=== PATIENT | female | born 1955 | race Caucasian/White ===

== ENCOUNTER 2020-12-25 11:12 | Inpatient (IN) | payer BC, MEDICARE ==
[2020-12-25] MEDS ORDERED: HEPARIN SOD,PORK IN 0.45% NACL 25,000 UNIT in 0.45% NACL 1 250ML.BAG IV ONE (11:55)
[2020-12-25] MEDS ORDERED: LIDOCAINE 1% INJ 10MG/ML (20 ML MDV) ONE (12:27)
[2020-12-25] MEDS ORDERED: VERAPAMIL 2.5 MG/ML 2 ML AMP ONE (12:27)
[2020-12-25] MEDS ORDERED: TICAGRELOR 90 MG TAB ONE (12:38)
[2020-12-25] MEDS ORDERED: LIDOCAINE 1% INJ 10MG/ML (20 ML MDV) SQ ONE (12:40)
[2020-12-25] MEDS ORDERED: TICAGRELOR 90 MG TAB PO ONE (12:41)
[2020-12-25] MEDS ORDERED: VERAPAMIL SYRINGE (5 MG/10 ML) INTRAARTER ONE (12:42)
[2020-12-25] MEDS ORDERED: HEPARIN SODIUM 1,000 UN/ML (10ML VL) ONE (12:42)
[2020-12-25] MEDS ORDERED: HEPARIN SODIUM 1,000 UN/ML (10ML VL) IV ONE (12:45)
[2020-12-25] MEDS ORDERED: NITROGLYCERIN 1000MCG/10ML SYRINGE INTRACORON ONE (12:53)
[2020-12-25] MEDS ORDERED: IOPAMIDOL-370 125ML BTL INJ ONE (13:00)
[2020-12-25] MEDS ORDERED: IOPAMIDOL-370 100ML BTL INJ ONE (13:12)
[2020-12-25] MEDS ORDERED: IV FLUID CONTINUATION 900 ML IV ONE (13:13)
[2020-12-25] MEDS ORDERED: RX INFO: IV CONTRAST WAS GIVEN 1 EACH MISC MISCELLANE PRN (13:21)
[2020-12-25] MEDS ORDERED: ZOLPIDEM 5 MG TAB PO PRN (13:21)
[2020-12-25] MEDS ORDERED: ATROPINE SULFATE 0.1 MG/ML 10ML SYRINGE IV PRN (13:21)
[2020-12-25] MEDS ORDERED: MAG HYDROX/AL HYDROX/SIMETH 30 ML CUP PO PRN (13:21)
[2020-12-25] MEDS ORDERED: NITROGLYCERIN SL TABS 0.4 MG TAB SUBLINGUAL PRN (13:21)
[2020-12-25] MEDS ORDERED: SODIUM CHLORIDE 0.9% 1,000 ML IV SCH (13:30)
[2020-12-25 14:02] VITALS: BMI 26.3
--- NOTE | 2020-12-25 16:41 | PTCA ---
PERCUTANEOUSTRANS CORORONARY ANGIOGRAPHY Mrs. Babb is a 65-year-old female with no prior documented history of cardiac disease who presented to [facility] with symptoms of chest discomfort and evidence of non STEMI. She underwent cardiac catheterization by Dr. Cool and was found to have a severe stenosis involving the proximal LAD. In view of that, recommendation made regarding angioplasty and stenting, the procedure as well as the risks and complications were discussed with the patient who is in full understanding and agreement. PROCEDURE: Patient was brought to pathology laboratory director in a fasting semi-sedated state after receiving fentanyl and Benadryl and achieving moderate conscious sedated state. Using Xylocaine anesthesia and a guidewire exchange technique the 6-Ethiopian sheath in the right radial artery was exchanged to a new 6-Ethiopian sheath. Following that, a 6-Ethiopian EBU 3.75 was introduced into the system. After cannulating the left main, a 0.014 balanced medium weight J-wire was advanced across the lesion, positioned distally. Then a 2.5 x 12 mm NC Trek balloon was advanced and one inflation at 8 atmospheres were done. Following that, the balloon was removed and a 3.25 x 23 mm Xience [place] stent was advanced, deployed and post-dilated at 16 atmospheres. Following that, the balloon was removed and a 3.5 x 8 mm Xience [place] stent was deployed proximal to the first one and post dilated at 14 atmospheres. After the last inflation, after appropriate wait, the balloon and the guidewire were withdrawn back in the guiding catheter. Images were obtained, repeated. Those images reveal stable successful stenting. At that point, the guiding catheter, the balloon and the guidewire were removed. The sheath was removed. Hemostasis was obtained with deployment of a TR band. There was no immediate complication. Patient is returned to her room in stable condition. Of note, the patient had EKG changes but no chest discomfort with the inflation. She received a total of 6000 units of intravenous heparin as well as oral loading dose of Brilinta. Her ACT was followed. She also received intra-arterial verapamil. RESULTS: Successful stenting of a long segment of the proximal LAD with reduction of stenosis from 99% to 0%. RECOMMENDATION: Patient will be continued on aspirin, Brilinta, statin. The importance of dual antiplatelet treatment were discussed with the patient who is in full understanding and agreement. Duration of sedation is 31 minutes. MMODL / IJN: [id number] /
--- NOTE | 2020-12-25 16:41 | LTR ---
DATE OF SERVICE: 12/25/2020 Dear Ms. Griggs: I had the pleasure of performing coronary angioplasty and stenting on Mrs. Babb [facility] on December 25 and a full copy of procedure note will be forwarded to you. In brief, she was found to have significant obstructive disease in the proximal LAD, underwent successful stenting of that vessel. I am hopeful that this procedure will stabilize her status. Thank you again for allowing me to participate in her care. Please feel free to call for any questions. Sincerely yours, MMMARTINEZL / IJN: [id number] /
[2020-12-25] MEDS: ACETAMINOPHEN TAB 325 MG TAB PO PRN (17:14)
[2020-12-25] MEDS ORDERED: ATORVASTATIN 80 MG TAB PO SCH (21:00)
[2020-12-25] MEDS: METOPROLOL TARTRATE 25 MG TAB PO SCH (21:29)
[2020-12-25] MEDS: TICAGRELOR 90 MG TAB PO SCH (21:29)
[2020-12-26] MEDS: ACETAMINOPHEN TAB 325 MG TAB PO PRN (05:03)
[2020-12-26 05:34] VITALS: TEMP 98.1
[2020-12-26] MEDS ORDERED: ASPIRIN 81 MG PO SCH (09:00)
[2020-12-26] MEDS: METOPROLOL TARTRATE 25 MG TAB PO SCH (09:16)
[2020-12-26] MEDS: TICAGRELOR 90 MG TAB PO SCH (09:16)
--- NOTE | 2020-12-26 09:23 | P.PN ---
Subjective This is a 65-year-old female with past medical history of thyroid nodules status post right sided thyroidectomy, former smoker. Patient does not follow with a baby counselor. Patient initially presented to [facility] with chest pain. She found to have abnormal troponins and EKG changes concerning for NSTEMI. She underwent cardiac catheterization with Dr. Cool at [facility] which revealed critical lesion with 95% stenosis involving the mid LAD between the 2 diagonal branches, dominant circumflex free of occlusive disease, and n ondominant right free of occlusive disease, normal end-diastolic pressure. Stenting was recommended and patient was transferred to the [facility] for stenting. Patient underwent successful stenting x 2 of the proximal LAD by Dr. Cooney. Echocardiogram on 12/25/2020 at [facility] revealed an EF of 4550%, moderate to severe hypokinesia of the mid and apical septal area, trace mitral regu rgitation, trace tricuspid regurgitation. Patient seen and examined at bedside, no acute distress. She denies any chest pain, shortness of breath, lightheadedness, dizziness. Her right radial cath site had some oozing, but improving. Vital signs are stable BP 126/71, heart rate 81, afebrile, maintaining oxygen saturations on room air. Her labs are pending today. She's currently maintained on aspirin 81mg daily, atorvastatin 80 mg nightly, lisinopril 2.5 mg daily, metoprolol tartrate 25 mg twice a day, Brilinta 90 mg twice a day. GENERAL: Well-appearing, well-nourished and in no acute distress. NECK: Supple without JVD or thyromegaly. LUNGS: Breath sounds clear to auscultation bilaterally. Respiration equal and unlabored. No wheezes, rales or rhonchi. HEART: Regular rate and rhythm without murmurs, rubs or gallops. S1 and S2 heard. EXTREMITIES: Normal range of motion, no edema. No clubbing or cyanosis. Peripheral pulses intact. SKIN: Right radial cath site- clean, some mild serosanguineous drainage, strong 2+ pulses. ASSESSMENT NSTEMI s/p PCI to proximal LAD Ischemic cardiomyopathy with mildly decreased EF. Former tobacco use PLAN -Continue dual antiplatelet therapy with aspirin and Brilinta. -Case management has been consulted for coverage, per case management. Able to get up patient for a free month and possibly a coupon for another free month -Continue atorvastatin, lisinopril, metoprolol tartrate. -From a cardiology perspective, patient is stable to be discharged home. Follow up with Dr. Cool in 1 week. Nurse Practitioner note has been reviewed, I agree with a documented findings and plan of care. Patient was seen and examined. Objective - Vital Signs Vital signs: Vital Signs Temp 98.1 F 12/26/20 04:00 Pulse 81 12/26/20 04:00 Resp 16 12/26/20 04:00 BP 126/71 12/26/20 04:00 Pulse Ox 97 12/26/20 04:00 Intake & Output 12/25/20 12/26/20 12/26/20 18:59 06:59 18:59 Intake Total 330 Balance 330 Weight 73.936 kg 61 kg Intake: IV 150 Oral 180 Other: Voiding Method Toilet # Voids 1 2
[2020-12-26 09:46] VITALS: BP 112/71; PULSE 83; RESP 18
--- NOTE | 2020-12-26 10:49 | P.DS ---
Providers Date of admission: 12/25/20 12:18 Expected date of discharge: 12/26/20 Attending physician: Papo Granados Consults: 12/25/20 13:21 Consult Physician Routine Consulting Provider: [facility] Consult Reason/Comments: Post Interventional patient Do you want consulting provider notified?: Already Contacted Primary care physician: Papo Granados [facility] Course: this is a 65-year-old female patient of Wesley Dolan NP with past medical history of thyroid nodules status post right sided thyroidectomy, remote history of tobacco use. Patient initially presented to [facility] with chest pain and found to have elevated troponins and EKG changes concerning for non-ST elevated myocardial infarction. Patient underwent heart catheterization at [facility] with Dr. Cool that revealed a critical lesion at 95% stenosis involving the mid LAD between the 2 diagonal branches, dominant circumflex free of occlusive disease and nondominant right free of occlusive disease, normal end-diastolic pressure. Patient was then transferred to [facility] for stenting of the proximal LAD which was performed by Dr. Cooney yesterday. Echocardiogram revealed EF of 45- 50% with moderate to severe hypokinesia of the mid and apical septal area, trace mitral regurgitation, trace tricuspid regurgitation. Patient is chest pain free, no lightheadedness or dizziness, no shortness of breath.no shortness of breath. Pulse ox is 90% on room air. She's been afebrile, heart rate 83, blood pressure 112/71.manager hotel has been a sinus rhythm. DISCHARGE DIAGNOSES 1. Non-ST elevated myocardial infarction status post stent in the mid LAD. 2. Thyroid nodule status post right thyroidectomy. 3. Remote history of tobacco use DISCHARGE PLAN Home Impression and plan of care have been directed as dictated by the signing physician. Torri Wyatt nurse practitioner acting as scribe for signing physician. Patient Condition at Discharge: Good Plan - Discharge Summary Discharge Rx Participant: No New Discharge Prescriptions: New Aspirin 81 mg PO DAILY tab Nitroglycerin Sl Tabs [Nitrostat] 0.4 mg SUBLINGUAL Q5M PRN #25 tab PRN Reason: Chest Pain Metoprolol Tartrate [Lopressor] 25 mg PO BID 30 Days #60 tab lisinopriL [Zestril] 2.5 mg PO DAILY 30 Days #30 tab Ticagrelor [Brilinta] 90 mg PO BID 30 Days #60 tab Atorvastatin [Lipitor] 80 mg PO HS #30 tab Continue Multivitamin/Iron/Folic Acid [Centrum Complete Multivit Tab] 1 tab PO DAILY Acetaminophen Tab [Tylenol] 650 mg PO Q8H PRN PRN Reason: Pain Discontinued Ibuprofen [Motrin] 200 mg PO Q8H PRN PRN Reason: Pain Discharge Medication List Acetaminophen Tab [Tylenol] 650 mg PO Q8H PRN 04/03/15 [History] Multivitamin/Iron/Folic Acid [Centrum Complete Multivit Tab] 1 tab PO DAILY 04/03/15 [History] Aspirin 81 mg PO DAILY tab 12/26/20 [Rx] Atorvastatin [Lipitor] 80 mg PO HS #30 tab 12/26/20 [Rx] Metoprolol Tartrate [Lopressor] 25 mg PO BID 30 Days #60 tab 12/26/20 [Rx] Nitroglycerin Sl Tabs [Nitrostat] 0.4 mg SUBLINGUAL Q5M PRN #25 tab 12/26/20 [Rx] Ticagrelor [Brilinta] 90 mg PO BID 30 Days #60 tab 12/26/20 [Rx] lisinopriL [Zestril] 2.5 mg PO DAILY 30 Days #30 tab 12/26/20 [Rx] Follow up Appointment(s)/Referral(s): Becka Griggs NPC [Nurse Practitioner] - 1 Week Yaneli Cool MD [STAFF PHYSICIAN] - 1 Week Patient Instructions/Handouts: Safe Use of Antiplatelet Medication (DC), After Radial Heart Catheterization (GEN) Activity/Diet/Wound Care/Special Instructions: Cardiology Instructions After Cardiac Catheterization with Stent Placement: 1. Aspirin as anti-platelet therapy - Aspirin lessens the chance of heart attack and stroke. It helps prevent blood clots from forming, allowing the blood to flow more easily. Each day, you will take one 81 mg (non-enteric coated) tablet daily. You will be taking aspirin as a lifelong medication. Do not stop unless instructed by your doctor. 2. Anti-platelet Therapy. -In addition to aspirin, you will take ONE of the following anti-platelet med ications daily. This will help prevent a clot from forming in your stent: Brilinta (ticagrelor) -You will need to take your anti-platelet medicine every day for 12 months -Please consult your heart doctor before you stop this medicine. -They may want you to continue for a longer period of time. 3. Statins -A statin medication lowers cholesterol levels in the blood. This helps slow the progression of heart disease. - Please take your statin medication as prescribed by your doctor. -You may be taking one of the following statins: Lipitor (atorvastatin) Other Medications: -ACEI/ Angiotensin II Receptor Francisco- (Lisinopril) can help your heart work better after a heart attack and decrease the amount of damage from a heart attack -Beta francisco (metoprolol tartrate) Is a medication that protects your heart from stress and can prevent future heart attacks. It can slow your heart rate. It can take weeks for your body to get used to a beta francisco. The dose may need to be changed a few times as your body adjusts Do not stop taking these medicines without talking to your doctor. -Take all other medicines as directed by your doctor. Do not take any extra aspirin or ibuprofen. They can increase your risk of bleeding. Many [id number] drugs contain aspirin. If you are unsure about what the drug contains, check with your pharmacist before taking it. -For mild discomfort, you may take plain Tylenol (acetaminophen). Follow dose directions, but do not take more than 4,000 mg of acetaminophen in 24 hours. Contact your doctor right away or go to the nearest hospital Emergency Room if you have: -Severe angina or chest pain. (This may be a sign of a problem with your stent.) -Excessive bruising, blood in urine/stool or black tarry stools. Healthy LifeStyle It is important to keep a heart healthy lifestyle. This can improve your long- term health and decrease your risk for heart attacks. -Managing your blood cholesterol, blood pressure, weight, and stress. -The importance of regular exercise. -Heart Healthy Diet CARDIAC CATH Support your puncture site by applying firm, steady pressure whenever you cough, laugh, sneeze or bear down to have a bowel movement (2-day restriction). Watch for any excessive bruising, active bleeding, a firm knot forming under your skin, extreme tenderness and signs of infection (redness, swelling, fever). Shower daily, do not soak puncture in a tub bath, jacuzzi, pool, rosales etc. for 1 week. This is to prevent risk of infection. Drink plenty of fluids the day of and day after your procedure to flush contrast dye out of your kidneys. Take all medications as directed. Never stop any new medication without your physicians OK. No driving for 2 days after procedure. 5- pound weight lifting restriction for 1 week. Low sodium/low fat diet. Activity limited until follow up appointment with your aircraft motor mechanic. In case of any problems, please call [facility] [place] @ [phone]. Discharge Disposition: HOME SELF-CARE
[2020-12-26 10:50] LABS: African American GFR (CKD) >90 (>60 ml/min/1.73 sqM); Anion Gap 10 mmol/L; Blood Urea Nitrogen 14 mg/dL (7-17); Carbon Dioxide 23 mmol/L (22-30); Chloride 108 mmol/L (98-107); Glucose 145 mg/dL (74-99); Non-African American GFR(CKD) >90 (>60 ml/min/1.73 sqM); Potassium 4.2 mmol/L (3.5-5.1); Sodium 141 mmol/L (137-145)
--- NOTE | 2021-01-02 16:29 | P.HPIM ---
History of Present Illness H&P Date: 12/25/20 Chief Complaint: Non-ST elevation RI HISTORY OF PRESENT ILLNESS: This is a 65-year-old female with a previous medical history significant for hyperlipidemia currently not taking any medication at this time, otherwise no other health issues who presented to the emergency department at [facility] with left-sided chest pressure associated with increa sed shortness breath initially patient stated that she had a mammogram few weeks ago and thought that her left-sided chest pain is related to the pressure being placed to the mammogram she contacted her doctor's office and she was asked to go to the ER for evaluation her 12-lead EKG didn't show any evidence of acute ST-T wave changes, however of her troponin came back positive so the patient was started on heparin drip, she was started on aspirin 325 mg once every day, along with a statin Lipitor 40 mg orally once every day and she was admitted [facility] where she underwent left heart catheterization that showed a long segment of 99% stenosis of the LAD she was transported to [facility] catheter builder for per continue his current intervention was done successfully by Dr. Cooney with the reduction of the stenosis of from 99% to 0% patient then was started on aspirin 81 mg orally twice every day, Brilinta 90 mg orally twice every day as well as atorvastatin 80 mg orally once every day, she was kept in the hospital for overnight prior to her discharge. REVIEW OF SYSTEMS: Constitutional: No documented fever, no chills, no night sweats. No weight change. No weakness, fatigue or lethargy. No daytime sleepiness. HEENT: No headache. No blurred vision or double vision, no loss of vision. No loss of Hearing, no ringing in the ears, no dizziness. No nasal drainage or congestion. No epistaxis. No sore throat. Lungs: positive for shortness of breath, no cough, no sputum production. No wheezing. Reports dyspnea with activity. Cardiovascular: positive for chest pain, no lower extremity edema. No palpitations. No paroxysmal nocturnal dyspnea. No orthopnea. No lightheadedness or dizziness. No syncopal episodes. Abdominal: Reports abdominal pain. No nausea, vomiting. No diarrhea. No constipation. No bloody or tarry stools reports loss of appetite. Genitourinary: No dysuria, increased frequency, urgency. No urinary retention. Musculoskeletal: No myalgias. No muscle weakness, no gait dysfunction, no frequent falls. No back pain. No neck pain. Integumentary: No wounds, no lesions. No rash or pruritus. No unusual bruising. No change in hair or nails. Neurologic: No aphasia. No facial droop. No change in mentation. No head injury. No headache. No paralysis. No paresthesia. Psychiatric: No depression. No anxiety. No mood swings. Endocrine: No abnormal blood sugars. No weight change. PAST MEDICAL HISTORY: Coronary artery disease status post left heart catheterization with 99% stenosis of LAD. Hyperlipidemia. Hypertension and hypertensive cardiovascular disease. Osteoarthritis. Hypothyroidism. PAST SURGICAL HISTORY: Cholecystectomy. Hysterectomy SOCIAL HISTORY: Patient used to smoke about a pack every day she smoked for a few years and quit many years ago. She denies any alcohol ingestion, no drug abuse. FAMILY HISTORY: Father from lung cancer, he also had a history of deafness, mother with history of heart disease, sister with heart disease as well. PHYSICAL EXAMINATION: General: 65-year-old female laying down in bed in no apparent distress. HEENT: Head is atraumatic, normocephalic, pupils were equal round reactive to light and recommendation, extraocular muscle movement were intact, sclera nonicteric, conjunctivae were pale, mucous membranes of the mouth are somewhat dry. Neck: Supple, no JVP, normal carotid upstroke bilaterally, no lymphadenopathy. Chest: Decreased breath sounds at the bases, few rhonchi, no extremity wheezes, no chest wall tenderness, no intercostal retractions. Heart: First heart sound is normal, second heart sounds normal there is no gallop or murmur. Abdomen: Soft, nontender, nondistended, positive bowel sounds. Extremities: There is no edema no calf tenderness DP +2 bilaterally. Neurologic examination: Patient is awake alert and oriented X 3, cranial nerves II-12 appear grossly intact, muscle power were 5 out of 5 in upper extremities and 5 out of 5 in bilateral lower extremities, deep tendon reflexes normal bilaterally. ASSESSMENT AND PLAN: 1. Non-ST elevation RI status post left heart catheterization and PCI of the LAD. Continue aspirin 81 mg once every day continue Brilinta 90 mg orally twice every day , continue metoprolol 25 mg orally twice every day and lisinopril 2.5 mg once every day, monitor the patient very closely, over the next 24 hours. 2. Hypertension and hypertensive cardiovascular disease. Continue patient on metoprolol 25 mg orally twice every day and lisinopril 2.5 mg once every day, monitor the patient blood pressure very closely. 3. Hyperlipidemia. Continue patient on Lipitor 80 mg orally once every day. 4. Osteoarthritis. Avoid NSAIDs, continue Tylenol 650 mg every 6 hours as needed. 5. Thyroid nodule status post right thyroidectomy. 6. Remote history of tobacco use and dependence . Abstinence from tobacco products. 7. Total lifestyle changes and risk factors modifications . 8. DVT prophylaxis. Early ambulation. 9. GI prophylaxis. Continue with Protonix 40 mg once every day. 10. Admitted to inpatient. Estimate a length of stay 2 midnights 11. Full code. 12. Home tomorrow morning. Past Medical History Past Medical History: Thyroid Disorder Additional Past Medical History / Comment(s): previously 3 nodules on right side History of Any Multi-Drug Resistant Organisms: None Reported Past Surgical History: Hysterectomy Additional Past Surgical History / Comment(s): previous thyroidectomy - right side. Past Anesthesia/Blood Transfusion Reactions: No Reported Reaction Past Psychological History: No Psychological Hx Reported Smoking Status: Former smoker Past Alcohol Use History: Occasional Past Drug Use History: None Reported - Past Family History Father Family Medical History: Cancer, Hearing Disorder / Deafness Additional Family Medical History / Comment(s): lung Medications and Allergies Home Medications Medication Instructions Recorded Confirmed Type Acetaminophen Tab [Tylenol] 650 mg PO Q8H PRN 04/03/15 12/25/20 History Multivitamin/Iron/Folic Acid 1 tab PO DAILY 04/03/15 12/25/20 History [Centrum Complete Multivit Tab] Aspirin 81 mg PO DAILY tab 12/26/20 Rx Atorvastatin [Lipitor] 80 mg PO HS #30 tab 12/26/20 Rx Metoprolol Tartrate [Lopressor] 25 mg PO BID 30 Days #60 tab 12/26/20 Rx Nitroglycerin Sl Tabs [Nitrostat] 0.4 mg SUBLINGUAL Q5M PRN #25 tab 12/26/20 Rx Ticagrelor [Brilinta] 90 mg PO BID 30 Days #60 tab 12/26/20 Rx lisinopriL [Zestril] 2.5 mg PO DAILY 30 Days #30 tab 12/26/20 Rx Allergies Allergy/AdvReac Type Severity Reaction Status Date / Time No Known Allergies Allergy Verified 12/25/20 15:30 Results CBC & Chem 7: 12/26/20 09:50 Thrombosis Risk Factor Assmnt - Choose All That Apply Any of the Below Risk Factors Present?: No Other Risk Factors: Yes Each Risk Factor Represents 2 Points: Age 61-74 years Other congenital or acquired thrombophilia - If yes, enter type in comment: No Thrombosis Risk Factor Assessment Total Risk Factor Score: 2 Thrombosis Risk Factor Assessment Level: Low Risk
== END 2020-12-26 14:12 | disposition home or self-care (01) | DRG 247 ==
LOC: 3SCARD 12:18
PROVIDERS: ADMIT Internal Medicine; ATTEND Internal Medicine
PROC: B2111ZZ Fluoroscopy of Multiple Coronary Arteries using Low Osmolar Contrast (ICD-10-PCS; principal; 2020-12-25 14:05)
PROC: 027034Z Dilation of Coronary Artery, One Artery with Drug-eluting Intraluminal Device, Percutaneous Approach (ICD-10-PCS; principal; 2020-12-25 14:05)
DX: I21.4 Non-ST elevation (NSTEMI) myocardial infarction (principal); E04.1 Nontoxic single thyroid nodule; E89.0 Postprocedural hypothyroidism; I25.10 Atherosclerotic heart disease of native coronary artery without angina pectoris; I25.5 Ischemic cardiomyopathy; E78.5 Hyperlipidemia, unspecified; I11.9 Hypertensive heart disease without heart failure; M19.90 Unspecified osteoarthritis, unspecified site; Z71.6 Tobacco abuse counseling; Z79.02 Long term (current) use of antithrombotics/antiplatelets; Z79.82 Long term (current) use of aspirin; Z79.899 Other long term (current) drug therapy; Z87.891 Personal history of nicotine dependence; Z90.710 Acquired absence of both cervix and uterus; Z82.49 Family history of ischemic heart disease and other diseases of the circulatory system; Z95.5 Presence of coronary angioplasty implant and graft
CPT/HCPCS: 80048

== ENCOUNTER → 2021-02-04 | Outpatient (CLI) | payer MEDICARE ==
[2021-02-04 14:52] LABS: ALT 21 U/L (8-44); AST 29 U/L (13-35); Chol/HDL Ratio 3.55 Ratio; LDL Cholesterol,Calculated 84.4 mg/dL (0.0-131.0)
== END | disposition home or self-care (01) ==
LOC: LABWHC1 08:17
PROVIDERS: ATTEND Internal Medicine Cardiovascular Disease
DX: I25.10 Atherosclerotic heart disease of native coronary artery without angina pectoris (principal); E78.5 Hyperlipidemia, unspecified
CPT/HCPCS: 36415; 80061; 84450; 84460

== ENCOUNTER → 2022-02-19 | Outpatient (CLI) | payer MEDICARE ==
[2022-02-19 14:20] LABS: African American GFR (CKD) >90 (>60 ml/min/1.73 sqM); Blood Urea Nitrogen 15 mg/dL (7-17); Non-African American GFR(CKD) >90 (>60 ml/min/1.73 sqM)
--- NOTE | 2022-02-19 15:38 | CT ---
EXAMINATION TYPE: CT chest w con DATE OF EXAM: 02/19/2022 COMPARISON: NONE HISTORY: Pneumonia, abnormal findings on xray CT DLP: 400 mGycm. Automated Exposure Control for Dose Reduction was Utilized. TECHNIQUE: CT scan of the thorax is performed following with IV Contrast, patient injected with 70 m L of Isovue 300. FINDINGS: LUNGS: Focal mass or more likely masslike consolidation in the right middle lobe measures 3.7 x 2.2 c m axial image 32.There is additional mass and/or masslike consolidation involving the right lower lob e measuring 6.1 x 4.5 cm axial image 37. Adjacent areas of ground glass opacity and irregular consoli dation are seen. There is additional 1.3 cm more nodular area of the lateral right lower lobe axial i mage 44. Some cystic change in the periphery of the right lower lobe noted axial image 33. Left lung is clear. There is no pleural effusion or pneumothorax seen. The tracheobronchial tree is patent. MEDIASTINUM: There are no greater than 1 cm hilar or mediastinal lymph nodes. No cardiomegaly or pe ricardial effusion is seen. There is coronary artery calcification and/or stent in the proximal LAD. OTHER: There are simple appearing thin-walled cyst in the upper pole of both kidneys. Dependent small gallstones in the gallbladder are present. There are 2 nonspecific heterogeneous hypodense lesions i n the liver , largest in the right hepatic lobe measures 3.3 cm long axis. Exaggerated thoracic kypho sis. Slight scoliotic curvature. IMPRESSION: Areas of mass or masslike consolidation affect the right middle lobe and right lower lobe likely reflecting in part multilobar pneumonia. However underlying neoplasm is not excluded and shor t interval follow-up advised especially given the nonspecific but suspicious 2 liver lesions.
== END | disposition home or self-care (01) ==
LOC: RADCTMAIN 13:05
PROVIDERS: ATTEND Family Medicine
DX: J16.8 Pneumonia due to other specified infectious organisms (principal); R93.89 Abnormal findings on diagnostic imaging of other specified body structures
CPT/HCPCS: 82565; 84520; 71260; 36415; Q9967

== ENCOUNTER 2022-03-15 16:04 | Emergency (ER) | payer MEDICARE ==
[2022-03-15 16:21] VITALS: TEMP 98.5
[2022-03-15 16:47] LABS: Anisocytosis Slight; Basophils # (A) 0.1 k/uL (0-0.2); Basophils % (A) 1 %; Eosinophils # (A) 0.4 k/uL (0-0.7); Eosinophils % (A) 3 %; Hypochromasia Marked; Lymphocytes # (A) 1.6 k/uL (1.0-4.8); Lymphocytes % (A) 11 %; MCH 25.7 pg (25.0-35.0); MCHC 30.5 g/dL (31.0-37.0); MCV 84.2 fL (80.0-100.0); Mean Platelet Volume 9.4; Monocytes # (A) 0.6 k/uL (0-1.0); Monocytes % (A) 4 %; Neutrophils % (A) 80 %; Platelet Count 395 k/uL (150-450); RDW 16.6 % (11.5-15.5); WBC 13.8 k/uL (3.8-10.6)
--- NOTE | 2022-03-15 16:51 | XR ---
EXAMINATION TYPE: XR chest 2V DATE OF EXAM: 03/15/2022 COMPARISON: NONE HISTORY: Weakness TECHNIQUE: 2 views FINDINGS: There are some patchy airspace consolidation posterior right lower lobe. Left lung is clear . No heart failure. There are no hilar masses. Mediastinum is normal. Bony thorax is intact. IMPRESSION: There are some patchy airspace consolidation right lower lobe and is probably not signifi cantly changed compared to the CT scan of 02/19/2022. Follow-up recommended. Tumor not excluded.
[2022-03-15 16:59] LABS: ALT 30 U/L (4-34); AST 34 U/L (14-36); African American GFR (CKD) >90 (>60 ml/min/1.73 sqM); Albumin 4.1 g/dL (3.5-5.0); Alkaline Phosphatase 94 U/L (38-126); Anion Gap 9 mmol/L; Blood Urea Nitrogen 19 mg/dL (7-17); Calcium 9.3 mg/dL (8.4-10.2); Carbon Dioxide 22 mmol/L (22-30); Chloride 108 mmol/L (98-107); Glucose 153 mg/dL (74-99); Non-African American GFR(CKD) >90 (>60 ml/min/1.73 sqM); Phosphorus 3.7 mg/dL (2.5-4.5); Potassium 4.4 mmol/L (3.5-5.1); Sodium 139 mmol/L (137-145); Total Bilirubin 0.7 mg/dL (0.2-1.3); Total Protein 6.6 g/dL (6.3-8.2)
[2022-03-15 17:17] LABS: HCT 59.1 % (34.0-46.0); RBC 7.01 m/uL (3.80-5.40)
[2022-03-15 17:46] LABS: Partial Thromboplastin Time 24.2 sec (22.0-30.0); Prothrombin Time 10.5 sec (9.0-12.0)
--- NOTE | 2022-03-15 18:16 | ED ---
General Adult HPI - General Chief complaint: Weakness Stated complaint: balance issues,loss appetitie Time Seen by Provider: 03/15/22 17:28 Source: patient Mode of arrival: ambulatory Limitations: no limitations - History of Present Illness Initial comments: Dictation was produced using [employer] dictation software. please excuse any grammatical, word or spelling errors. Chief Complaint: 66-year-old female presents with ataxic gait, word finding difficulties History of Present Illness: 66-year-old female she presents emergency Department 7 days of ataxic gait word finding difficulties. Patient recently is being worked up for likely cancerous lesions. It's not fully worked up. She recently stopped a nurse emergency room. She had a PET scan that showed some positive results in the abdomen. We do not have access to the PET scan results here in emergency department. Patient was up last 7 days has been having trouble ambulating. States that she has shuffling gait and falls in the right side. at the bedside also reports this. is concerned that patient is having abnormal speech. States that she has not had any imaging on her brain. Patient denies any other symptoms at this time. The ROS documented in this emergency department record has been reviewed and confirmed by me. Those systems with pertinent positive or negative responses have been documented in the HPI. All other systems are other negative and/or noncontributory. PHYSICAL EXAM: General Impression: Alert and oriented x3, not in acute distress HEENT: Normocephalic atraumatic, extra-ocular movements intact, pupils equal and reactive to light bilaterally, mucous membranes moist. Cardiovascular: Heart regular rate and rhythm Chest: Able to complete full sentences, no retractions, no tachypnea Abdomen: abdomen soft, non-tender, non-distended, no organomegaly Musculoskeletal: Pulses present and equal in all extremities, no peripheral edema Motor: no focal deficits noted Neurological: CN II-XII grossly intact, mild word finding difficulties. Mild drift to the right lower extremity Skin: Intact with no visualized rashes Psych: Normal affect and mood ED course: 66-year-old male presents to the emergency department for 7 days of neurologic symptoms described as ataxic gait and word finding difficulties. Vital signs upon arrival are within acceptable limits. Patient's well-appearing and in no acute distress at the bedside. Nursing notes and chart review was performed Laboratory evaluation obtained. Hemoglobin 18.0. Unclear cause of polycythemia. Coag panel is unremarkable. Metabolic panel and abdominal labs are negative. Chest x-ray appears to be stable compared to previous. Computed tomography scan of the brain shows ring density in the midline inferior ewelina. Patient was observed in the emergency department for several hours. Disposition options were discussed patient is recommended that patient be transferred to higher level of care due to abnormal CT imaging of the brain. There is a high likelihood that radiographic abnormality is likely cancer lesion. Patient be transferred to [facility]. Accepting physician is Dr. Mendez Was pt. sent in by a medical professional or institution (, [facility], LENS CEMENTER, urgent care, hospital, or fdc...) When possible be specific @ -No Did you speak to anyone other than the patient for history (EMS, parent, family, police, friend...)? What history was obtained from this source @ - at the bedside Did you review nursing and triage notes (agree or disagree)? Why? @ -I reviewed and agree with nursing and triage notes Were old charts reviewed (outside hosp., previous admission, EMS record, old EKG, old radiological studies, urgent care reports/EKG's, fdc records)? Report findings @ - discharge summary and history and physical from December of last year Differential Diagnosis (chest pain, altered mental status, abdominal pain women, abdominal pain men, vaginal bleeding, weakness, fever, dyspnea, syncope, headache, dizziness, GI bleed, back pain, seizure, CVA, palpatations, mental health)? @ -CVA, seizure, intracranial mass EKG interpreted by me (3pts min.). @ -As above X-rays interpreted by me (1pt min.). @ -See above CT interpreted by me (1pt min.). @ -see above U/S interpreted by me (1pt. min.). @ -None done What testing was considered but not performed or refused? (CT, X-rays, U/S, labs)? Why? @ -None What meds were considered but not given or refused? Why? @ -None Did you discuss the management of the patient with other professionals (professionals i.e. [facility] Au, LENS CEMENTER, lab, RT, psych nurse, renal social worker, shipsmith, teacher, uniform patrol police officer, rn case management)? Give summary @ -Dr. Mendez at [facility] Was smoking cessation discussed for >3mins.? @ -No Was critical care preformed (if so, how long)? @ -No Were there social determinants of health that impacted care today? How? (Homelessness, low income, unemployed, alcoholism, drug addiction, transportation, low edu. Level, literacy, decrease access to med. care, nursing home, rehab)? @ -No Was there de-escalation of care discussed even if they declined (Discuss DNR or withdrawal of care, Hospice)? DNR status @ -No What co-morbidities impacted this encounter? (DM, HTN, Smoking, COPD, CAD, Cancer, CVA, ARF, Chemo, Hep., AIDS, mental health diagnosis, sleep apnea, morbid obesity)? @ -None Was patient admitted / discharged? Hospital course, mention meds given and route, prescriptions, significant lab abnormalities, going to OR and other pertinent info. @ -Patient transferred to [facility] for higher level of care. See above for further ED course Undiagnosed new problem with uncertain prognosis? @ -Intracranial mass likely metastatic lesion Drug Therapy requiring intensive monitoring for toxicity (Heparin, Nitro, Insu carlos, Cardizem)? @ -No Were any procedures done? @ -No Diagnosis/symptom? @ -Intracranial mass Acute, or Chronic, or Acute on Chronic? @ -Acute Uncomplicated (without systemic symptoms) or Complicated (systemic symptoms)? @ -Complicated with neurologic findings Side effects of treatment? @ -No Exacerbation, Progression, or Severe Exacerbation? @ -No Poses a threat to life or bodily function? How? (Chest pain, [place], [place], pneumonia, PE, COPD, DKA, ARF, appy, cholecystitis, CVA, Diverticulitis, Homicidal, Suicidal, threat to staff... and all critical care pts) @ -Yes - Related Data Home Medications Medication Instructions Recorded Confirmed Acetaminophen Tab [Tylenol] 650 mg PO Q8H PRN 04/03/15 03/15/22 Multivitamin/Iron/Folic Acid 1 tab PO DAILY 04/03/15 03/15/22 [Centrum Complete Multivit Tab] Albuterol Inhaler [Ventolin Hfa 2 puff INHALATION RT-Q4H PRN 03/15/22 03/15/22 Inhaler] Amoxic-Pot Clav 875-125Mg 1 tab PO Q12H 03/15/22 03/15/22 [Augmentin 875-125] Cholecalciferol [Vitamin D3 (25 50 mcg PO DAILY 03/15/22 03/15/22 Mcg = 1000 Iu)] Ezetimibe [Zetia] 10 mg PO HS 03/15/22 03/15/22 Previous Rx's Medication Instructions Recorded Aspirin 81 mg PO DAILY tab 12/26/20 Atorvastatin [Lipitor] 80 mg PO HS #30 tab 12/26/20 Metoprolol Tartrate [Lopressor] 25 mg PO BID 30 Days #60 tab 12/26/20 lisinopriL [Zestril] 2.5 mg PO DAILY 30 Days #30 tab 12/26/20 Allergies Allergy/AdvReac Type Severity Reaction Status Date / Time No Known Allergies Allergy Verified 03/15/22 19:08 Review of Systems ROS Statement: Those systems with pertinent positive or pertinent negative responses have been documented in the HPI. ROS Other: All systems not noted in ROS Statement are negative. Past Medical History Past Medical History: Thyroid Disorder Additional Past Medical History / Comment(s): previously 3 nodules on right side History of Any Multi-Drug Resistant Organisms: None Reported Past Surgical History: Hysterectomy Additional Past Surgical History / Comment(s): previous thyroidectomy - right side. Past Anesthesia/Blood Transfusion Reactions: No Reported Reaction Past Psychological History: No Psychological Hx Reported Smoking Status: Former smoker Past Alcohol Use History: Occasional Past Drug Use History: None Reported - Past Family History Father Family Medical History: Cancer, Hearing Disorder / Deafness Additional Family Medical History / Comment(s): lung General Exam Limitations: no limitations Course Vital Signs 03/15/22 16:17 Temperature 98.5 F Pulse Rate 80 Respiratory 16 Rate Blood Pressure 142/89 O2 Sat by Pulse 95 Oximetry Medical Decision Making - Lab Data Result diagrams: 03/15/22 16:30 03/15/22 16:30 Lab Results 03/15/22 03/15/22 03/15/22 Range/Units 16:30 16:30 16:30 WBC 13.8 H (3.8-10.6) k/uL RBC 7.01 H (3.80-5.40) m/uL Hgb 18.0 H (11.4-16.0) gm/dL Hct 59.1 H* (34.0-46.0) % MCV 84.2 (80.0-100.0) fL MCH 25.7 (25.0-35.0) pg MCHC 30.5 L (31.0-37.0) g/dL RDW 16.6 H (11.5-15.5) % Plt Count 395 (150-450) k/uL MPV 9.4 Neutrophils % 80 % Lymphocytes % 11 % Monocytes % 4 % Eosinophils % 3 % Basophils % 1 % Neutrophils # 11.0 H (1.3-7.7) k/uL Lymphocytes # 1.6 (1.0-4.8) k/uL Monocytes # 0.6 (0-1.0) k/uL Eosinophils # 0.4 (0-0.7) k/uL Basophils # 0.1 (0-0.2) k/uL Hypochromasia Marked Anisocytosis Slight PT (9.0-12.0) sec INR (<1.2) APTT (22.0-30.0) sec Sodium 139 (137-145) mmol/L Potassium 4.4 (3.5-5.1) mmol/L Chloride 108 H (98-107) mmol/L Carbon Dioxide 22 (22-30) mmol/L Anion Gap 9 mmol/L BUN 19 H (7-17) mg/dL Creatinine 0.58 (0.52-1.04) mg/dL Est GFR (CKD-EPI)AfAm >90 (>60 ml/min/1.73 sqM) Est GFR (CKD-EPI)NonAf >90 (>60 ml/min/1.73 sqM) Glucose 153 H (74-99) mg/dL Calcium 9.3 (8.4-10.2) mg/dL Phosphorus 3.7 (2.5-4.5) mg/dL Magnesium 2.0 (1.6-2.3) mg/dL Total Bilirubin 0.7 (0.2-1.3) mg/dL AST 34 (14-36) U/L ALT 30 (4-34) U/L Alkaline Phosphatase 94 (38-126) U/L Troponin I <0.012 (0.000-0.034) ng/mL Total Protein 6.6 (6.3-8.2) g/dL Albumin 4.1 (3.5-5.0) g/dL 03/15/22 Range/Units 17:27 WBC (3.8-10.6) k/uL RBC (3.80-5.40) m/uL Hgb (11.4-16.0) gm/dL Hct (34.0-46.0) % MCV (80.0-100.0) fL MCH (25.0-35.0) pg MCHC (31.0-37.0) g/dL RDW (11.5-15.5) % Plt Count (150-450) k/uL MPV Neutrophils % % Lymphocytes % % Monocytes % % Eosinophils % % Basophils % % Neutrophils # (1.3-7.7) k/uL Lymphocytes # (1.0-4.8) k/uL Monocytes # (0-1.0) k/uL Eosinophils # (0-0.7) k/uL Basophils # (0-0.2) k/uL Hypochromasia Anisocytosis PT 10.5 (9.0-12.0) sec INR 1.0 (<1.2) APTT 24.2 (22.0-30.0) sec Sodium (137-145) mmol/L Potassium (3.5-5.1) mmol/L Chloride (98-107) mmol/L Carbon Dioxide (22-30) mmol/L Anion Gap mmol/L BUN (7-17) mg/dL Creatinine (0.52-1.04) mg/dL Est GFR (CKD-EPI)AfAm (>60 ml/min/1.73 sqM) Est GFR (CKD-EPI)NonAf (>60 ml/min/1.73 sqM) Glucose (74-99) mg/dL Calcium (8.4-10.2) mg/dL Phosphorus (2.5-4.5) mg/dL Magnesium (1.6-2.3) mg/dL Total Bilirubin (0.2-1.3) mg/dL AST (14-36) U/L ALT (4-34) U/L Alkaline Phosphatase (38-126) U/L Troponin I (0.000-0.034) ng/mL Total Protein (6.3-8.2) g/dL Albumin (3.5-5.0) g/dL Disposition Clinical Impression: Brain mass Disposition: OTHER INSTITUTION NOT DEFINED Condition: Serious Referrals: Edwin Jensen MD [Primary Care Provider] - 1-2 days Time of Disposition: 21:35 - Out of Hospital Transfer - Req. Specs Out of Hospital Transfer - Requested Specifics: Other Emergency Center ([facility])
[2022-03-15] MEDS ORDERED: DEXAMETHASONE SOD PHOSPHATE 10 MG/ML 1 ML VIAL IV STA (19:18)
--- NOTE | 2022-03-15 19:23 | CT ---
EXAMINATION TYPE: CT brain wo con DATE OF EXAM: 03/15/2022 COMPARISON: None HISTORY: ataxia, weakness, trouble walking. CT DLP: 1098.4 mGycm Automated exposure control for dose reduction was used. Images of the brain obtained with no contrast. Ventricles have normal size. There is no mass effect. There is high attenuation in the intracranial a rteries. There is high attenuation in the venous sinuses at the skull base and this could be from con trast. There is a rounded area of increased density measuring 12 mm with a ring shape and lie within the isiah tral ewelina. The fourth ventricle is normal in size. The calvarium is intact. There is normal aeration of the mastoid sinuses. IMPRESSION: Unusual high attenuation in the intracerebral vessels could be some previous contrast material. There is a ring density in the anterior midline inferior ewelina. I would consider possibilities of tumo r or hemorrhagic infarct. Follow-up recommended. The patient apparently has hemoglobin of 18 which co uld explain the high attenuation in the vessels. Patient has history of lung tumor and metastatic dis ease in the brainstem should be highly considered. MR scan would be helpful for further evaluation. Exam was discussed with emergency room attending staff at 7:20 PM.
[2022-03-15 22:13] VITALS: BP 127/87; PULSE 87; RESP 18
== END 2022-03-15 22:13 | disposition other institution (70) ==
LOC: EC 16:04
DX: R22.0 Localized swelling, mass and lump, head (principal); Z87.891 Personal history of nicotine dependence
CPT/HCPCS: 36415; 80053; 83735; 84100; 84484; 85025; 85610; 85730; 71046; 70450; 99285; 96374; J1100

== ENCOUNTER → 2022-04-09 | Outpatient (CLI) | payer MEDICARE ==
--- NOTE | 2022-04-09 11:20 | MR ---
EXAMINATION TYPE: MR brain wo/w con DATE OF EXAM: 04/09/2022 10:49 AM CLINICAL INDICATION:Female, 66 years old with history of C79.31 BRAIN CANCER Lung cancer with mets to the brain. COMPARISON: MRI brain 03/16/2022, CT brain 03/15/2022. TECHNIQUE: Multi planar, multi sequence imaging was performed through the brain including: T1, T2, In version recovery, susceptibility weighted imaging and gradient echo imaging and Diffusion weighted im aging. The patient was then given intravenous contrast and multi planar, T1 fat-saturation images wer e obtained. IV Contrast: 6 cc Gadavist FINDINGS: There is a mass within the ewelina measuring 1.6 x 1.6 x 1.4 cm with surrounding high T2 vasogenic edema . There is postcontrast enhancement with somewhat central nonenhancement. No additional metastatic fo ci visualized. Diffusion-weighted imaging shows no evidence of restricted diffusion to suggest acute/ subacute infarct. Intracranial arterial flow voids are maintained. Midline structures show no abnorma lity. Scattered foci of high T2 signal intensity are seen within the periventricular white matter. Th e susceptibility weighted images blooming effect in the left caudate nucleus likely representing mine ralization. The bone marrow signal demonstrates abnormal high postcontrast signal within the clivus without defin itive CT correlate seen on prior on 03/15/2022. Intrinsic high T1 signal within this region on noncontr ast imaging. Paranasal sinuses and mastoid air cells: No significant paranasal sinus disease. Visualized orbits: Orbital contents are intact. IMPRESSION: 1. Metastatic focus within the ewelina with surrounding vasogenic edema measuring up to 1.6 cm there is central no enhancement suggestive of necrosis. 2. Increased bone marrow signal within the clivus without CT correlate on 03/15/2022. Continued attent ion on follow-up. 3. Nonspecific white matter changes, likely related to small vessel ischemic disease
== END | disposition home or self-care (01) ==
LOC: RADMRIMAIN 09:57
PROVIDERS: ATTEND Radiology Radiation Oncology
DX: C79.31 Secondary malignant neoplasm of brain (principal); C34.31 Malignant neoplasm of lower lobe, right bronchus or lung; R90.82 White matter disease, unspecified; R60.0 Localized edema
CPT/HCPCS: 70553; A9585

== ENCOUNTER 2022-06-09 09:47 | Inpatient (IN) | payer MEDICARE ==
[2022-06-09] MEDS ORDERED: SODIUM CHLORIDE 0.9% 2,000 ML IV STA (10:51)
[2022-06-09] MEDS ORDERED: ONDANSETRON 4 MG/2 ML VIAL IVP STA (10:51)
[2022-06-09] MEDS ORDERED: ACETAMINOPHEN IV (For NPO) 1,000 MG in EMPTY BAG 1 BAG IVPB STA (10:53)
--- NOTE | 2022-06-09 11:01 | ED ---
Nausea/Vomiting/Diarrhea HPI - General Chief complaint: Nausea/Vomiting/Diarrhea Stated complaint: Vomiting,diarrhea Time Seen by Provider: 06/09/22 10:41 Source: patient, RN notes reviewed Mode of arrival: ambulatory Limitations: no limitations - History of Present Illness Initial comments: This is a 66-year-old female who presents to the emergency department for nausea, vomiting, and diarrhea. Patient has stage IV lung and brain cancer. She's currently receiving radiation and is on oral chemotherapy. She is being treated by Dr. Lin and Dr. Shaikh. Symptoms have been particularly bad over the last 3 days. She takes a nausea medication at home which has not been effective. She cannot recall which medication this is. Denies any associated abdominal pain. She has had chills, but has not measured any fevers at home. Denies any sore throat, cough, dyspnea, chest pain, palpitations, abdominal pain, back pain, or headaches. MD complaint: nausea, vomiting, diarrhea Onset/Timin -: days(s) Associated Abdominal Pain: No - Related Data Home Medications Medication Instructions Recorded Confirmed Multivitamin/Iron/Folic Acid 1 tab PO DAILY 04/03/15 06/09/22 [Centrum Complete Multivit Tab] Cholecalciferol [Vitamin D3 (25 50 mcg PO DAILY 03/15/22 06/09/22 Mcg = 1000 Iu)] Ezetimibe [Zetia] 10 mg PO HS 03/15/22 06/09/22 Mekinist 2mg 2 mg PO DAILY@1800 06/09/22 06/09/22 Prochlorperazine [Compazine] 10 mg PO Q6H PRN 06/09/22 06/09/22 Tafinlar 75mg 150 mg PO Q12HR@0600,1800 06/09/22 06/09/22 Previous Rx's Medication Instructions Recorded Aspirin 81 mg PO DAILY tab 12/26/20 Atorvastatin [Lipitor] 80 mg PO HS #30 tab 12/26/20 Metoprolol Tartrate [Lopressor] 25 mg PO BID 30 Days #60 tab 12/26/20 lisinopriL [Zestril] 2.5 mg PO DAILY 30 Days #30 tab 12/26/20 Allergies Allergy/AdvReac Type Severity Reaction Status Date / Time No Known Allergies Allergy Verified 06/09/22 15:06 Review of Systems ROS Statement: Those systems with pertinent positive or pertinent negative responses have been documented in the HPI. ROS Other: All systems not noted in ROS Statement are negative. Past Medical History Past Medical History: Thyroid Disorder Additional Past Medical History / Comment(s): previously 3 nodules on right side, Lung CA, Brain CA History of Any Multi-Drug Resistant Organisms: None Reported Past Surgical History: Hysterectomy Additional Past Surgical History / Comment(s): previous thyroidectomy - right side. Past Anesthesia/Blood Transfusion Reactions: No Reported Reaction Past Psychological History: No Psychological Hx Reported Smoking Status: Former smoker Past Alcohol Use History: Occasional Past Drug Use History: None Reported - Past Family History Father Family Medical History: Cancer, Hearing Disorder / Deafness Additional Family Medical History / Comment(s): lung General Exam Limitations: no limitations General appearance: alert, in no apparent distress Head exam: Present: atraumatic, normocephalic, normal inspection Respiratory exam: Present: normal lung sounds bilaterally. Absent: respiratory distress, wheezes, rales, rhonchi, stridor Cardiovascular Exam: Present: regular rate, normal rhythm, normal heart sounds. Absent: systolic murmur, diastolic murmur, rubs, gallop, clicks Neurological exam: Present: alert, oriented X3, CN II-XII intact Psychiatric exam: Present: normal affect, normal mood Skin exam: Present: warm, dry, intact, normal color. Absent: rash Course Vital Signs 06/09/22 06/09/22 06/09/22 09:51 10:26 12:00 Temperature 99.1 F 101.2 F H Pulse Rate 88 78 Respiratory 24 20 Rate Blood Pressure 99/66 80/49 O2 Sat by Pulse 96 98 Oximetry 06/09/22 06/09/22 06/09/22 13:00 13:35 14:57 Temperature 98.1 F Pulse Rate 90 89 80 Respiratory 20 16 20 Rate Blood Pressure 74/45 92/50 90/50 O2 Sat by Pulse 91 L 98 92 L Oximetry Medical Decision Making - Medical Decision Making This is a 66-year-old female who presents to the emergency department for nausea, vomiting, and diarrhea. Was pt. sent in by a medical professional or institution? @ -No Did you speak to anyone other than the patient for history? @ -Her Did you review nursing and triage notes? @ -Yes, and I agree, it is accurate with regards to the patient's symptoms. Were old charts reviewed? @ -No Differential Diagnosis? @ -Differential Nausea and Vomiting: Gastroenteritis, cholecystitis, appendicitis, pancreatitis, migraine, benign positional vertigo, food borne illness, pyelonephritis, irritable bowel syndrome, influenza, Covid, GERD, incarcerated hernia, intestinal obstruction, this is not meant to be an all-inclusive list. -Differential Fever: Pneumonia, viral URI, endocarditis, myocarditis, pericarditis, otitis, sinusit is, peritonsillar Abscess, retropharyngeal Abscess, epiglottitis, peritonitis, appendicitis, Jammie cystitis, diverticulitis, hepatitis, colitis, UTI, PID, TOA, pyelonephritis, prostatitis, epididymitis, meningitis, encephalitis, pulmonary embolism, CVA, thyroid storm, pancreatitis, adrenal crisis, cavernous sinus thrombosis, this is not meant to be an all-inclusive list. X-rays interpreted by me (1pt min.)? @ -Chest x-ray obtained. My interpretation identifies a right lower lobe infiltrate. What testing was considered but not performed? (CT, X-rays, U/S, labs)? Why? @ -None What meds were considered but not given? Why? @ -None Did you discuss the management of the patient with other professionals? @ -Yes, Dr. Alfaro, who accepts the patient for admission. Did you reconcile home meds? @ -No Was smoking cessation discussed for >3mins.? @ -No Was critical care preformed (if so, how long)? @ -No Were there social determinants of health that impacted care today? How? (Homelessness, low income, unemployed, alcoholism, drug addiction, transportation, low edu. Level, literacy, decrease access to med. care, penitentiary, rehab)? @ -No Was there de-escalation of care discussed even if they declined? (Discuss DNR or withdrawal of care, Hospice)? @ -No What co-morbidities impacted this encounter? (DM, HTN, Smoking, COPD, CAD, Cancer, CVA, Hep., AIDS, mental health diagnosis, sleep apnea, morbid obesity)? @ -Metastatic lung and brain cancer Was patient admitted / discharged? @ -Admitted. Lab work obtained with findings consistent with dehydration and transaminitis. Chest x-ray reveals concerns for a right lower lobe infiltrate. Urinalysis not particularly suggestive of a UTI. Patient was given IV fluids, Decadron, and Zofran. Patient noted to be hypotensive. At one point, her pressure went down to 74/45. However, the patient was completely asymptomatic. She had no dizziness and was able to walk to the bathroom without any difficulty. This was rechecked manually and found to be 90/50. She did end up receiving 3 L of IV fluids due to concern for persistent hypotension. She has since maintained a blood pressure in the 80s to 90s systolically. She did note significant improvement in the nausea and vomiting following medication administ ration of Zofran and Decadron. Patient admitted to medicine for hypotension, pneumonia, and nausea/vomiting. She was started on the pneumonia protocol with ceftriaxone and azithromycin. Consult placed for pulmonology, infectious disease, and hem/onc per the admitting team's request. Undiagnosed new problem with uncertain prognosis? @ -None Drug Therapy requiring intensive monitoring for toxicity (Heparin, Nitro, Insulin, Cardizem)? @ -None Were any procedures done? @ -None Diagnosis/symptom? @ -Pneumonia, fever, hypotension Acute, or Chronic, or Acute on Chronic? @ -Acute Uncomplicated (without systemic symptoms) or Complicated (systemic symptoms)? @ -Complicated Side effects of treatment? @ -None Exacerbation, Progression, or Severe Exacerbation] @ -Not applicable Poses a threat to life or bodily function? @ -Yes This case was discussed in detail with the attending ED physician, Dr. Garcia. Presentation, findings, and treatment plan discussed in detail as well. - Lab Data Result diagrams: 06/09/22 10:39 06/09/22 10:39 Lab Results 06/09/22 06/09/22 06/09/22 Range/Units 10:38 10:39 10:39 WBC 6.4 (3.8-10.6) k/uL RBC 5.02 (3.80-5.40) m/uL Hgb 14.5 (11.4-16.0) gm/dL Hct 44.1 (34.0-46.0) % MCV 88.0 (80.0-100.0) fL MCH 29.0 (25.0-35.0) pg MCHC 32.9 (31.0-37.0) g/dL RDW 21.0 H (11.5-15.5) % Plt Count 220 (150-450) k/uL MPV 9.7 Neutrophils % 88 % Lymphocytes % 6 % Monocytes % 5 % Eosinophils % 0 % Basophils % 0 % Neutrophils # 5.6 (1.3-7.7) k/uL Lymphocytes # 0.4 L (1.0-4.8) k/uL Monocytes # 0.3 (0-1.0) k/uL Eosinophils # 0.0 (0-0.7) k/uL Basophils # 0.0 (0-0.2) k/uL Poikilocytosis Slight Anisocytosis Moderate Microcytosis Slight Sodium 133 L (137-145) mmol/L Potassium 3.8 (3.5-5.1) mmol/L Chloride 99 (98-107) mmol/L Carbon Dioxide 25 (22-30) mmol/L Anion Gap 9 mmol/L BUN 22 H (7-17) mg/dL Creatinine 0.81 (0.52-1.04) mg/dL Est GFR (CKD-EPI)AfAm 88 (>60 ml/min/1.73 sqM) Est GFR (CKD-EPI)NonAf 76 (>60 ml/min/1.73 sqM) Glucose 132 H (74-99) mg/dL Lactic Ac Sepsis Rflx Plasma Lactic Acid Sarmad (0.7-2.0) mmol/L Calcium 8.6 (8.4-10.2) mg/dL Total Bilirubin 1.5 H (0.2-1.3) mg/dL AST 219 H (14-36) U/L ALT 73 H (4-34) U/L Alkaline Phosphatase 157 H (38-126) U/L Total Protein 6.4 (6.3-8.2) g/dL Albumin 3.3 L (3.5-5.0) g/dL Amylase 91 (30-110) U/L Lipase 281 (23-300) U/L Urine Color Yellow Urine Appearance Cloudy H (Clear) Urine pH 5.5 (5.0-8.0) Ur Specific [place] 1.030 (1.001-1.035) Urine Protein 2+ H (Negative) Urine Glucose (UA) Negative (Negative) Urine Ketones Negative (Negative) Urine Blood Trace H (Negative) Urine Nitrite Negative (Negative) Urine Bilirubin Negative (Negative) Urine Urobilinogen <2.0 (<2.0) mg/dL Ur Leukocyte Esterase Negative (Negative) Urine RBC 2 (0-5) /hpf Urine WBC 6 H (0-5) /hpf Ur Squamous Epith Cells 1 (0-4) /hpf Amorphous Sediment Moderate H (None) /hpf Granular Casts 8 (0) /lpf Urine Mucus Few H (None) /hpf Coronavirus (PCR) (Not Detectd) Influenza Type A RNA (Not Detectd) Influenza Type B (PCR) (Not Detectd) 06/09/22 06/09/22 06/09/22 Range/Units 10:40 11:07 11:07 WBC (3.8-10.6) k/uL RBC (3.80-5.40) m/uL Hgb (11.4-16.0) gm/dL Hct (34.0-46.0) % MCV (80.0-100.0) fL MCH (25.0-35.0) pg MCHC (31.0-37.0) g/dL RDW (11.5-15.5) % Plt Count (150-450) k/uL MPV Neutrophils % % Lymphocytes % % Monocytes % % Eosinophils % % Basophils % % Neutrophils # (1.3-7.7) k/uL Lymphocytes # (1.0-4.8) k/uL Monocytes # (0-1.0) k/uL Eosinophils # (0-0.7) k/uL Basophils # (0-0.2) k/uL Poikilocytosis Anisocytosis Microcytosis Sodium (137-145) mmol/L Potassium (3.5-5.1) mmol/L Chloride (98-107) mmol/L Carbon Dioxide (22-30) mmol/L Anion Gap mmol/L BUN (7-17) mg/dL Creatinine (0.52-1.04) mg/dL Est GFR (CKD-EPI)AfAm (>60 ml/min/1.73 sqM) Est GFR (CKD-EPI)NonAf (>60 ml/min/1.73 sqM) Glucose (74-99) mg/dL Lactic Ac Sepsis Rflx Plasma Lactic Acid Sarmad 3.4 H* (0.7-2.0) mmol/L Calcium (8.4-10.2) mg/dL Total Bilirubin (0.2-1.3) mg/dL AST (14-36) U/L ALT (4-34) U/L Alkaline Phosphatase (38-126) U/L Total Protein (6.3-8.2) g/dL Albumin (3.5-5.0) g/dL Amylase (30-110) U/L Lipase (23-300) U/L Urine Color Urine Appearance (Clear) Urine pH (5.0-8.0) Ur Specific [place] (1.001-1.035) Urine Protein (Negative) Urine Glucose (UA) (Negative) Urine Ketones (Negative) Urine Blood (Negative) Urine Nitrite (Negative) Urine Bilirubin (Negative) Urine Urobilinogen (<2.0) mg/dL Ur Leukocyte Esterase (Negative) Urine RBC (0-5) /hpf Urine WBC (0-5) /hpf Ur Squamous Epith Cells (0-4) /hpf Amorphous Sediment (None) /hpf Granular Casts (0) /lpf Urine Mucus (None) /hpf Coronavirus (PCR) Not Detected (Not Detectd) Influenza Type A RNA Not Detected (Not Detectd) Influenza Type B (PCR) Not Detected (Not Detectd) 06/09/22 Range/Units 12:04 WBC (3.8-10.6) k/uL RBC (3.80-5.40) m/uL Hgb (11.4-16.0) gm/dL Hct (34.0-46.0) % MCV (80.0-100.0) fL MCH (25.0-35.0) pg MCHC (31.0-37.0) g/dL RDW (11.5-15.5) % Plt Count (150-450) k/uL MPV Neutrophils % % Lymphocytes % % Monocytes % % Eosinophils % % Basophils % % Neutrophils # (1.3-7.7) k/uL Lymphocytes # (1.0-4.8) k/uL Monocytes # (0-1.0) k/uL Eosinophils # (0-0.7) k/uL Basophils # (0-0.2) k/uL Poikilocytosis Anisocytosis Microcytosis Sodium (137-145) mmol/L Potassium (3.5-5.1) mmol/L Chloride (98-107) mmol/L Carbon Dioxide (22-30) mmol/L Anion Gap mmol/L BUN (7-17) mg/dL Creatinine (0.52-1.04) mg/dL Est GFR (CKD-EPI)AfAm (>60 ml/min/1.73 sqM) Est GFR (CKD-EPI)NonAf (>60 ml/min/1.73 sqM) Glucose (74-99) mg/dL Lactic Ac Sepsis Rflx Y Plasma Lactic Acid Sarmad (0.7-2.0) mmol/L Calcium (8.4-10.2) mg/dL Total Bilirubin (0.2-1.3) mg/dL AST (14-36) U/L ALT (4-34) U/L Alkaline Phosphatase (38-126) U/L Total Protein (6.3-8.2) g/dL Albumin (3.5-5.0) g/dL Amylase (30-110) U/L Lipase (23-300) U/L Urine Color Urine Appearance (Clear) Urine pH (5.0-8.0) Ur Specific [place] (1.001-1.035) Urine Protein (Negative) Urine Glucose (UA) (Negative) Urine Ketones (Negative) Urine Blood (Negative) Urine Nitrite (Negative) Urine Bilirubin (Negative) Urine Urobilinogen (<2.0) mg/dL Ur Leukocyte Esterase (Negative) Urine RBC (0-5) /hpf Urine WBC (0-5) /hpf Ur Squamous Epith Cells (0-4) /hpf Amorphous Sediment (None) /hpf Granular Casts (0) /lpf Urine Mucus (None) /hpf Coronavirus (PCR) (Not Detectd) Influenza Type A RNA (Not Detectd) Influenza Type B (PCR) (Not Detectd) - Radiology Data Radiology results: report reviewed, image reviewed Disposition Clinical Impression: Pneumonia, Gastroenteritis, Hypotension Disposition: ADMITTED IP TO THIS HOSP
[2022-06-09] MEDS: DEXAMETHASONE SOD PHOSPHATE 10 MG/ML 1 ML VIAL IVP SCH (11:04)
[2022-06-09 11:22] LABS: Albumin 3.3 g/dL (3.5-5.0); Calcium 8.6 mg/dL (8.4-10.2); Total Bilirubin 1.5 mg/dL (0.2-1.3); Total Protein 6.4 g/dL (6.3-8.2)
[2022-06-09 11:39] LABS: Anisocytosis Moderate; Basophils % (A) 0 %; Eosinophils % (A) 0 %; HCT 44.1 % (34.0-46.0); HGB 14.5 gm/dL (11.4-16.0); Lymphocytes # (A) 0.4 k/uL (1.0-4.8); Lymphocytes % (A) 6 %; MCHC 32.9 g/dL (31.0-37.0); Mean Platelet Volume 9.7; Microcytosis Slight; Monocytes # (A) 0.3 k/uL (0-1.0); Monocytes % (A) 5 %; Neutrophils # (A) 5.6 k/uL (1.3-7.7); Neutrophils % (A) 88 %; Platelet Count 220 k/uL (150-450); Poikilocytosis Slight; RBC 5.02 m/uL (3.80-5.40); WBC 6.4 k/uL (3.8-10.6)
[2022-06-09 11:46] LABS: Potassium 3.8 mmol/L (3.5-5.1)
[2022-06-09] MEDS ORDERED: SODIUM CHLORIDE 0.9% 1,000 ML IV STA (12:17)
--- NOTE | 2022-06-09 14:14 | XR ---
EXAMINATION TYPE: XR chest 2V DATE OF EXAM: 06/09/2022 COMPARISON: Chest x-ray March 15, 2022 HISTORY: Fever. TECHNIQUE: Frontal and lateral views of the chest are obtained. FINDINGS: There is no is patchy opacity in the right lower lobe on current study. Patchy horizontal opacity left lung base. No pleural effusion or pneumothorax seen bilaterally. The cardiac silhouette size is stable and upper limits of normal. The osseous structures are intact. IMPRESSION: Patchy left basilar linear atelectasis. There is more suspicious right lower lobe acute infiltrate and/or atelectasis.
[2022-06-09] MEDS ORDERED: AZITHROMYCIN 500 MG in SODIUM CHLORIDE 0.9% 250 ML IVPB STA (14:28)
[2022-06-09] MEDS ORDERED: PNEUMONIA PROTOCOL UTILIZED 1 EACH MISC PO PRN (14:28)
[2022-06-09] MEDS ORDERED: NALOXONE 0.4 MG/ML 1 ML VIAL IV PRN (14:49)
[2022-06-09] MEDS ORDERED: IBUPROFEN 400 MG TAB PO PRN (14:49)
[2022-06-09] MEDS ORDERED: KETOROLAC 15 MG/ML 1 ML VIAL IVP PRN (14:49)
[2022-06-09] MEDS ORDERED: ONDANSETRON 4 MG/2 ML VIAL IVP PRN (14:49)
[2022-06-09] MEDS ORDERED: HYDROcodone/APAP 5-325MG 1 EACH TAB PO PRN (14:49)
[2022-06-09] MEDS ORDERED: MORPHINE SULFATE 2 MG/ML SYRINGE IV PRN (14:49)
[2022-06-09 14:51] LABS: Amorphous Sediment,Urine Moderate /hpf; Appearance,Urine Cloudy (Clear); Bilirubin,Urine Negative (Negative); Blood,Urine Trace (Negative); Color,Urine Yellow; Glucose,Urine (UA) Negative (Negative); Granular Casts,Urine 8 /lpf (0); Ketones,Urine Negative (Negative); Leukocyte Esterase,Urine Negative (Negative); Mucus,Urine Few /hpf; Nitrite,Urine Negative (Negative); PH, Urine 5.5 (5.0-8.0); Protein,Urine 2+ (Negative); RBC,Urine 2 /hpf (0-5); Squamous Epithelial Cell,Urine 1 /hpf (0-4); Urobilinogen,Urine <2.0 mg/dL (<2.0); WBC,Urine 6 /hpf (0-5)
[2022-06-09] MEDS: SODIUM CHLORIDE 0.9% 1,000 ML IV SCH (15:44)
[2022-06-09] MEDS ORDERED: PROCHLORPERAZINE 10 MG TAB PO PRN (15:44)
[2022-06-09] MEDS: PANTOPRAZOLE 40 MG/10 ML VIAL IVP SCH ×2 (18:07→22:28)
[2022-06-09] MEDS: METOPROLOL TARTRATE 25 MG TAB PO SCH (22:27)
--- NOTE | 2022-06-10 01:44 | HP ---
HISTORY AND PHYSICAL CHIEF COMPLAINT: Nausea, vomiting, diarrhea. HISTORY OF PRESENT ILLNESS: This is a 66-year-old woman with a past medical history of multiple medical problems including lung cancer with METS to the brain, was complaining of nausea, vomiting, and diarrhea also. The patient has stage IV lung cancer. The patient was being seen by Dr. Lin and Dr. Shaikh. Evaluation further showed possibly bibasilar pneumonia, right more the left. The patient was admitted for further evaluation and treatment. There is no history of any fever, rigors, or chills at this time. PAST MEDICAL HISTORY: History of lung cancer, thyroid disorder, rest of the history and rest of the chart is also reviewed. HOME MEDICATIONS: Reviewed include Compazine, doses and rest of medications reviewed. ALLERGIES: None. FAMILY HISTORY: History of lung cancer. SOCIAL HISTORY: Previous history of smoking. REVIEW OF SYSTEMS: A 14-point review is negative except as mentioned earlier. PHYSICAL EXAMINATION: VITAL SIGNS: Pulse is 89, blood pressure ntd, respirations 16. HEENT: Conjunctivae normal. CARDIOVASCULAR: S1, S2. RESPIRATIONS: Diffuse scattered rhonchi. ABDOMEN: Soft, nontender. LEGS: No edema, no swelling. NERVOUS SYSTEM: No focal deficits. SKIN: No ulcer, rash, bleeding. JOINTS: No active deforming arthropathy. LABORATORY DATA: Reviewed. ASSESSMENT: 1. Right lower lobe pneumonia. 2. Nausea, vomiting, diarrhea, possible acute gastroenteritis. 3. Lung cancer with mets to the brain. 4. Abnormal labs, multiple. RECOMMENDATIONS AND DISCUSSION: This is a 66-year-old woman who presented with multiple complex medical issues. At this time, we will monitor the patient closely, initiate Rocephin and Zithromax. Obtain Infectious Disease, Pulmonary as well as Hematology Oncology evaluation. Repeat labs. Home medication will be continued once they are confirmed. Prognosis extremely guarded because of multiple complex medical issues. Further recommendations to follow. See orders for details. MMODL / IJN: [id number] / MTDD
--- NOTE | 2022-06-10 04:03 | P.CNPUL ---
History of Present Illness Consult date: 06/10/22 Requesting physician: Marlyn Acevedo Reason for consult: pneumonia, lung mass Chief complaint: Nausea, vomiting, diarrhea History of present illness: I'm seeing this patient in new consultation today 06/10/2022 in regard to a known history of lung cancer and possible pneumonia. 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 Garima finch. Patient is already established with an oncologist Dr. Lin. Unfortunately, I do not have access to the patient's records at this time. Apparently, the patient presented to her primary care provider back in March for dizziness, which resu lted in the neurological workup and brain MRI which was suspicious malignancy thought to be metastatic. Patient was then transferred down to [facility] for pulmonary workup where she reportedly had a lung biopsy which showed lung cancer. Patient has been receiving targeted therapy with Tafinilar and Mekinist. Patient reportedly has had 5 rounds of radiation to the brain managed by Dr. Shaikh. A follow-up brain MRI done yesterday morning showed an interval decrease in the pontine metastatic lesion with persistent central non- enhancement suggestive of necrosis, a left frontal area blooming artifact measuring up to 9 mm with some postcontrast enhancement suggestive of cavernous hemiangioma and is thought to be less likely metastastic disease which was not a significant change from prior exam, and some nonspecific white matter changes likely related to small vessel ischemia. Most recent chest CT we have available was done on 02/19/2022 which showed areas of masslike consolidation affecting the right middle and right lower lobes. There were also 2 suspicious liver lesion seen. Patient is currently lying in bed, on room air, in no acute distress. She reportedly came into the emergency room yesterday evening due to some persistent nausea, vomiting, and diarrhea for the last couple days. She has no pulmonary complaints. A chest x-ray done on arrival showed a right lower lobe infiltrate and/or atelectasis thought to be acute by the radiologist. Patient denies any shortness of breath, chest pain, cough, fever. Denies sick contacts. Negative for COVID-19 and influenza. CBC on arrival showed no leukocytosis with a WBC count of 6.4, hemoglobin 14.5, hematocrit 44.1, platelets 220,000. Patient's BMP on arrival showed a sodium 133, potassium 3.8, chloride 99, serum CO2 25, BUN 22, creatinine 0.81, glucose 132. Patient's lactic acid level was slightly elevated at 3.4 and is down to 0.6 after fluid resuscitation with 3 L normal saline. LFTs are mildly elevated. Blood pressure was a little soft on arrival to the ER, but is currently normotensive. Normal saline is infusing at 80 ML's per hour. Patient is being empirically covered with Rocephin and azithromycin. Vital signs are stable. Review of Systems REVIEW OF SYSTEMS: CONSTITUTIONAL: Denies any recent significant weight loss or weight gain. EYES: Denies change in vision. EARS, NOSE, MOUTH, THROAT: Denies headaches, denies sore throat. CARDIOVASCULAR: Denies chest pain, palpitations or syncopal episodes. RESPIRATORY: Denies shortness of breath, cough, congestion or hemoptysis. GASTROINTESTINAL: Denies change in appetite, abdominal pain. Admits nausea, vomiting, diarrhea over the last 2 days. GENITOURINARY: Denies hematuria, denies infections. MUSKULOSKELETAL: Denies pain, denies swelling. INTEGUMENTARY: Denies rash, denies eczema. NEUROLOGICAL: Denies recent memory loss, no recent seizure activity. PSYCHIATRIC: Denies anxiety, denies depression. HEMATOLOGIC/LYMPHATIC: Denies anemia, denies enlarged lymph node Past Medical History Past Medical History: Thyroid Disorder Additional Past Medical History / Comment(s): previously 3 nodules on right side, Lung CA, Brain CA History of Any Multi-Drug Resistant Organisms: None Reported Past Surgical History: Hysterectomy Additional Past Surgical History / Comment(s): previous thyroidectomy - right side. Past Anesthesia/Blood Transfusion Reactions: No Reported Reaction Past Psychological History: No Psychological Hx Reported Smoking Status: Former smoker Past Alcohol Use History: Occasional Past Drug Use History: None Reported - Past Family History Father Family Medical History: Cancer, Hearing Disorder / Deafness Additional Family Medical History / Comment(s): lung Medications and Allergies Home Medications Medication Instructions Recorded Confirmed Type Multivitamin/Iron/Folic Acid 1 tab PO DAILY 04/03/15 06/09/22 History [Centrum Complete Multivit Tab] Aspirin 81 mg PO DAILY tab 12/26/20 06/09/22 Rx Atorvastatin [Lipitor] 80 mg PO HS #30 tab 12/26/20 06/09/22 Rx Metoprolol Tartrate [Lopressor] 25 mg PO BID 30 Days #60 tab 12/26/20 06/09/22 Rx lisinopriL [Zestril] 2.5 mg PO DAILY 30 Days #30 tab 12/26/20 06/09/22 Rx Cholecalciferol [Vitamin D3 (25 50 mcg PO DAILY 03/15/22 06/09/22 History Mcg = 1000 Iu)] Ezetimibe [Zetia] 10 mg PO HS 03/15/22 06/09/22 History Mekinist 2mg 2 mg PO DAILY@1800 06/09/22 06/09/22 History Prochlorperazine [Compazine] 10 mg PO Q6H PRN 06/09/22 06/09/22 History Tafinlar 75mg 150 mg PO Q12HR@0600,1800 06/09/22 06/09/22 History Allergies Allergy/AdvReac Type Severity Reaction Status Date / Time No Known Allergies Allergy Verified 06/09/22 15:06 Physical Exam Vitals: Vital Signs Temp Pulse Resp BP Pulse Ox 06/10/22 03:00 98.2 F 69 16 104/67 98 06/10/22 02:12 68 18 104/67 96 06/10/22 01:00 69 16 100/75 97 06/09/22 22:00 66 16 97/65 98 06/09/22 20:00 68 16 90/60 98 06/09/22 18:00 98 F 69 16 88/60 95 06/09/22 15:59 80 16 90/50 94 L 06/09/22 14:57 98.1 F 80 20 90/50 92 L 06/09/22 13:35 89 16 92/50 98 06/09/22 13:00 90 20 74/45 91 L 06/09/22 12:00 78 20 80/49 98 06/09/22 10:26 101.2 F H 06/09/22 09:51 99.1 F 88 24 99/66 96 Intake and Output 06/09/22 06/09/22 06/10/22 14:59 22:59 06:59 Other: Weight 67.132 kg GENERAL EXAM: Alert, 66-year-old white female, comfortable in no apparent distress. HEAD: Normocephalic and atraumatic EYES: Normal reaction of pupils, equal size. NOSE: Clear with pink turbinates. THROAT: No erythema or exudates. NECK: No masses, no JVD. CHEST: No chest wall deformity. LUNGS: Equal air entry with no crackles, wheeze, rhonchi or dullness. On room air. No conversational dyspnea or accessory muscle use.. CVS: S1 and S2 normal with no audible murmur, regular rhythm. No extra heart sounds ABDOMEN: No hepatosplenomegaly, active bowel sounds, no guarding or rigidity. SPINE: No scoliosis or deformity SKIN: No rashes CENTRAL NERVOUS SYSTEM: No focal deficits, tone is normal in all 4 extremities. EXTREMITIES: There is no peripheral edema, clubbing, or cyanosis. Peripheral pulses are intact. Results - Laboratory Findings CBC and BMP: 06/09/22 10:39 06/09/22 10:39 Abnormal lab findings: Abnormal Labs 06/09/22 06/09/22 06/09/22 10:38 10:39 10:39 RDW 21.0 H Lymphocytes # 0.4 L Sodium 133 L BUN 22 H Glucose 132 H Plasma Lactic Acid Sarmad Total Bilirubin 1.5 H AST 219 H ALT 73 H Alkaline Phosphatase 157 H Albumin 3.3 L Urine Appearance Cloudy H Urine Protein 2+ H Urine Blood Trace H Urine WBC 6 H Amorphous Sediment Moderate H Urine Mucus Few H 06/09/22 06/09/22 10:40 15:53 RDW Lymphocytes # Sodium BUN Glucose Plasma Lactic Acid Sarmad 3.4 H* 0.6 L Total Bilirubin AST ALT Alkaline Phosphatase Albumin Urine Appearance Urine Protein Urine Blood Urine WBC Amorphous Sediment Urine Mucus - Diagnostic Findings Chest x-ray: image reviewed CT scan - chest: image reviewed Assessment and Plan Assessment: Acute gastroenteritis with dehydration. Patient was fluid resuscitated with 3 L normal saline. Nausea, vomiting and diarrhea have slowed. Possible right-sided pneumonia. Chest x-ray showed a possibly acute right lower lobe infiltrate. Patient is clinically asymptomatic. History of stage IV lungs CA with metastasis to the brain and possibly liver. Workup was done at an outside facility area. Currently receiving treatment with Tafinlar and Mekinist. Patient reportedly has received 5 rounds of radiation to the brain. Ex-smoker, remote history of over 30 years ago Plan: Patient's medications, labs, chest x-ray reviewed Patient has no clinical symptoms of acute pneumonia On room air Will check procalcitonin level Urine Legionella antigen pending Continue empiric antibiotics Continue with IV fluid hydration Lactic acid is down from 3.4-0.6 Resume oral intake as tolerated When necessary antiemetics Protonix for GI prophylaxis Oncology was consulted Patient can follow up with her routine plate mounter on discharge We will continue to follow I have personally seen and examined the patient, performed the documentation and the assessment and plan as written. Number of minutes spent on the visit:20 Time with Patient: Greater than 30
[2022-06-10] MEDS: SODIUM CHLORIDE 0.9% 1,000 ML IV SCH ×2 (05:53→21:01)
--- NOTE | 2022-06-10 07:48 | XR ---
EXAMINATION TYPE: XR chest 1V DATE OF EXAM: 06/10/2022 COMPARISON: 06/09/2022 HISTORY: Fever TECHNIQUE: Single frontal view of the chest is obtained. FINDINGS: There is no is patchy opacity in the right lower lobe on current study. Patchy horizontal opacity left lung base. No pleural effusion or pneumothorax seen bilaterally. The cardiac silhouette size is stable and upper limits of normal. The osseous structures are intact. IMPRESSION: The right lower lobe infiltrate stable from prior exam.
[2022-06-10] MEDS: AZITHROMYCIN 500 MG TAB PO SCH (08:33)
[2022-06-10] MEDS: MULTIVITAMINS, THERA 1 EACH TAB PO SCH (08:33)
[2022-06-10] MEDS: PANTOPRAZOLE 40 MG/10 ML VIAL IVP SCH ×2 (08:33→21:01)
[2022-06-10] MEDS: DEXAMETHASONE SOD PHOSPHATE 10 MG/ML 1 ML VIAL IVP SCH (08:33)
[2022-06-10] MEDS: METOPROLOL TARTRATE 25 MG TAB PO SCH ×2 (08:33→21:00)
--- NOTE | 2022-06-10 15:16 | P.CONS ---
History of Present Illness - Reason for Consult Consult date: 06/10/22 Goals of care Requesting physician: Marlyn Acevedo - Chief Complaint Nausea, vomiting, and diarrhea, - History of Present Illness The patient is a 66-year-old female with a past medical history of hypothyroidism, stage IV lung cancer with metastasis to the brain. She pres ented to the emergency department on 06/09/22 for nausea, vomiting, and diarrhea for 3 days. She denies any abdominal pain or chest pain. She is a patient of Dr. Shaikh and Dr. Lin and is currently receiving radiation and is on oral chemotherapy. The patient presented to her primary care provider back in March for dizziness, which resulted in the neurological workup and brain MRI which was suspicious malignancy thought to be metastatic. Patient was then transferred down to [facility] for pulmonary workup where she reportedly had a lung biopsy which showed lung cancer. Patient has been receiving targeted therapy with Tafinilar and Mekinist. Patient reportedly has had 5 rounds of radiation to the brain managed by Dr. Shaikh. A follow-up brain MRI done yesterday morning showed an interval decrease in the pontine metastatic lesion with persistent central non-enhancement suggestive of necrosis, a left frontal area blooming artifact measuring up to 9 mm with some post contrast enhancement suggestive of cavernous hemiangioma and is thought to be less likely metastastic disease which was not a significant change from prior exam, and some nonspecific white matter changes likely related to small vessel ischemia. Most recent chest CT we have available was done on 02/19/2022 which showed areas of masslike consolidation affecting the right middle and right lower lobes. There were also 2 suspicious liver lesion seen. Review of Systems Constitutional: Reports chills, Reports fever Ears, nose, mouth and throat: Reports headache Cardiovascular: Denies chest pain, Denies shortness of breath Gastrointestinal: Reports nausea, Reports vomiting, Denies abdominal pain Past Medical History Past Medical History: Cancer, Hyperlipidemia, Thyroid Disorder Additional Past Medical History / Comment(s): previously 3 nodules on right side, Lung CA, Brain CA History of Any Multi-Drug Resistant Organisms: None Reported Past Surgical History: Hysterectomy Additional Past Surgical History / Comment(s): previous thyroidectomy - right side. Past Anesthesia/Blood Transfusion Reactions: No Reported Reaction Past Psychological History: No Psychological Hx Reported Smoking Status: Former smoker Past Alcohol Use History: Occasional Past Drug Use History: None Reported - Past Family History Father Family Medical History: Cancer, Hearing Disorder / Deafness Additional Family Medical History / Comment(s): lung Medications and Allergies Home Medications Medication Instructions Recorded Confirmed Type Multivitamin/Iron/Folic Acid 1 tab PO DAILY 04/03/15 06/09/22 History [Centrum Complete Multivit Tab] Aspirin 81 mg PO DAILY tab 12/26/20 06/09/22 Rx Atorvastatin [Lipitor] 80 mg PO HS #30 tab 12/26/20 06/09/22 Rx Metoprolol Tartrate [Lopressor] 25 mg PO BID 30 Days #60 tab 12/26/20 06/09/22 Rx lisinopriL [Zestril] 2.5 mg PO DAILY 30 Days #30 tab 12/26/20 06/09/22 Rx Cholecalciferol [Vitamin D3 (25 50 mcg PO DAILY 03/15/22 06/09/22 History Mcg = 1000 Iu)] Ezetimibe [Zetia] 10 mg PO HS 03/15/22 06/09/22 History Mekinist 2mg 2 mg PO DAILY@1800 06/09/22 06/09/22 History Prochlorperazine [Compazine] 10 mg PO Q6H PRN 06/09/22 06/09/22 History Tafinlar 75mg 150 mg PO Q12HR@0600,1800 06/09/22 06/09/22 History Allergies Allergy/AdvReac Type Severity Reaction Status Date / Time No Known Allergies Allergy Verified 06/09/22 15:06 Physical Exam Vitals: Vital Signs Temp Pulse Pulse Resp BP BP Pulse Ox 06/10/22 13:21 74 16 115/91 06/10/22 07:30 18 06/10/22 07:23 97.4 F L 75 18 122/79 97 06/10/22 06:09 72 16 113/82 97 06/10/22 03:00 98.2 F 69 16 104/67 98 06/10/22 02:12 68 18 104/67 96 06/10/22 01:00 69 16 100/75 97 06/09/22 22:00 66 16 97/65 98 06/09/22 20:00 68 16 90/60 98 06/09/22 18:00 98 F 69 16 88/60 95 06/09/22 15:59 80 16 90/50 94 L 06/09/22 14:57 98.1 F 80 20 90/50 92 L Intake and Output 06/09/22 06/10/22 06/10/22 22:59 06:59 14:59 Other: Weight 67.132 kg General: Well developed, well nourished. No acute distress. HEENT: Head is atraumatic, normocephalic. Sclera are clear. Mucus membranes moist. CV: Heart regular in rate and rhythm Lungs: Respirations even and nonlabored. No accessory muscle use. Abdomen/GI: Soft, nondistended, nontender. Musculoskeletal/ Extremities: No joint deformity or swelling. No contractures or gross atrophy. + generalized weakness Skin: Warm and dry and flushed, no rashes Neurologic: Awake, alert and oriented times 3. CN II-XII grossly intact. No focal deficits. Psychiatric: Appropriate mood and affect. Results CBC & Chem 7: 06/09/22 10:39 06/09/22 10:39 Labs: Abnormal Lab Results - Last 24 Hours (Table) 06/09/22 06/09/22 06/09/22 Range/Units 10:38 10:39 15:53 Plasma Lactic Acid Sarmad 0.6 L (0.7-2.0) mmol/L Cortisol 41.4 H (3.1-22.4) ug/dL Urine Appearance Cloudy H (Clear) Urine Protein 2+ H (Negative) Urine Blood Trace H (Negative) Urine WBC 6 H (0-5) /hpf Amorphous Sediment Moderate H (None) /hpf Urine Mucus Few H (None) /hpf Chest x-ray: report reviewed Assessment and Plan Assessment: Social * Occupation - retired press worker helper * Marital status - to [place], for 44 years * Children/grandchildren - 1 adult daughter * Residence - house * Who do you reside with - and dog * ETOH - occasional * Tobacco - former smoker quit approximately 32 years ago * Illicit drugs - none reported Spiritual/Cultural * A spiritual person - no Functional Assessment * Able to walk independently - yes * Assistive devices - no * Able to use the bathroom independently - yes * Continent - occasional incontinence * Require assistance bathing- no * Able to feed self - yes * Who prepares meals - patient * Able to clean house/do laundry - yes * Transportation - provides transportation currently * Able to shop - yes * Who manages medications - patient * Who manages finances - patient PPS score - 80% Psychological/Emotional * Dementia present - no * Insight and judgment - intact * Depression - no * Suicidal thoughts - no * Good support system - yes, family and friends * Patients goals - prolonged survival * Frequent hospitalizations - no * Desire to keep coming back to the hospital for treatment - yes Symptoms * Pain - 0/10, continue [place] when necessary * Fatigue - generalized fatigue * SOB - no * Insomnia - no * N/V - yes, continue Zofran and Compazine when necessary * Anxiety - no * Depression - no * Confusion - no * Agitation - no * Hallucinations - no * Appetite/weight loss - recent decreased appetite secondary to nausea * Dysphagia -no * Constipation - no, LBM today * Incontinence - occasional * Itch - no * Cough - occasional dry cough Plan: Summary/Goals - the patient was examined in the emergency department. Information regarding palliative care philosophies and services provided. The patient's case was discussed with Dr. Lin. The patient is very independent. Her follow-up MRI shows her brain lesion has decreased in size. Unfortunately, she developed known pneumonia and gastritis secondary to her chemo therapy. Once the patient's pneumonia resolves she intends on continuing her treatment. The patient's goal is life prolongation. The patient patient is anxious to start driving again and regain some of her independence. At this time the patient does not feel as if she needs any type of home care or palliative care once discharged. Advanced Directives - none on file Code Status - full code Thank you for this consultation Angela Amador [facility] Palliative Care [facility] [id number] Email: [email or web address]
[2022-06-10 17:12] LABS: African American GFR (CKD) 106.7 (60.0-200.0); Albumin 2.8 g/dL (3.8-4.9); Albumin/Globulin Ratio 1.21 (1.60-3.17); Anion Gap 9.1 mmol/L (10.00-18.00); BUN/Creat Ratio 19.42 Ratio (12.00-20.00); Blood Urea Nitrogen 12.8 mg/dL (9.0-27.0); Calcium 8.5 mg/dL (8.7-10.3); Carbon Dioxide 23.1 mmol/L (20.0-27.5); Globulin 2.3 g/dL (1.6-3.3); Non-African American GFR(CKD) 92.1 (60.0-200.0); Potassium 4.6 mmol/L (3.5-5.5); Total Bilirubin 0.4 mg/dL (0.30-1.20); Total Protein 5.2 g/dL (6.2-8.2)
--- NOTE | 2022-06-10 21:02 | P.CONS ---
History of Present Illness - Reason for Consult Consult date: 06/10/22 NSCLC, fever Requesting physician: Marlyn Acevedo - Chief Complaint N,V,D - History of Present Illness Ms. 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 She initially followed with Dr. Velazquez of pulmonology for persistent cough which had developed over 2 to [address] chest 02/19/2022 noted focal masslike consolidation in the right middle lobe measuring 2.7 x 2.2 cm along with mass/masslike consolidation in the right lower lobe measuring 6.1 x 4.5 cm and a nodular area measuring 1.3 cm in the lateral part of the right lower lobe. PET/CT on 02/28/2022 done at [facility] revealed right middle and right lower lobe patchy consolidative changes with increased FDG avidity in the right lung base with an SUV of 5. This area me asured 2.6 x 2.1 cm. There were 2 hypodense areas in the right hepatic lobe of the liver near the dome, which were not FDG avid. There was FDG avidity in the left proximal humerus with an SUV of 4.3. She was due to have a brain MRI as part of staging concerning for lung cancer when she developed progressive ataxia with a right leaning gait as well as new onset dysarthria. She initially presented to [facility] and was subsequently transferred to [facility] for additional management. Brain MRI on 03/16/2022 showed a ring- enhancing central left paramedian pontine mass measuring 14.6 x 15.6 x 14.7 mm with significant surrounding edema involving the entire ewelina with extension into the middle cerebellar peduncles, increased signal intensity into the left medullary pyramid and the cervicomedullary junction. There was a deformity of the fourth ventricle without hydrocephalus. Cervical spine MRI on 03/16/2022 noted lateral masses of C1 that were hyperintense on T2 but not T1. These were not definitive for malignancy. An MRI of the abdomen on 03/16/2022 noted 3 hyper intense T2 signals in both hepatic lobes which were compatible with hemangiomas. She was initially placed on steroids per neurosurgery and eventually was discharged on 03/18/2022 for additional work-up outpatient. She had a flexible bronchoscopy with transbronchial FNA biopsy on 03/20/2022 of the 4R and 11 R lymph nodes which were negative for malignancy in the 4R lymph node, but was positive for metastatic adenocarcinoma in the 11 R lymph node. IHC was positive for TTF-1 and negative for p40. She has to ambulate with a walker, leans to the right, 10lb wt loss. NGS revealed a BRAF V600E mutation. She was discussed at tumor board. Started BRAF targeted therapy tafinlar/mekinist 04/23 and had been tolerating well. Pt presented to ER with c/o N,V,D, reports chills, shaking, denied overt fever, she has not been able to keep much down, she was feeling progressively weak and very tired. Admission VS 101.2F temp, hypotensive, CBC was unremarkable, LFTs elevated, lactic acid 3.4. When seen pt reports feeling better then on admit. Review of Systems 10 point ROS is neg except as stated in HPI Past Medical History Past Medical History: Cancer, Hyperlipidemia, Thyroid Disorder Additional Past Medical History / Comment(s): previously 3 nodules on right side, Lung CA, Brain CA History of Any Multi-Drug Resistant Organisms: None Reported Past Surgical History: Hysterectomy Additional Past Surgical History / Comment(s): previous thyroidectomy - right side. Past Anesthesia/Blood Transfusion Reactions: No Reported Reaction Past Psychological History: No Psychological Hx Reported Smoking Status: Former smoker Past Alcohol Use History: Occasional Past Drug Use History: None Reported - Past Family History Father Family Medical History: Cancer, Hearing Disorder / Deafness Additional Family Medical History / Comment(s): lung Medications and Allergies Home Medications Medication Instructions Recorded Confirmed Type Multivitamin/Iron/Folic Acid 1 tab PO DAILY 04/03/15 06/09/22 History [Centrum Complete Multivit Tab] Aspirin 81 mg PO DAILY tab 12/26/20 06/09/22 Rx Atorvastatin [Lipitor] 80 mg PO HS #30 tab 12/26/20 06/09/22 Rx Metoprolol Tartrate [Lopressor] 25 mg PO BID 30 Days #60 tab 12/26/20 06/09/22 Rx lisinopriL [Zestril] 2.5 mg PO DAILY 30 Days #30 tab 12/26/20 06/09/22 Rx Cholecalciferol [Vitamin D3 (25 50 mcg PO DAILY 03/15/22 06/09/22 History Mcg = 1000 Iu)] Ezetimibe [Zetia] 10 mg PO HS 03/15/22 06/09/22 History Mekinist 2mg 2 mg PO DAILY@1800 06/09/22 06/09/22 History Prochlorperazine [Compazine] 10 mg PO Q6H PRN 06/09/22 06/09/22 History Tafinlar 75mg 150 mg PO Q12HR@0600,1800 06/09/22 06/09/22 History Allergies Allergy/AdvReac Type Severity Reaction Status Date / Time No Known Allergies Allergy Verified 06/09/22 15:06 Physical Exam Vitals: Vital Signs Temp Pulse Resp BP Pulse Ox 06/10/22 07:30 18 06/10/22 07:23 97.4 F L 75 18 122/79 97 06/10/22 06:09 72 16 113/82 97 06/10/22 03:00 98.2 F 69 16 104/67 98 06/10/22 02:12 68 18 104/67 96 06/10/22 01:00 69 16 100/75 97 06/09/22 22:00 66 16 97/65 98 06/09/22 20:00 68 16 90/60 98 06/09/22 18:00 98 F 69 16 88/60 95 06/09/22 15:59 80 16 90/50 94 L 06/09/22 14:57 98.1 F 80 20 90/50 92 L 06/09/22 13:35 89 16 92/50 98 06/09/22 13:00 90 20 74/45 91 L 06/09/22 12:00 78 20 80/49 98 06/09/22 10:26 101.2 F H 06/09/22 09:51 99.1 F 88 24 99/66 96 - Constitutional General appearance: average body habitus, cooperative, no acute distress - EENT Eyes: anicteric sclerae, EOMI ENT: hearing grossly normal - Neck Neck: no lymphadenopathy - Respiratory Respiratory: bilateral: CTA - Cardiovascular Rhythm: regular Heart sounds: normal: S1, S2 Abnormal Heart Sounds: no systolic murmur, no diastolic murmur, no rub, no S3 Gallop, no S4 Gallop, no click, no other leg Peripheral Edema: bilateral: None - Gastrointestinal General gastrointestinal: no absent bowel sounds, no decreased bowel sounds, no distended, no hepatomegaly, no hyperactive bowel sounds, normal bowel sounds, no organomegaly, no rigid, no scaphoid, soft, no splenomegaly, no tenderness, no umbilical hernia, no ventral hernia - Integumentary Integumentary: normal - Neurologic Neurologic: CNII-XII intact - Musculoskeletal Musculoskeletal: strength equal bilaterally - Psychiatric Psychiatric: A&O x's 3, appropriate affect, intact judgment & insight Results CBC & Chem 7: 06/09/22 10:39 06/10/22 07:35 Labs: Abnormal Lab Results - Last 24 Hours (Table) 06/09/22 06/09/22 06/09/22 Range/Units 10:38 10:39 10:39 RDW 21.0 H (11.5-15.5) % Lymphocytes # 0.4 L (1.0-4.8) k/uL Sodium 133 L (137-145) mmol/L BUN 22 H (7-17) mg/dL Glucose 132 H (74-99) mg/dL Plasma Lactic Acid Sarmad (0.7-2.0) mmol/L Total Bilirubin 1.5 H (0.2-1.3) mg/dL AST 219 H (14-36) U/L ALT 73 H (4-34) U/L Alkaline Phosphatase 157 H (38-126) U/L Albumin 3.3 L (3.5-5.0) g/dL Cortisol (3.1-22.4) ug/dL Urine Appearance Cloudy H (Clear) Urine Protein 2+ H (Negative) Urine Blood Trace H (Negative) Urine WBC 6 H (0-5) /hpf Amorphous Sediment Moderate H (None) /hpf Urine Mucus Few H (None) /hpf 06/09/22 06/09/22 06/09/22 Range/Units 10:39 10:40 15:53 RDW (11.5-15.5) % Lymphocytes # (1.0-4.8) k/uL Sodium (137-145) mmol/L BUN (7-17) mg/dL Glucose (74-99) mg/dL Plasma Lactic Acid Sarmad 3.4 H* 0.6 L (0.7-2.0) mmol/L Total Bilirubin (0.2-1.3) mg/dL AST (14-36) U/L ALT (4-34) U/L Alkaline Phosphatase (38-126) U/L Albumin (3.5-5.0) g/dL Cortisol 41.4 H (3.1-22.4) ug/dL Urine Appearance (Clear) Urine Protein (Negative) Urine Blood (Negative) Urine WBC (0-5) /hpf Amorphous Sediment (None) /hpf Urine Mucus (None) /hpf Chest x-ray: report reviewed MRI - head: report reviewed Assessment and Plan (1) Pneumonia Current Visit: Yes Status: Acute Priority: High Code(s): J18.9 - PNEUMONIA, UNSPECIFIED ORGANISM SNOMED Code(s): 482174985 (2) N&V (nausea and vomiting) Current Visit: Yes Status: Acute Priority: High Code(s): R11.2 - NAUSEA WI TH VOMITING, UNSPECIFIED SNOMED Code(s): 63497985 (3) Diarrhea Current Visit: Yes Status: Acute Priority: High Code(s): R19.7 - DIARRHEA, UNSPECIFIED SNOMED Code(s): 96848049 (4) Lung cancer Current Visit: Yes Status: Acute Priority: High Code(s): C34.90 - MALIGNANT NEOPLASM OF UNSP PART OF UNSP BRONCHUS OR LUNG SNOMED Code(s): 618896208 Plan: Fever, hypotension -flu and covid testing negative -pancultures pending -antibiotics for possible RLL pneumonia, infiltrates seen on CXR -BP improved post NS bolus N,V,D -likely 2/2 infection, supportive meds ordered BRAF mutated NSCLC -targeted therapy with tafinlar and mekinist -hold treatment for now until current acute condition is resolved -pt had a f/u MRI of the brain yesterday. Report reviewed-decrease in pontine metastatic lesion with persistent central non enhancement suggestive of necrosis, no new or enlarging lesions seen, lt frontal lobe 9mm artifact being reported as suggestive of cavernous hemangioma, unchanged from prior scan. Results reviewed with pt F/U and labs in AM attests: I seen and examined patient, performed H&P, developed impression and plan of care. Discussed with dictator. Agree with documentation, dictated as a scribe
--- NOTE | 2022-06-10 23:00 | P.CONS ---
History of Present Illness - Reason for Consult Consult date: 06/10/22 Pneumonia fever lung cancer patient Requesting physician: Marlyn Acevedo - Chief Complaint Vomiting and diarrhea x few days - History of Present Illness Patient is a 66-year-old female with a past medical history significant for stage IV lung cancer with metastasis to the brain for which the patient has received radiation therapy and is currently on oral chemotherapy presenting to the ER for evaluation of nausea vomiting and diarrhea in this patient symptom has been getting worse for the last 3 days before presentation to the hospital with multiple episodes of vomiting and loose stools denies any blood or mucus in the stool. Denies having any abdominal pain patient denies having any chest pain or shortness of breath did have minimal cough but no sputum production patient presented to the hospital did have a fever of 101.2 degree for right patient was not hypoxic or need for supplemental oxygen patient did have normal white count kidney function was normal liver enzymes are elevated urine was relatively negative influenza RSV and COVID testing was negative patient did have a chest x-ray patchy left basilar atelectasis more suspicious right lower lobe acute infiltrate repeat chest x-ray this morning right lower lobe infiltrate stable from prior exam with concern for possible pneumonia patient was started on Rocephin and Zithromax infectious disease was consulted for further management of antibiotic therapy Review of Systems Positive point has been mentioned in the HPI rest of the systems are negative Past Medical History Past Medical History: Cancer, Hyperlipidemia, Thyroid Disorder Additional Past Medical History / Comment(s): previously 3 nodules on right side, Lung CA, Brain CA History of Any Multi-Drug Resistant Organisms: None Reported Past Surgical History: Hysterectomy Additional Past Surgical History / Comment(s): previous thyroidectomy - right side. Past Anesthesia/Blood Transfusion Reactions: No Reported Reaction Past Psychological History: No Psychological Hx Reported Smoking Status: Former smoker Past Alcohol Use History: Occasional Past Drug Use History: None Reported - Past Family History Father Family Medical History: Cancer, Hearing Disorder / Deafness Additional Family Medical History / Comment(s): lung Medications and Allergies Home Medications Medication Instructions Recorded Confirmed Type Multivitamin/Iron/Folic Acid 1 tab PO DAILY 04/03/15 06/09/22 History [Centrum Complete Multivit Tab] Aspirin 81 mg PO DAILY tab 12/26/20 06/09/22 Rx Atorvastatin [Lipitor] 80 mg PO HS #30 tab 12/26/20 06/09/22 Rx Metoprolol Tartrate [Lopressor] 25 mg PO BID 30 Days #60 tab 12/26/20 06/09/22 Rx lisinopriL [Zestril] 2.5 mg PO DAILY 30 Days #30 tab 12/26/20 06/09/22 Rx Cholecalciferol [Vitamin D3 (25 50 mcg PO DAILY 03/15/22 06/09/22 History Mcg = 1000 Iu)] Ezetimibe [Zetia] 10 mg PO HS 03/15/22 06/09/22 History Mekinist 2mg 2 mg PO DAILY@1800 06/09/22 06/09/22 History Prochlorperazine [Compazine] 10 mg PO Q6H PRN 06/09/22 06/09/22 History Tafinlar 75mg 150 mg PO Q12HR@0600,1800 06/09/22 06/09/22 History Pantoprazole [Protonix] 40 mg PO AC-BID 30 Days #60 tab 06/11/22 Rx cefUROXime axetiL [Cefuroxime] 500 mg PO BID 5 Days #10 tab 06/11/22 Rx dexAMETHasone [Decadron] 6 mg PO DAILY #30 tablet 06/11/22 Rx Allergies Allergy/AdvReac Type Severity Reaction Status Date / Time No Known Allergies Allergy Verified 06/09/22 15:06 Physical Exam Vitals: Vital Signs Temp Pulse Resp BP Pulse Ox 06/10/22 07:30 18 06/10/22 07:23 97.4 F L 75 18 122/79 97 06/10/22 06:09 72 16 113/82 97 06/10/22 03:00 98.2 F 69 16 104/67 98 06/10/22 02:12 68 18 104/67 96 06/10/22 01:00 69 16 100/75 97 06/09/22 22:00 66 16 97/65 98 06/09/22 20:00 68 16 90/60 98 06/09/22 18:00 98 F 69 16 88/60 95 06/09/22 15:59 80 16 90/50 94 L 06/09/22 14:57 98.1 F 80 20 90/50 92 L 06/09/22 13:35 89 16 92/50 98 06/09/22 13:00 90 20 74/45 91 L 06/09/22 12:00 78 20 80/49 98 Intake and Output 06/09/22 06/10/22 06/10/22 22:59 06:59 14:59 Other: Weight 67.132 kg GENERAL DESCRIPTION: Elderly female lying in bed, no distress. No tachypnea or accessory muscle of respiration use. HEENT: Shows Pallor , no scleral icterus. Oral mucous membrane is dry. No pharyngeal erythema or thrush NECK: Trachea central, no thyromegaly. LUNGS: Unlabored breathing. Decreased breath sounds at the right base. HEART: S1, S2, regular rate and rhythm. No loud murmur ABDOMEN: Soft, no tenderness , guarding or rigidity, no organomegaly EXTREMITIES: No edema of feet. SKIN: No rash, no masses palpable. NEUROLOGICAL: The patient is awake, alert, oriented x3, mood and affect normal. Results CBC & Chem 7: 06/11/22 06:57 06/11/22 06:57 Labs: Abnormal Lab Results - Last 24 Hours (Table) 06/09/22 06/09/22 06/09/22 Range/Units 10:38 10:39 10:40 Plasma Lactic Acid Sarmad 3.4 H* (0.7-2.0) mmol/L Cortisol 41.4 H (3.1-22.4) ug/dL Urine Appearance Cloudy H (Clear) Urine Protein 2+ H (Negative) Urine Blood Trace H (Negative) Urine WBC 6 H (0-5) /hpf Amorphous Sediment Moderate H (None) /hpf Urine Mucus Few H (None) /hpf 06/09/22 Range/Units 15:53 Plasma Lactic Acid Sarmad 0.6 L (0.7-2.0) mmol/L Cortisol (3.1-22.4) ug/dL Urine Appearance (Clear) Urine Protein (Negative) Urine Blood (Negative) Urine WBC (0-5) /hpf Amorphous Sediment (None) /hpf Urine Mucus (None) /hpf Assessment and Plan (1) Gastroenteritis Current Visit: Yes Status: Acute Code(s): K52.9 - NONINFECTIVE GASTROENTERITIS AND COLITIS, UNSPECIFIED SNOMED Code(s): 69901112 (2) Pneumonia Current Visit: Yes Status: Acute Priority: High Code(s): J18.9 - PNEUMONIA, UNSPECIFIED ORGANISM SNOMED Code(s): 250581492 Plan: 1patient was in the hospital with predominantly with GI symptoms of nausea vomiting and did have diarrhea no abdominal pain or any tenderness in this patient who do have a stage IV lung cancer with evidence of right lower lobe infiltrate concerning for possible pneumonia 2-we will check urine for Legionella antigen check sputum for Gram stain and culture check a CRP procalcitonin and stool culture 3-continue with Rocephin and Zithromax while waiting for the work-up to be completed We will follow on clinical condition and cultures to further adjust medication i f needed Thank you for this consultation we will follow the patient along with you Time with Patient: Greater than 30
--- NOTE | 2022-06-10 23:03 | PN ---
PROGRESS NOTE DATE OF SERVICE: 06/10/2022 SUBJECTIVE: This is a 66-year-old woman, who was admitted with right lower lobe pneumonia, also had some nausea, vomiting. No chest pain. No palpitations. No fever. OBJECTIVE: VITAL SIGNS: Pulse is 75, blood pressure 120/70, respirations 18. CHEST: A few scattered rhonchi and crackles. ABDOMEN: Soft. NERVOUS SYSTEM: Nonfocal. LABORATORY DATA: Reviewed. ASSESSMENT: 1. Right lower lobe pneumonia. 2. Nausea, vomiting, diarrhea, possible acute gastroenteritis. 3. Lung cancer with mets to the brain. 4. Abnormal labs, multiple. RECOMMENDATIONS AND DISCUSSION: Recommend to continue current medications. Continue symptomatic treatment. Repeat labs. Continue with antibiotics. Increase ambulation. Possible discharge in the 24 to 48 hours. Closely follow with Pulmonary. Further recommendations to follow. MMODL / IJN: [id number] /
[2022-06-11] MEDS ORDERED: PANTOPRAZOLE 40 MG TABLET PO SCH (07:30)
[2022-06-11 07:52] LABS: Anisocytosis Moderate; Basophils % (A) 0 %; Eosinophils # (A) 0.1 k/uL (0-0.7); Eosinophils % (A) 1 %; HCT 37.4 % (34.0-46.0); HGB 12.1 gm/dL (11.4-16.0); Lymphocytes # (A) 1.1 k/uL (1.0-4.8); Lymphocytes % (A) 14 %; MCH 28.3 pg (25.0-35.0); MCHC 32.3 g/dL (31.0-37.0); MCV 87.7 fL (80.0-100.0); Mean Platelet Volume 8.8; Microcytosis Slight; Monocytes # (A) 0.2 k/uL (0-1.0); Monocytes % (A) 3 %; Neutrophils % (A) 79 %; Platelet Count 243 k/uL (150-450); Poikilocytosis Slight; RBC 4.27 m/uL (3.80-5.40); RDW 21.5 % (11.5-15.5); WBC 7.6 k/uL (3.8-10.6)
[2022-06-11 08:05] VITALS: BP 130/84; PULSE 78; RESP 18; TEMP 97.5
[2022-06-11 08:06] LABS: ALT 48 U/L (4-34); AST 100 U/L (14-36); African American GFR (CKD) >90 (>60 ml/min/1.73 sqM); Albumin 2.3 g/dL (3.5-5.0); Albumin/Globulin Ratio 0.9; Alkaline Phosphatase 108 U/L (38-126); Anion Gap 4 mmol/L; Blood Urea Nitrogen 11 mg/dL (7-17); Carbon Dioxide 23 mmol/L (22-30); Chloride 113 mmol/L (98-107); Globulin 2.5 g/dL; Glucose 77 mg/dL (74-99); Non-African American GFR(CKD) >90 (>60 ml/min/1.73 sqM); Potassium 3.7 mmol/L (3.5-5.1); Sodium 140 mmol/L (137-145); Total Bilirubin 0.5 mg/dL (0.2-1.3); Total Protein 4.8 g/dL (6.3-8.2)
[2022-06-11] MEDS: AZITHROMYCIN 500 MG TAB PO SCH (09:00)
[2022-06-11] MEDS: DEXAMETHASONE SOD PHOSPHATE 10 MG/ML 1 ML VIAL IVP SCH (09:01)
[2022-06-11] MEDS: METOPROLOL TARTRATE 25 MG TAB PO SCH (09:02)
[2022-06-11] MEDS: MULTIVITAMINS, THERA 1 EACH TAB PO SCH (09:02)
--- NOTE | 2022-06-11 12:17 | P.PN ---
Subjective Progress Note Date: 06/11/22 I'm seeing this patient in new consultation today 06/10/2022 in regard to a known history of lung cancer and possible pneumonia. 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 Garima finch. Patient is already established with an oncologist Dr. Lin. Unfortunately, I do not have access to the patient's records at this time. Apparently, the patient presented to her primary care provider back in March for dizziness, which resulted in the neurological workup and brain MRI which was suspicious malignancy thought to be metastatic. Patient was then transferred down to [facility] for pulmonary workup where she reportedly had a lung biopsy which showed lung cancer. Patient has been receiving targeted therapy with Tafinilar and Mekinist. Patient reportedly has had 5 rounds of radiation to the brain managed by Dr. Shaikh. A follow-up brain MRI done yesterday morning showed an interval decrease in the pontine metastatic lesion with persistent central non- enhancement suggestive of necrosis, a left frontal area blooming artifact measuring up to 9 mm with some postcontrast enhancement suggestive of cavernous hemiangioma and is thought to be less likely metastastic disease which was not a significant change from prior exam, and some nonspecific white matter changes likely related to small vessel ischemia. Most recent chest CT we have available was done on 02/19/2022 which showed areas of masslike consolidation affecting the right middle and right lower lobes. There were also 2 suspicious liver lesion seen. Patient is currently lying in bed, on room air, in no acute distress. She reportedly came into the emergency room yesterday evening due to some persistent nausea, vomiting, and diarrhea for the last couple days. She has no pulmonary complaints. A chest x-ray done on arrival showed a right lower lobe infiltrate and/or atelectasis thought to be acute by the radiologist. Patient denies any shortness of breath, chest pain, cough, fever. Denies sick c ontacts. Negative for COVID-19 and influenza. CBC on arrival showed no leukocytosis with a WBC count of 6.4, hemoglobin 14.5, hematocrit 44.1, platelets 220,000. Patient's BMP on arrival showed a sodium 133, potassium 3.8, chloride 99, serum CO2 25, BUN 22, creatinine 0.81, glucose 132. Patient's lactic acid level was slightly elevated at 3.4 and is down to 0.6 after fluid resuscitation with 3 L normal saline. LFTs are mildly elevated. Blood pressure was a little soft on arrival to the ER, but is currently normotensive. Normal saline is infusing at 80 ML's per hour. Patient is being empirically covered with Rocephin and azithromycin. Vital signs are stable. The patient is seen today 06/11/2022 in follow-up on the regular medical floor. She is currently sitting up in bed. Awake and alert in no acute distress. Denies any worsening shortness of breath, cough or congestion. Feeling better today compared to yesterday. She is maintaining O2 saturations in the 90s on room air. She's been afebrile. Hemodynamically stable. Blood cultures reveal no growth. White count 7.6. Hemoglobin 12.1. Platelets 243. Sodium 140. Potassium 3.7. Bicarb 23. BUN 11. Creatinine 0.68. AST 100. ALT 48. Pro- calcitonin was greater than 100. Legionella screen was negative. She is co ntinued on ceftriaxone. Completed azithromycin. Remains on Decadron for her metastatic brain lesions. Normal saline at 60 ML's per hour. Objective - Vital Signs Vital signs: Vital Signs Temp 97.5 F L 06/11/22 07:55 Pulse 78 06/11/22 07:55 Resp 18 06/11/22 07:55 BP 130/84 06/11/22 07:55 Pulse Ox 99 06/11/22 07:55 FiO2 Intake & Output 06/10/22 06/11/22 06/11/22 18:59 06:59 18:59 Intake Total 590 Balance 590 Intake: Oral 590 Other: Voiding Method Toilet Toilet # Voids 3 # Bowel Movements 1 - Exam GENERAL EXAM: Alert, very pleasant 66-year-old female, on room air, comfortable in no apparent distress. HEAD: Normocephalic. EYES: Normal reaction of pupils, equal size. NOSE: Clear with pink turbinates. THROAT: No erythema or exudates. NECK: No masses, no JVD. CHEST: No chest wall deformity. LUNGS: Equal air entry with bibasilar crackles. CVS: S1 and S2 normal with no audible murmur, regular rhythm. ABDOMEN: No hepatosplenomegaly, normal bowel sounds, no guarding or rigidity. SPINE: No scoliosis or deformity SKIN: No rashes CENTRAL NERVOUS SYSTEM: No focal deficits, tone is normal in all 4 extremities. EXTREMITIES: There is no peripheral edema. No clubbing, no cyanosis. Peripheral pulses are intact. - Labs CBC & Chem 7: 06/11/22 06:57 06/11/22 06:57 Labs: Abnormal Lab Results - Last 24 Hours (Table) 06/10/22 06/10/22 06/11/22 Range/Units 07:35 07:35 06:57 RDW 21.5 H (11.5-15.5) % Chloride 110 H (96-109) mmol/L Anion Gap 9.10 L (10.00-18.00) mmol/L Calcium 8.5 L (8.7-10.3) mg/dL AST 129 H (13-35) U/L ALT 59 H (8-44) U/L Total Protein 5.2 L (6.2-8.2) g/dL Albumin 2.8 L (3.8-4.9) g/dL Albumin/Globulin Ratio 1.21 L (1.60-3.17) g/dL Procalcitonin >100.00 H (0.02-0.09) ng/mL 06/11/22 Range/Units 06:57 RDW (11.5-15.5) % Chloride 113 H (96-109) mmol/L Anion Gap (10.00-18.00) mmol/L Calcium 8.0 L (8.7-10.3) mg/dL AST 100 H (13-35) U/L ALT 48 H (8-44) U/L Total Protein 4.8 L (6.2-8.2) g/dL Albumin 2.3 L (3.8-4.9) g/dL Albumin/Globulin Ratio (1.60-3.17) g/dL Procalcitonin (0.02-0.09) ng/mL Microbiology - Last 24 Hours (Table) 06/09/22 15:20 Blood Culture - Preliminary Blood No Growth after 24 hours 06/09/22 15:10 Blood Culture - Preliminary Blood No Growth after 24 hours Assessment and Plan Assessment: Acute gastroenteritis with dehydration. Patient was fluid resuscitated with 3 L normal saline. Nausea, vomiting and diarrhea have slowed. Possible right-sided pneumonia. Chest x-ray showed a possibly acute right lower lobe infiltrate. Patient is clinically asymptomatic. On room air oxygen. History of stage IV lungs CA with metastasis to the brain and possibly liver. Workup was done at an outside facility area. Currently receiving treatment with Tafinlar and Mekinist. Patient reportedly has received 5 rounds of radiation to the brain. Ex-smoker, remote history of over 30 years ago Plan: The patient was seen and evaluated Labs and medications reviewed Patient is stable on room air Pro calcitonin greater than 100 We'll recheck pro calcitonin Legionella screen negative Completed azithromycin Continue ceftriaxone Follow-up chest x-ray in a.m. We will continue to follow I have personally seen and examined the patient, performed the documentation and the assessment and plan as written. Number of minutes spent on the visit: 10.
--- NOTE | 2022-06-11 14:32 | P.PN ---
Subjective Progress Note Date: 06/11/22 Principal diagnosis: Pneumonia Patient is a 66-year-old female with a past medical history significant for stage IV lung cancer with metastasis to the brain for which the patient has received radiation therapy and is currently on oral chemotherapy presenting to the ER for evaluation of nausea vomiting and diarrhea , patient was noted to be febrile with a chest x-ray showing right lower lobe and if it is concerning for possible pneumonia. . On today's evaluation that is 06/11/2022, the patient is afebrile the patient is currently breathing comfortably on room air the patient denies having any further nausea no vomiting no abdominal pain and no diarrhea patient denies any chest pain did have minimal cough no sputum production Objective - Vital Signs Vital signs: Vital Signs Temp 97.5 F L 06/11/22 07:55 Pulse 78 06/11/22 07:55 Resp 18 06/11/22 07:55 BP 130/84 06/11/22 07:55 Pulse Ox 99 06/11/22 07:55 FiO2 Intake & Output 06/10/22 06/11/22 06/11/22 18:59 06:59 18:59 Intake Total 590 Balance 590 Intake: Oral 590 Other: Voiding Method Toilet Toilet # Voids 3 # Bowel Movements 1 - Exam GENERAL DESCRIPTION: An elderly female up in bed in no distress RESPIRATORY SYSTEM: Unlabored breathing , decreased breath sounds at bases HEART: S1 S2 regular rate and rhythm , ABDOMEN: Soft , no tenderness EXTREMITIES: No edema feet - Labs CBC & Chem 7: 06/11/22 06:57 06/11/22 06:57 Labs: Abnormal Lab Results - Last 24 Hours (Table) 06/10/22 06/10/22 06/11/22 Range/Units 07:35 07:35 06:57 RDW 21.5 H (11.5-15.5) % Chloride 110 H (96-109) mmol/L Anion Gap 9.10 L (10.00-18.00) mmol/L Calcium 8.5 L (8.7-10.3) mg/dL AST 129 H (13-35) U/L ALT 59 H (8-44) U/L Total Protein 5.2 L (6.2-8.2) g/dL Albumin 2.8 L (3.8-4.9) g/dL Albumin/Globulin Ratio 1.21 L (1.60-3.17) g/dL Procalcitonin >100.00 H (0.02-0.09) ng/mL 06/11/22 Range/Units 06:57 RDW (11.5-15.5) % Chloride 113 H (96-109) mmol/L Anion Gap (10.00-18.00) mmol/L Calcium 8.0 L (8.7-10.3) mg/dL AST 100 H (13-35) U/L ALT 48 H (8-44) U/L Total Protein 4.8 L (6.2-8.2) g/dL Albumin 2.3 L (3.8-4.9) g/dL Albumin/Globulin Ratio (1.60-3.17) g/dL Procalcitonin (0.02-0.09) ng/mL Microbiology - Last 24 Hours (Table) 06/09/22 15:20 Blood Culture - Preliminary Blood No Growth after 24 hours 06/09/22 15:10 Blood Culture - Preliminary Blood No Growth after 24 hours Assessment and Plan (1) Pneumonia Current Visit: Yes Status: Acute Priority: High Code(s): J18.9 - PNEUMONIA, UNSPECIFIED ORGANISM SNOMED Code(s): 787773197 Plan: 1patient was in the hospital with predominantly with GI symptoms of nausea vomiting and did have diarrhea no abdominal pain or any tenderness in this patient who do have a stage IV lung cancer with evidence of right lower lobe infiltrate concerning for possible pneumonia 2-patient did have a negative urine Legionella antigen, sputum for Gram stain and culture has not been collected, patient did have elevated CRP and procalcitonin of more than 100 3-patient seemed to have shown clinical improvement and will continue with Rocephin and Zithromax, patient however has been insisting on going home and if that's the case may consider short course of oral Ceftin on discharge discussed with the [employer] for admitting team Time with Patient: Less than 30
--- NOTE | 2022-06-14 06:35 | P.DS ---
Providers Date of admission: 06/09/22 14:04 Expected date of discharge: 06/11/22 Attending physician: Nigel Alfaro Consults: 06/09/22 14:02 Consult to Palliative Care Routine Consulting Provider: Angela Amador Consult Reason/Comments: goals of care Do you want consulting provider notified?: Already Contacted 06/09/22 14:49 Consult Physician Urgent Consulting Provider: Jagdish Jara Consult Reason/Comments: Pneumonia, lung cancer pt Do you want consulting provider notified?: Yes Consult Physician Urgent Consulting Provider: Sheila Barajas Consult Reason/Comments: Pneumonia, fever, lung cancer patient Do you want consulting provider notified?: Yes 06/09/22 14:51 Consult Physician Urgent Consulting Provider: Alexi Verdugo Consult Reason/Comments: Cancer patient, fever, pneumonia Do you want consulting provider notified?: Yes Primary care physician: [facility] Course: Final diagnosis Right lower lobe pneumonia Nausea, vomiting, diarrhea, possible acute gastritis Lung cancer with metastases to the brain Electrolyte abnormalities GI prophylaxis DVT prophylaxis Full code Discharge disposition Patient is being discharged in a stable condition with guarded prognosis to home. Patient will follow-up with Dr. roach along with radiation oncology Dr. Shaikh and her nurse practitioner she follows with Becka Griggs in the outpatient setting upon discharge. Patient is to continue with a short course of oral Ceftin on discharge. Total time taken is greater than 35 minutes. Hospital course This is a 66-year-old female who was recently admitted with some nausea vomiting diarrhea with concerns of right lower lobe pneumonia being closely monitored. Patient does follow with Dr. roach in the outpatient setting along with radiation oncology and will continue to so. Patient was evaluated by infectious disease maintained on ceftriaxone along with Zithromax and abdomen about going home and patient will continue on a short course of oral Ceftin with close outpatient follow-up. Patient has been cleared by consultations for discharge. Please refer to auscultation no for further HPI. Currently no reports of chest pain, shortness of breath, or palpitations. Patient is afebrile. No reports of nausea or vomiting and patient is tolerating diet. Patient will be discharged home today. Guarded prognosis. Physical exam: Gen: This is a 66-year-old female who is awake, alert and oriented 3, thin built, well-nourished HEENT: Head is atraumatic, normocephalic. Pupils equal, round. Sclerae is anicteric. NECK: Supple. No JVD. No lymphadenopathy. No thyromegaly. LUNGS: Diminished breath sounds bilaterally with No wheezes , some scattered rhonchi. No intercostal retractions. HEART: Regular rate and rhythm. No murmur. ABDOMEN: Soft. Bowel sounds are present. No masses. No tenderness. EXTREMITIES: No pedal edema. No calf tenderness. NEUROLOGICAL: Patient is awake, alert and oriented x3. Cranial nerves 2 through 12 are grossly intact. Please refer to medication reconciliation sheet for a list of medications. The impression and plan of care has been dictated by Eileen Adnerson, Nurse Practitioner as directed. Dr. Dominic MD I have performed a history and examination and MDM of this patient, discussed the same with the dictator, and agree with the dictator's assessment and plan as written ,documented as a scribe. Based on total visit time, I have performed more than 50% of the visit. Patient Condition at Discharge: Fair Plan - Discharge Summary Discharge Rx Participant: No New Discharge Prescriptions: New Pantoprazole [Protonix] 40 mg PO AC-BID 30 Days #60 tab cefUROXime axetiL [Cefuroxime] 500 mg PO BID 5 Days #10 tab dexAMETHasone [Decadron] 6 mg PO DAILY #30 tablet Continue Multivitamin/Iron/Folic Acid [Centrum Complete Multivit Tab] 1 tab PO DAILY Aspirin 81 mg PO DAILY tab Metoprolol Tartrate [Lopressor] 25 mg PO BID 30 Days #60 tab lisinopriL [Zestril] 2.5 mg PO DAILY 30 Days #30 tab Cholecalciferol [Vitamin D3 (25 Mcg = 1000 Iu)] 50 mcg PO DAILY Ezetimibe [Zetia] 10 mg PO HS Tafinlar 75mg 150 mg PO Q12HR@0600,1800 Prochlorperazine [Compazine] 10 mg PO Q6H PRN PRN Reason: Nausea Atorvastatin [Lipitor] 80 mg PO HS #30 tab Mekinist 2mg 2 mg PO DAILY@1800 Discharge Medication List Multivitamin/Iron/Folic Acid [Centrum Complete Multivit Tab] 1 tab PO DAILY 04/03/15 [History] Aspirin 81 mg PO DAILY tab 12/26/20 [Rx] Atorvastatin [Lipitor] 80 mg PO HS #30 tab 12/26/20 [Rx] Metoprolol Tartrate [Lopressor] 25 mg PO BID 30 Days #60 tab 12/26/20 [Rx] lisinopriL [Zestril] 2.5 mg PO DAILY 30 Days #30 tab 12/26/20 [Rx] Cholecalciferol [Vitamin D3 (25 Mcg = 1000 Iu)] 50 mcg PO DAILY 03/15/22 [History] Ezetimibe [Zetia] 10 mg PO HS 03/15/22 [History] Mekinist 2mg 2 mg PO DAILY@1800 06/09/22 [History] Prochlorperazine [Compazine] 10 mg PO Q6H PRN 06/09/22 [History] Tafinlar 75mg 150 mg PO Q12HR@0600,1800 06/09/22 [History] Pantoprazole [Protonix] 40 mg PO AC-BID 30 Days #60 tab 06/11/22 [Rx] cefUROXime axetiL [Cefuroxime] 500 mg PO BID 5 Days #10 tab 06/11/22 [Rx] dexAMETHasone [Decadron] 6 mg PO DAILY #30 tablet 06/11/22 [Rx] Follow up Appointment(s)/Referral(s): Becka Griggs, JESSICA [REFERRING] - 1-2 days (The office was not available, please call and make a follow up appointment.) Jose Ramon Lin MD [STAFF PHYSICIAN] - 06/19/22 4:00 pm Ambulatory/Diagnostic Orders: Complete Blood Count w/diff [LAB.AMB] Time Frame: 3 Days, Location: None Selected Patient Instructions/Handouts: Cefuroxime (By mouth), Dexamethasone (By mouth), Pantoprazole (By mouth), Pneumonia (DC) Activity/Diet/Wound Care/Special Instructions: Please hold tafinlar/mekinist until reevaluated by Oncologist Dr. Naveed Lin- thanks! activity limited until follow up follow up with pcp on discharge follow up with oncology on discharge Discharge Disposition: HOME SELF-CARE
== END 2022-06-11 14:38 | disposition home or self-care (01) | DRG 194 ==
LOC: EC 09:47 → 5NMEDONC 14:04
PROVIDERS: ADMIT Hospitalist; ATTEND Hospitalist
DX: J18.9 Pneumonia, unspecified organism (principal); C34.90 Malignant neoplasm of unspecified part of unspecified bronchus or lung; Z20.822 Contact with and (suspected) exposure to COVID-19; C79.31 Secondary malignant neoplasm of brain; J98.11 Atelectasis; K52.9 Noninfective gastroenteritis and colitis, unspecified; Z87.891 Personal history of nicotine dependence; D18.03 Hemangioma of intra-abdominal structures; E89.0 Postprocedural hypothyroidism; E86.0 Dehydration; Z85.118 Personal history of other malignant neoplasm of bronchus and lung; Z90.710 Acquired absence of both cervix and uterus; E78.5 Hyperlipidemia, unspecified; I10 Essential (primary) hypertension; Z79.82 Long term (current) use of aspirin; Z79.899 Other long term (current) drug therapy; Z85.841 Personal history of malignant neoplasm of brain; Z92.3 Personal history of irradiation; Z79.890 Hormone replacement therapy
CPT/HCPCS: 36415; 71045; 71046; 80053; 81001; 82150; 82533; 83605; 83690; 84145; 85025; 87040; 87449; 87502; 87635; 96361; 96365; 96366; 96367; 96368; 96375; 96376; 99285

== ENCOUNTER → 2022-06-09 | Outpatient (CLI) | payer MEDICARE ==
--- NOTE | 2022-06-09 15:04 | MR ---
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 The patient was then given intravenous contrast and multi planar, T1 fat-saturation images wer e obtained. IV Contrast: 6.5 cc Gadavist FINDINGS: Motion artifact limits the postcontrast evaluation. High T2 signal within the central ewelina corresponding with some blooming artifact suggestive of microh emorrhage and some peripheral enhancement. This area measures 10 x 8 x 7 mm, previously 17 x 16 x 17 mm. No new lesions are identified. There remains central nonenhancing present. Area of enhancement in left frontal lobe with blooming artifact on susceptibility weighted imaging me asuring 9 mm is similar to prior. The the remainder of the grijalva-white junctions, the ventricular system, basal cisterns appear unremark able. Diffusion-weighted imaging shows no evidence of restricted diffusion to suggest acute/subacute infarct. Intracranial arterial flow voids are maintained. Midline structures show no abnormality. Sca ttered foci of high T2 signal intensity are seen within the periventricular white matter. The bone marrow signal is within normal limits. Stable appearance of the bone marrow within the clivu s. Paranasal sinuses and mastoid air cells: Mucosal thickening of the maxillary sinuses right greater th an left. Visualized orbits: Orbital contents are intact. IMPRESSION: 1. Interval decrease in pontine metastatic lesion with persistent central nonenhancement suggestive of necrosis. Motion artifact limits post contrast evaluation, no new or enlarging lesions identified. 2. Stable appearance of the clivus bone marrow. No suspicious lesion definitively visualized. 3. Left frontal lobe area of blooming artifact measuring up to 9 mm with some postcontrast enhanceme nt suggestive of cavernous hemangioma and less likely metastatic disease, not significantly changed f rom prior. 4. Nonspecific white matter changes, likely related to small vessel ischemic disease
== END | disposition home or self-care (01) ==
LOC: RADMRIMAIN 08:01
PROVIDERS: ATTEND Radiology Radiation Oncology
DX: C79.31 Secondary malignant neoplasm of brain (principal); C34.31 Malignant neoplasm of lower lobe, right bronchus or lung; R90.82 White matter disease, unspecified
CPT/HCPCS: 70553; A9585

== ENCOUNTER → 2022-06-13 | Outpatient (CLI) | payer MEDICARE ==
[2022-06-13 12:22] LABS: Anisocytosis Moderate; Basophils % (A) 0 %; Eosinophils # (A) 0.1 k/uL (0-0.7); Eosinophils % (A) 1 %; HGB 12.9 gm/dL (11.4-16.0); Hypochromasia Slight; Lymphocytes % (A) 11 %; MCH 28.6 pg (25.0-35.0); MCHC 31.5 g/dL (31.0-37.0); MCV 90.6 fL (80.0-100.0); Mean Platelet Volume 8.2; Monocytes # (A) 0.3 k/uL (0-1.0); Monocytes % (A) 3 %; Neutrophils # (A) 7.8 k/uL (1.3-7.7); Neutrophils % (A) 83 %; Platelet Count 291 k/uL (150-450); Poikilocytosis Slight; RBC 4.53 m/uL (3.80-5.40); RDW 20.7 % (11.5-15.5); WBC 9.4 k/uL (3.8-10.6)
[2022-06-13 12:34] LABS: African American GFR (CKD) >90 (>60 ml/min/1.73 sqM); Anion Gap 3 mmol/L; Blood Urea Nitrogen 15 mg/dL (7-17); Calcium 8.9 mg/dL (8.4-10.2); Carbon Dioxide 31 mmol/L (22-30); Chloride 107 mmol/L (98-107); Glucose 132 mg/dL (74-99); Magnesium 1.8 mg/dL (1.6-2.3); Non-African American GFR(CKD) >90 (>60 ml/min/1.73 sqM); Potassium 4.2 mmol/L (3.5-5.1); Sodium 141 mmol/L (137-145)
== END | disposition home or self-care (01) ==
LOC: LAB 10:20
PROVIDERS: ATTEND Internal Medicine
DX: D64.9 Anemia, unspecified (principal); J18.9 Pneumonia, unspecified organism
CPT/HCPCS: 80048; 83735; 85025

== ENCOUNTER → 2022-07-07 | Outpatient (CLI) | payer MEDICARE ==
[2022-07-07 10:11] LABS: African American GFR (CKD) >90 (>60 ml/min/1.73 sqM); Blood Urea Nitrogen 10 mg/dL (7-17); Non-African American GFR(CKD) >90 (>60 ml/min/1.73 sqM)
--- NOTE | 2022-07-07 11:16 | CT ---
EXAMINATION TYPE: CT ChestAbdPelvis w con DATE OF EXAM: 07/07/2022 COMPARISON: Most recent chest CT February 19, 2022 and outside PET/CT February 28, 2022 images only. HISTORY: Lung cancer CT DLP: 637.4 mGycm. Automated Exposure Control for Dose Reduction was Utilized. CONTRAST: CT scan of the thorax, abdomen and pelvis is performed with IV Contrast, patient injected with 100 mL of Isovue 300. FINDINGS: LUNGS: Marked improvement in the right lower lobe mass or neoplasm now measuring roughly 1.9 x 1.5 cm axial image 45 versus approximate 6.2 x 4.9 cm prior study image 37. Mild linear scarring and/or ate lectasis at this level is also redemonstrated. Resolved right middle lobe masslike consolidation is n oted. No right-sided pleural effusion. No pneumothorax seen bilaterally. No new nodules or masses corby aterally. Incidental 5 mm calcified nodule is benign granuloma right mid lung anteriorly axial image 31 is redemonstrated. MEDIASTINUM: There are no greater than 1 cm hilar or mediastinal lymph nodes. No cardiomegaly or pe ricardial effusion is seen. LIVER/GB: Liver is diffusely hypodense. There is focal 2.5 cm irregular hypodense lesion right hepati c lobe axial image 49 that is stable or slightly smaller from prior study, it does not show abnormal increased uptake on recent PET. Stones small stones in contracted gallbladder redemonstrated. PANCREAS: No significant abnormality is seen. SPLEEN: Mild splenomegaly on current study redemonstrated.. ADRENALS: No significant abnormality is seen. KIDNEYS: Benign-appearing thin-walled cyst upper pole of both kidneys is seen.. BOWEL: Oral contrast does not reach level of terminal ileum. No suspicious small or large bowel dilat ation. Incidental normal-appearing appendix. GENITAL ORGANS: Uterus is surgically absent. Scattered small bilateral pelvic phleboliths are seen. LYMPH NODES: No greater than 1cm abdominal or pelvic lymph nodes are appreciated. OSSEOUS STRUCTURES: Moderate disc space narrowing with vacuum disc phenomenon at L4-L5 level. OTHER: No significant additional abnormality is seen. IMPRESSION: 1. Significant partial positive treatment response to the right lower lobe mass or neoplasm. Nonspec ific liver lesion is favored not metastatic lesion given lack of hypermetabolic uptake on PET/CT. No new suspicious masses or adenopathy seen.
== END | disposition home or self-care (01) ==
LOC: RADCTMAIN 08:54
PROVIDERS: ATTEND Internal Medicine
DX: C34.31 Malignant neoplasm of lower lobe, right bronchus or lung (principal); E78.5 Hyperlipidemia, unspecified
CPT/HCPCS: 82565; 84520; 71260; 74177; 36415; Q9967

== ENCOUNTER → 2022-09-05 | Outpatient (CLI) | payer MEDICARE ==
--- NOTE | 2022-09-07 14:22 | MR ---
EXAMINATION TYPE: MR brain wo/w con DATE OF EXAM: 09/05/2022 COMPARISON: 06/09/2022 HISTORY: Hx lung cancer, Evaluate for cancer, follow-up CONTRAST: Performed utilizing 7 mL intravenous Gadavist gadolinium contrast. TECHNIQUE: Multiplanar, multiecho imaging on a 3.0 Lindsey magnet is performed through the brain. Stud y is performed within 24 hours of arrival to the hospital. The craniovertebral junction is normal. The pituitary is normal. Within the brainstem there is hyperintensity on T2-weighted sequences. This area is hypointense on di ffusion-weighted imaging and nearly isointense T1-weighted sequences and hyperintense on inversion re covery. This is less distinct on the inversion recovery then comparison may reflect some increasing e joselyn. Following enhancement views reveal 1.4 cm is present. Previous measurement 0.8 x 1.0 cm. No additional suspicious areas of enhancement are evident. Diffusion-weighted imaging is performed. No abnormal hyperintensity is present to suggest an acute i ntracranial infarct or acute ischemic change. The lesion within the brainstem is hypointense on diffu ronal. Signal within the brain otherwise appears normal. Ventricles and sulci are appropriate for the patient age. IMPRESSIONS: 1. Enhancing lesion with additional ill-defined hyperintensity on T2-weighted sequences reflect some edema within the brainstem. This has enlarged from 0.8 x 0.9 cm to 1.3 cm in diameter.
== END | disposition home or self-care (01) ==
LOC: RADMRIMAIN 13:25
PROVIDERS: ATTEND Radiology Radiation Oncology
DX: C79.31 Secondary malignant neoplasm of brain (principal); R60.0 Localized edema
CPT/HCPCS: 70553; A9585

== ENCOUNTER → 2022-10-14 | Outpatient (CLI) | payer MEDICARE ==
--- NOTE | 2022-10-14 11:37 | CA ---
Transthoracic Echo Report Name: Ashley Babb Age: 67 Gender: F : 1955 Exam Date: 10/14/2022 09:26 Exam Location: [place] [facility] Ht (in): 66 Wt (lb): 145 Ordering Physician: Jose Ramon Lin MD Attending/Referring Phys: Truck Caterer Harriet Berger RDCS Procedure CPT: Indications: [id number] PREPROCEDURAL EXAMINATION Cardiac Hx: Technical Quality: Fair Contrast 1: Total Dose (mL): Contrast 2: Total Dose (mL): MEASUREMENTS (Male / Female) Normal Values 2D ECHO LV Diastolic Diameter PLAX 4.3 cm 4.2 - 5.9 / 3.9 - 5.3 cm LV Systolic Diameter PLAX 3.1 cm IVS Diastolic Thickness 1.3 cm 0.6 - 1.0 / 0.6 - 0.9 cm LVPW Diastolic Thickness 1.1 cm 0.6 - 1.0 / 0.6 - 0.9 cm LV Relative Wall Thickness 0.6 RV Internal Dim ED PLAX 3.3 cm LA Volume 49.7 cm??? 18 - 58 / 22 - 52 cm??? M-MODE Aortic Root Diameter MM 3.3 cm LA Systolic Diameter MM 3.2 cm LA Ao Ratio MM 1.0 AV Cusp Separation MM 2.2 cm DOPPLER AV Peak Velocity 136.6 cm/s AV Peak Gradient 7.5 mmHg AV Mean Velocity 94.4 cm/s AV Mean Gradient 4.0 mmHg AV Velocity Time Integral 26.9 cm LVOT Peak Velocity 108.3 cm/s LVOT Peak Gradient 4.7 mmHg LVOT Velocity Time Integral 22.7 cm MV Area PHT 4.8 cm??? Mitral E Point Velocity 71.3 cm/s Mitral A Point Velocity 66.8 cm/s Mitral E to A Ratio 1.1 MV Deceleration Time 157.2 ms MV E' Velocity 6.1 cm/s Mitral E to MV E' Ratio 11.7 TR Peak Velocity 230.1 cm/s TR Peak Gradient 21.2 mmHg Right Ventricular Systolic Press 26.2 mmHg FINDINGS Left Ventricle Mildly increased left ventricular wall thickness. Left ventricular cavity size normal. Normal left ventricular systolic function with no obvious regional wall motion abnormalities. Left ventricular ejection fraction is estimated at 55-60 %. Right Ventricle Normal right ventricular size. Right ventricular systolic pressure within normal limits. Right Atrium Normal right atrial size. Left Atrium Normal left atrial size. Mitral Valve Structurally normal mitral valve. Mitral valve thickened. Mild mitral annular calcification. Mild mitral regurgitation. Aortic Valve Trileaflet aortic valve. No aortic valve stenosis or regurgitation. Tricuspid Valve Structurally normal tricuspid valve. Mild tricuspid regurgitation. Pulmonic Valve Structurally normal pulmonic valve. Trace to mild pulmonic regurgitation. Pericardium No pericardial effusion. Aorta Normal size aortic root and proximal ascending aorta. CONCLUSIONS Normal LV size and systolic function. No significant abnormality on the Doppler exam. There is mild mitral and the calcification mild mitral regurgitation. No significant pulmonary hypertension. No pericardial effusion Previewed by: Dr. Antoinette Velazquez MD (Electronically Signed) Final Date: 14 October 2022 11:37
== END | disposition home or self-care (01) ==
LOC: RADECHMAIN 09:02
PROVIDERS: ATTEND Internal Medicine
DX: Z01.818 Encounter for other preprocedural examination (principal); C34.31 Malignant neoplasm of lower lobe, right bronchus or lung; D47.Z9 Other specified neoplasms of uncertain behavior of lymphoid, hematopoietic and related tissue; E78.5 Hyperlipidemia, unspecified
CPT/HCPCS: 93306

== ENCOUNTER → 2022-11-05 | Outpatient (CLI) | payer MEDICARE ==
--- NOTE | 2022-11-06 20:51 | MR ---
EXAMINATION TYPE: MR brain wo/w con DATE OF EXAM: 11/05/2022 9:25 PM CLINICAL INDICATION:Female, 67 years old with history of C79.31; Lung cancer secondary malignant neop lasm COMPARISON: 09/05/2022 and dating back to 03/16/2022. TECHNIQUE: Multi planar, multi sequence imaging was performed through the brain including: T1, T2, In version recovery, susceptibility weighted imaging and gradient echo imaging and Diffusion weighted im aging. The patient was then given intravenous contrast and multi planar, T1 fat-saturation images wer e obtained. IV Contrast: 7 cc Gadavist FINDINGS: Enhancing lesion within the brainstem now measuring 11 x 10, previously 12 x 12 mm the central portio n has some areas of nonenhancement on today's exam. In the anterior inferior left frontal lobe measur ing 7 x 5 mm similar prior dating back to 04/09/2022 this area within the left inferior frontal lobe de monstrates blooming artifact suggestive of capillary telangiectasia. Diffusion-weighted imaging shows no evidence of restricted diffusion to suggest acute/subacute infarct. Intracranial arterial flow vo ids are maintained. Midline structures show no abnormality. Few scattered foci of high T2 signal inte nsity are seen within the periventricular white matter. The susceptibility weighted images do not rev eal any evidence for micro-hemorrhage. The bone marrow signal is within normal limits. Paranasal sinuses and mastoid air cells: No significant paranasal sinus disease. Visualized orbits: Orbital contents are intact. IMPRESSION: 1. Interval decrease in size of the enhancing brainstem lesion. No new lesions identified. No evidenc e for acute/subacute infarct. 2. Nonspecific white matter changes, likely related to small vessel ischemic disease 3. 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
== END | disposition home or self-care (01) ==
LOC: RADMRIMAIN 21:15
PROVIDERS: ATTEND Radiology Radiation Oncology
DX: C79.31 Secondary malignant neoplasm of brain (principal); C78.00 Secondary malignant neoplasm of unspecified lung; C34.31 Malignant neoplasm of lower lobe, right bronchus or lung; R90.82 White matter disease, unspecified; Z15.89 Genetic susceptibility to other disease
CPT/HCPCS: 70553; A9585

== ENCOUNTER → 2022-12-11 | Outpatient (CLI) | payer MEDICARE ==
[2022-12-11 10:20] LABS: African American GFR (CKD) >90 (>60 ml/min/1.73 sqM); Blood Urea Nitrogen 20 mg/dL (7-17); Non-African American GFR(CKD) >90 (>60 ml/min/1.73 sqM)
--- NOTE | 2022-12-11 12:28 | CT ---
EXAMINATION TYPE: CT ChestAbdPelvis w con DATE OF EXAM: 12/11/2022 COMPARISON: 07/07/2022 HISTORY: Follow up for lung cancer. CT DLP: 952.1 mGycm Automated exposure control for dose reduction was used. CONTRAST: CT scan of the chest, abdomen and pelvis is performed with Oral Contrast and with IV Contrast, patien t injected with 100ml mL of Isovue 300. FINDINGS: LUNGS: 5 mm nodule in the right upper lobe on prior exam now measures 4 mm. Area of nodular consolida tion in the right lower lobe is stable measuring 2 x 1.5 cm. Additional areas of subsegmental consoli dation are most typical of atelectasis. There is a 4 mm right lower lobe subpleural nodule. No overt failure. No pneumothorax. MEDIASTINUM: Heart size normal. Moderate coronary artery calcification. Trace of pericardial fluid. A sean of normal caliber. No evidence of pleural effusion or pneumothorax. LIVER/GB: There is a 2.4 cm lesion within the liver which is stable. There is a smaller indeterminate 9 mm lesion in the left lobe of the liver stable. Cholelithiasis. PANCREAS: No significant abnormality is seen. SPLEEN: Spleen measures 13 cm borderline splenomegaly. ADRENALS: No significant abnormality is seen. KIDNEYS: Bilateral simple-appearing Bosniak classification 1 renal cysts with no hydronephrosis or ma sses. No evidence of obstruction. BOWEL: Mild diverticulosis. REPRODUCTIVE ORGANS: Correlate for prior hysterectomy LYMPH NODES: No greater than 1 cm abdominal or pelvic lymph nodes are appreciated. OSSEOUS STRUCTURES: Multilevel degenerative disc disease. Bilateral vacuum changes within the SI join ts and bilateral hip arthropathy. OTHER: Aorta normal caliber. IMPRESSION: 1. Stable appearing pulmonary nodules unchanged from prior exam. 2. Stable hepatic lesions unchanged from prior exam. 3. Cholelithiasis.
== END | disposition home or self-care (01) ==
LOC: RADCTMAIN 09:32
PROVIDERS: ATTEND Internal Medicine
DX: C34.31 Malignant neoplasm of lower lobe, right bronchus or lung (principal); D47.Z9 Other specified neoplasms of uncertain behavior of lymphoid, hematopoietic and related tissue; E78.5 Hyperlipidemia, unspecified; K80.20 Calculus of gallbladder without cholecystitis without obstruction; K76.89 Other specified diseases of liver; K76.9 Liver disease, unspecified; R91.8 Other nonspecific abnormal finding of lung field; Z71.3 Dietary counseling and surveillance
CPT/HCPCS: 82565; 84520; 71260; 74177; 36415; Q9967

== ENCOUNTER → 2023-01-13 | Outpatient (CLI) | payer MEDICARE ==
--- NOTE | 2023-01-14 07:10 | CA ---
Transthoracic Echo Report Name: Ashley Babb Age: 67 Gender: F : 1955 Exam Date: 01/13/2023 13:52 Exam Location: [place] [facility] Ht (in): 66 Wt (lb): 152 Ordering Physician: Jose Ramon Lin MD Attending/Referring Phys: Lime Vat Tender Doreen Brush [facility] Procedure CPT: Indications: C34.31 lung ca Cardiac Hx: Technical Quality: Technically difficult study Contrast 1: Total Dose (mL): Contrast 2: Total Dose (mL): MEASUREMENTS (Male / Female) Normal Values 2D ECHO LV Diastolic Diameter PLAX 4.6 cm 4.2 - 5.9 / 3.9 - 5.3 cm LV Systolic Diameter PLAX 3.9 cm IVS Diastolic Thickness 0.9 cm 0.6 - 1.0 / 0.6 - 0.9 cm LVPW Diastolic Thickness 0.9 cm 0.6 - 1.0 / 0.6 - 0.9 cm LV Relative Wall Thickness 0.4 LV Diastolic Volume MOD BP 63.5 cm??? 67 - 155 / 56 - 104 cm??? LV Systolic Volume MOD BP 33.0 cm??? 22 - 58 / 19 - 49 cm??? LV Ejection Fraction MOD BP 48.0 % >= 55 % LV Cardiac Index MOD BP 1811.4 cm???/min???m??? LV Diastolic Volume MOD 4C 74.8 cm??? LV Systolic Volume MOD 4C 41.4 cm??? LV Ejection Fraction MOD 4C 44.6 % LV Cardiac Index MOD 4C 1982.9 cm???/min???m??? LV Diastolic Length 4C 6.5 cm LV Systolic Length 4C 5.4 cm LV Diastolic Volume MOD 2C 49.6 cm??? LV Systolic Volume MOD 2C 26.0 cm??? LV Ejection Fraction MOD 2C 47.6 % LV Cardiac Index MOD 2C 1403.6 cm???/min???m??? LV Diastolic Length 2C 6.0 cm LV Systolic Length 2C 5.3 cm Ascending Aorta Diameter 3.9 cm M-MODE Aortic Root Diameter MM 2.6 cm LA Systolic Diameter MM 3.3 cm LA Ao Ratio MM 1.3 AV Cusp Separation MM 2.2 cm DOPPLER AV Peak Velocity 134.4 cm/s AV Peak Gradient 7.2 mmHg AV Mean Velocity 85.0 cm/s AV Mean Gradient 3.4 mmHg AV Velocity Time Integral 21.2 cm LVOT Peak Velocity 104.5 cm/s LVOT Peak Gradient 4.4 mmHg LVOT Velocity Time Integral 17.2 cm Mitral E Point Velocity 55.7 cm/s Mitral A Point Velocity 78.2 cm/s Mitral E to A Ratio 0.7 MV Deceleration Time 149.3 ms LV E' Lateral Velocity 9.8 cm/s Mitral E to LV E' Lateral Ratio 5.7 LV A' Septal Velocity 5.6 cm/s Right Atrial Pressure 3.0 mmHg FINDINGS Left Ventricle Left ventricular wall thickness normal. Left ventricular cavity size normal. Mildly reduced global left ventricular systolic function. Left ventricular ejection fraction is estimated at 45-50%. Mildly decreased left ventricular ejection fraction. Right Ventricle Upper normal right ventricular size. Right Atrium Normal right atrial size. Left Atrium Mild left atrial dilatation. Mitral Valve Mitral valve thickened. Mild mitral annular calcification. Trace mitral regurgitation. Aortic Valve Trileaflet aortic valve. No aortic valve stenosis or regurgitation. Tricuspid Valve Structurally normal tricuspid valve. No tricuspid regurgitation. Pulmonic Valve Structurally normal pulmonic valve. Trace pulmonic regurgitation. Pericardium No pericardial effusion. Aorta Normal size aortic root and mildly dilated proximal ascending aorta. CONCLUSIONS 1. Mild global hypokinesis with GLPS of -16%, worsened compared to October 2022 2. Trace mitral regurgitation Previewed by: Dr. Danny Cooney MD (Electronically Signed) Final Date: 14 January 2023 07:08
== END | disposition home or self-care (01) ==
LOC: RADECHMAIN 13:29
PROVIDERS: ATTEND Internal Medicine
DX: Z01.818 Encounter for other preprocedural examination (principal); C34.31 Malignant neoplasm of lower lobe, right bronchus or lung; I34.0 Nonrheumatic mitral (valve) insufficiency; D47.Z9 Other specified neoplasms of uncertain behavior of lymphoid, hematopoietic and related tissue; E78.5 Hyperlipidemia, unspecified; Z71.3 Dietary counseling and surveillance
CPT/HCPCS: 93306

== ENCOUNTER → 2023-02-13 | Outpatient (CLI) | payer MEDICARE ==
--- NOTE | 2023-02-13 11:46 | MR ---
EXAMINATION TYPE: MR brain wo/w con DATE OF EXAM: 02/13/2023 COMPARISON: 11/05/2022 HISTORY: Lung Ca TECHNIQUE: Multiplanar, multisequence images of the brain and brainstem is performed without and with IV contras t, utilizing 7 mL intravenous Gadavist . FINDINGS: Diffusion weighted images demonstrate no evidence of a recent infarct or other diffusion ab normality. There is no extra-axial fluid collection or significant white matter signal abnormality. The ventricular system and cisternal spaces are normal in size and appearance. The brain volume is age appropriate. Midline structures demonstrate normal morphology. The craniocervical junction appears within normal limits. Post contrast images demonstrate enhancing pontine lesion measuring 1.3 x 1.2 cm and previously measu ring 1.1 x 1.0 cm. There are multiple new subcentimeter lesion seen involving the cerebellum and bila teral cerebral hemispheres not seen on the prior exam compatible with progression of metastases.. The dural venous sinuses appear patent. The visualized sinuses are clear and the globes are intact. IMPRESSION: 1. There is interval slight increase in size of the pontine mass now measuring 1.3 x 1.2 cm and previ ously measuring 1.1 x 1.0 cm. 2. There is interval development of numerous subcentimeter lesions involving the cerebellum and bilat eral cerebral hemispheres compatible with progressive metastases.
== END | disposition home or self-care (01) ==
LOC: RADMRIMAIN 10:20
PROVIDERS: ATTEND Radiology Radiation Oncology
DX: C79.31 Secondary malignant neoplasm of brain (principal); G93.9 Disorder of brain, unspecified; C34.31 Malignant neoplasm of lower lobe, right bronchus or lung; R91.8 Other nonspecific abnormal finding of lung field
CPT/HCPCS: 70553; A9585

== ENCOUNTER → 2023-02-18 | Outpatient (CLI) | payer MEDICARE ==
--- NOTE | 2023-02-19 10:16 | CA ---
Transthoracic Echo Report Name: Ashley Babb Age: 67 Gender: F : 1955 Exam Date: 02/18/2023 14:02 Exam Location: [facility] Ht (in): 66 Wt (lb): 160 Ordering Physician: Jose Ramon Lin MD Attending/Referring Phys: Traffic Signal Repairer Rosanna Westfall RDCS Procedure CPT: Indications: Z01.818 Chemo exposure Cardiac Hx: Technical Quality: Good Contrast 1: Total Dose (mL): Contrast 2: Total Dose (mL): MEASUREMENTS (Male / Female) Normal Values 2D ECHO LV Diastolic Diameter PLAX 4.4 cm 4.2 - 5.9 / 3.9 - 5.3 cm LV Systolic Diameter PLAX 3.3 cm IVS Diastolic Thickness 1.1 cm 0.6 - 1.0 / 0.6 - 0.9 cm LVPW Diastolic Thickness 1.1 cm 0.6 - 1.0 / 0.6 - 0.9 cm LV Relative Wall Thickness 0.5 RV Internal Dim ED PLAX 3.4 cm LA Systolic Diameter LX 3.4 cm 3.0 - 4.0 / 2.7 - 3.8 cm LV Diastolic Volume MOD BP 71.6 cm??? 67 - 155 / 56 - 104 cm??? LV Systolic Volume MOD BP 33.5 cm??? - 58 / 19 - 49 cm??? LV Ejection Fraction MOD BP 53.3 % >= 55 % LV Cardiac Index MOD BP 1547.1 cm???/min???m??? LV Diastolic Volume MOD 4C 77.2 cm??? LV Systolic Volume MOD 4C 38.9 cm??? LV Ejection Fraction MOD 4C 49.5 % LV Cardiac Index MOD 4C 1548.5 cm???/min???m??? LV Diastolic Length 4C 6.7 cm LV Systolic Length 4C 6.0 cm LV Diastolic Volume MOD 2C 65.0 cm??? LV Systolic Volume MOD 2C 30.3 cm??? LV Ejection Fraction MOD 2C 53.4 % LV Cardiac Index MOD 2C 1406.5 cm???/min???m??? LV Diastolic Length 2C 6.9 cm LV Systolic Length 2C 5.9 cm LA Volume 67.9 cm??? 18 - 58 / 22 - 52 cm??? LA Volume Index 36.7 cm???/m??? 16 - 28 cm???/m??? M-MODE Aortic Root Diameter MM 3.1 cm MV E Point Septal Separation 1.0 cm AV Cusp Separation MM 2.2 cm DOPPLER AV Peak Velocity 140.9 cm/s AV Peak Gradient 7.9 mmHg MV Area PHT 4.4 cm??? Mitral E Point Velocity 89.3 cm/s Mitral A Point Velocity 82.9 cm/s Mitral E to A Ratio 1.1 MV Deceleration Time 171.4 ms MV E' Velocity 8.5 cm/s Mitral E to MV E' Ratio 10.5 TR Peak Velocity 225.3 cm/s TR Peak Gradient 20.3 mmHg Right Ventricular Systolic Press 25.3 mmHg FINDINGS Left Ventricle Left ventricular ejection fraction is estimated at 50-55 %. Left ventricular cavity size normal. Mildly increased septal wall thickness. Mildly increased posterior wall thickness. Mildly decreased left ventricular ejection fraction. Right Ventricle Mild right ventricular dilatation. Right ventricular systolic pressure within normal limits. Right ventricular systolic pressure estimated at 25 mm hg. Right Atrium Normal right atrial size. Left Atrium Mild left atrial dilatation Mitral Valve Mitral valve thickened. No mitral stenosis, regurgitation or prolapse. Aortic Valve Trileaflet aortic valve. No aortic valve stenosis or regurgitation. Tricuspid Valve Structurally normal tricuspid valve. Mild tricuspid regurgitation. Pulmonic Valve Structurally normal pulmonic valve. Mild pulmonic regurgitation. Pericardium No pericardial effusion. Aorta Normal size aortic root and proximal ascending aorta. CONCLUSIONS Left ventricular ejection fraction is estimated at 50-55 %. Mild concentric LVH RVSP estimated at 25 mmHg Mild pulmonic and tricuspid regurg Mild left atrial dilatation . Previewed by: Dr Luis Antonio Gr (Electronically Signed) Final Date: 19 February 2023 10:15
== END | disposition home or self-care (01) ==
LOC: RADECHMAIN 13:55
PROVIDERS: ATTEND Internal Medicine
DX: Z01.818 Encounter for other preprocedural examination (principal); I37.1 Nonrheumatic pulmonary valve insufficiency; I36.1 Nonrheumatic tricuspid (valve) insufficiency; C34.31 Malignant neoplasm of lower lobe, right bronchus or lung; D47.Z9 Other specified neoplasms of uncertain behavior of lymphoid, hematopoietic and related tissue; E78.5 Hyperlipidemia, unspecified; Z71.3 Dietary counseling and surveillance
CPT/HCPCS: 93306

== ENCOUNTER → 2023-04-17 | Outpatient (CLI) | payer MEDICARE ==
--- NOTE | 2023-04-17 11:53 | MR ---
EXAMINATION TYPE: MR brain wo/w con DATE OF EXAM: 04/17/2023 COMPARISON: 02/13/2023 HISTORY: Post treatment Brain mets TECHNIQUE: Multiplanar, multisequence images of the brain and brainstem is performed without and with IV contras t, utilizing 7 mL intravenous Gadavist . FINDINGS: Diffusion weighted images demonstrate no evidence of a recent infarct or other diffusion ab normality. There is no extra-axial fluid collection or significant white matter signal abnormality. The ventricular system and cisternal spaces are normal in size and appearance. The brain volume is age appropriate. Midline structures demonstrate normal morphology. The craniocervical junction appears within normal limits. Post contrast images demonstrate interval reduction in size of the pontine lesion measuring 0.9 x 1.0 cm and previously measuring 1.3 x 1.2 cm. The two lesions within the cerebellar noted on the prior exam now measure punctate 1 to 2 mm in size and are improved. There are two lesions within the midbrain on the previous exam one of which is no longer seen. There are now measures 3 mm and previously measured 5 mm. Faint enhancement in the left frontal lobe is stable. Left basal ganglia nodules in the lung are seen. Right parietal lesion slightly reduced in size now measuring 2 to 3 mm with reduced enhancement avinash tible with response to therapy. Minimal residual punctate enhancement involving the medial superior left parietal lobe lesion demonst rating significant response to therapy measuring 1 to 2 mm. More anterior left frontal parietal junct ion lesion noted on prior exam not seen on today's exam. Additional multiple subcentimeter lesions have also demonstrated significant interval improvement or resolution. A mild degenerative change with nonspecific white matter findings most remote microvascular ischemia. Mild ectasia of the right MCA. Mild chronic sinusitis. Orbits are symmetric. There is no midline shift or mass effect. IMPRESSION: 1. Interval significant improvement in all lesions compatible with response to therapy as measured ab ove.
== END | disposition home or self-care (01) ==
LOC: RADMRIMAIN 10:23
PROVIDERS: ATTEND Radiology Radiation Oncology
DX: C79.31 Secondary malignant neoplasm of brain (principal); C34.31 Malignant neoplasm of lower lobe, right bronchus or lung; Z15.89 Genetic susceptibility to other disease
CPT/HCPCS: 70553; A9585

== ENCOUNTER → 2023-04-20 | Outpatient (CLI) | payer MEDICARE ==
[2023-04-20 11:11] LABS: African American GFR (CKD) >90 (>60 ml/min/1.73 sqM); Blood Urea Nitrogen 17 mg/dL (7-17); Non-African American GFR(CKD) 80 (>60 ml/min/1.73 sqM)
--- NOTE | 2023-04-24 08:58 | CT ---
EXAMINATION TYPE: CT ChestAbdPelvis w con DATE OF EXAM: 04/20/2023 INDICATION: obs for mets. hx of lung ca COMPARISON: 12/11/2022 CT DLP: 942.80 mGycm CONTRAST: Performed with Oral Contrast and with IV Contrast, patient injected with 100 ml mL of Isovue 300. TECHNIQUE: Axial images at 5 mm thick sections. Reconstructed images in the coronal plane. Delayed images through the kidneys. FINDINGS: CT CHEST: Portion of the thyroid visualized is normal. No suspicious lung nodules or focal infiltrates are present. Some mild nonspecific streak opacities a t the right lung base may be related to atelectasis appears similar to comparison. This may be the pa tient's primary neoplasm. Scarring could be considered. Underlying soft tissue component measures 1.0 cm which is stable from comparison, example image series 3 image 47 No enlarged mediastinal or hilar adenopathy is evident. The ascending aorta diameter at the level of the main pulmonary artery is 3.8 cm. The main pulmonary artery diameter at the bifurcation is 3.[address] ABDOMEN: Liver: There is a 2.6 cm transverse dimension hypodensity within the Spleen: Normal Pancreas: Normal Adrenal glands: The adrenal glands are normal. Gallbladder: Cholelithiasis is present. Kidneys: No masses are evident. No hydronephrosis is present. There is a cyst on the medial right k idney measuring 3.6 cm. Cyst superior pole left kidney measures 4.8 cm. Delayed images were obtained through the kidneys, which remain unremarkable. Aorta: Vascular calcification is within the aorta. Inferior vena cava: Normal. CT PELVIS: Loops of bowel within the abdomen and pelvis are normal. There are loops of bowel which are incom pletely distended or lack oral contrast limiting their evaluation. Appendix: Normal as visualized. Urinary bladder: Normal. Genitourinary structures: Uterus and ovaries are not identified. Osseous structures: No suspicious lytic or sclerotic lesions. IMPRESSION: 1. Stable appearance streak opacities posterior right lung base. Underlying soft tissue nodularity is stable. 2. Stable renal cysts. 3. Irregular stable hypodensity within the liver can be compatible with a metastatic lesion.
== END | disposition home or self-care (01) ==
LOC: RADCTMAIN 10:24
PROVIDERS: ATTEND Internal Medicine
DX: N28.1 Cyst of kidney, acquired (principal); K76.89 Other specified diseases of liver; R91.8 Other nonspecific abnormal finding of lung field; C34.31 Malignant neoplasm of lower lobe, right bronchus or lung; E78.5 Hyperlipidemia, unspecified; D47.Z9 Other specified neoplasms of uncertain behavior of lymphoid, hematopoietic and related tissue; Z71.3 Dietary counseling and surveillance
CPT/HCPCS: 82565; 84520; 71260; 74177; 36415; Q9967

== ENCOUNTER → 2023-07-08 | Outpatient (CLI) | payer MEDICARE ==
--- NOTE | 2023-07-08 11:57 | MR ---
EXAMINATION TYPE: MR brain wo/w con DATE OF EXAM: 07/08/2023 COMPARISON: 04/27/2023 HISTORY: Lung cancer. TECHNIQUE: Multiplanar, multisequence images of the brain and brainstem is performed without and with IV contras t, utilizing 7.5 mL intravenous Gadavist . FINDINGS: Diffusion weighted images demonstrate no evidence of a recent infarct or other diffusion ab normality. Midline structures demonstrate normal morphology. The craniocervical junction appears within normal limits. There is mild degenerative change and nonspecific white matter findings most typical of aster te ischemia. Prominent cisterna magna. Post contrast images demonstrate stable 0.9 x 1.0 cm pontine lesion. Punctate 1 to 2 mm areas of enhancement in the cerebellum are improved with minimal visualization. A stable 5 mm area of nodular enhancement within the midbrain. Stable subcentimeter area of enhancement and the left frontal lobe. Right frontal parietal lesion is reduced in size previously measuring 4 mm and now measuring 2.7 mm. Previously noted minimal punctate enhancement in the medial superior left parietal lobe and left fron toparietal junction not well-seen. A punctate enhancement image 124 right parietal lobe measuring 1 mm stable. The dural venous sinuses appear patent. Changes of chronic sinusitis and the globes are intact. IMPRESSION: 1. The majority of lesions are stable as discussed above with no new lesions or any interval increase in size relative to the most recent exam of 04/17/2023. A couple of the lesions have demonstrated int erval improvement as measured above.
== END | disposition home or self-care (01) ==
LOC: RADMRIMAIN 10:32
PROVIDERS: ATTEND Radiology Radiation Oncology
DX: G93.89 Other specified disorders of brain (principal); C79.31 Secondary malignant neoplasm of brain; C34.31 Malignant neoplasm of lower lobe, right bronchus or lung; Z15.89 Genetic susceptibility to other disease
CPT/HCPCS: 70553; A9585

== ENCOUNTER → 2023-07-27 | Outpatient (CLI) | payer MEDICARE ==
[2023-07-27 14:39] LABS: African American GFR (CKD) >90 (>60 ml/min/1.73 sqM); Blood Urea Nitrogen 16 mg/dL (7-17); Non-African American GFR(CKD) >90 (>60 ml/min/1.73 sqM)
--- NOTE | 2023-07-28 11:55 | CA ---
Transthoracic Echo Report Name: Ashley Babb Age: 67 Gender: F : 1955 Exam Date: 07/27/2023 15:20 Exam Location: [facility] Ht (in): 66 Wt (lb): 160 Ordering Physician: Jose Ramon Lin MD Attending/Referring Phys: Jose Ramon Lin MD Career Advisor Harriet Berger RDCS Procedure CPT: Indications: C34.31 lung ca Cardiac Hx: Technical Quality: Fair Contrast 1: Total Dose (mL): Contrast 2: Total Dose (mL): MEASUREMENTS (Male / Female) Normal Values 2D ECHO LV Diastolic Diameter PLAX 3.9 cm 4.2 - 5.9 / 3.9 - 5.3 cm LV Systolic Diameter PLAX 2.7 cm IVS Diastolic Thickness 1.3 cm 0.6 - 1.0 / 0.6 - 0.9 cm LVPW Diastolic Thickness 1.1 cm 0.6 - 1.0 / 0.6 - 0.9 cm LV Relative Wall Thickness 0.6 RV Internal Dim ED PLAX 3.2 cm LA Volume 30.3 cm??? 18 - 58 / 22 - 52 cm??? LA Volume Index 16.4 cm???/m??? 16 - 28 cm???/m??? M-MODE Aortic Root Diameter MM 3.3 cm LA Systolic Diameter MM 3.9 cm LA Ao Ratio MM 1.2 AV Cusp Separation MM 1.6 cm DOPPLER AV Peak Velocity 103.9 cm/s AV Peak Gradient 4.3 mmHg AV Mean Velocity 74.2 cm/s AV Mean Gradient 2.5 mmHg AV Velocity Time Integral 18.9 cm LVOT Peak Velocity 112.2 cm/s LVOT Peak Gradient 5.0 mmHg LVOT Velocity Time Integral 20.3 cm MV Area PHT 3.7 cm??? Mitral E Point Velocity 59.8 cm/s Mitral A Point Velocity 58.4 cm/s Mitral E to A Ratio 1.0 MV Deceleration Time 203.4 ms MV E' Velocity 7.4 cm/s Mitral E to MV E' Ratio 8.0 TR Peak Velocity 214.5 cm/s TR Peak Gradient 18.4 mmHg Right Ventricular Systolic Press 23.4 mmHg FINDINGS Left Ventricle Mildly increased left ventricular wall thickness. Left ventricular cavity size normal. Normal left ventricular systolic function with no obvious regional wall motion abnormalities. Left ventricular ejection fraction is estimated at 55-60 %. Grade 1 diastolic dysfunction. No left heart strain noted. Right Ventricle Normal right ventricular size and function. Right ventricular systolic pressure within normal limits. Right Atrium Normal right atrial size. Left Atrium Normal left atrial size. Mitral Valve Structurally normal mitral valve. Mild mitral regurgitation. Aortic Valve Trileaflet aortic valve. No aortic valve stenosis or regurgitation. Tricuspid Valve Structurally normal tricuspid valve. Mild tricuspid regurgitation. Pulmonic Valve Structurally normal pulmonic valve. Trace pulmonic regurgitation. Pericardium No pericardial effusion. Aorta Normal size aortic root and proximal ascending aorta. CONCLUSIONS Left ventricular ejection fraction 55-60% Mild mitral regurgitation Mild tricuspid regurgitation No pericardial effusion Previewed by: Dr. Harman Spears DO (Electronically Signed) Final Date: 28 Jul 2023 11:54
--- NOTE | 2023-07-30 12:25 | CT ---
EXAMINATION TYPE: CT ChestAbdPelvis w con CT DLP: 1305 mGycm, Automated exposure control for dose reduction was used. DATE OF EXAM: 07/27/2023 3:19 PM COMPARISON: 04/20/2023 CLINICAL INDICATION:Female, 67 years old with history of C34.31 lung ca;, hx lung ca, routine follow up observe for mets Technique: CT ChestAbdPelvis w con; Multiple axial images were obtained. Two-dimensional coronal and sagittal reconstructions were obtained. Contrast used:100 mL of Isovue 300 with IV Contrast, Oral contrast used: with Oral Contrast Findings: CHEST: LUNGS/ PLEURA: Stable streaky atelectasis/scarring in the right lung base. No new or enlarging pulmon bharath nodules. No focal consolidation, pneumothorax or pleural effusion. Stable calcified granuloma rig ht superior lung near the minor fissure AIRWAY: Patent and unremarkable. HEART: Size within normal limits. Atherosclerosis of the carotid arteries. MEDIASTINUM: No gross evidence of adenopathy. VASCULATURE: No aortic aneurysm. MUSCULOSKELETAL: No acute osseous abnormalities. SOFT TISSUES/LYMPH NODES: Unremarkable. LOWER NECK: No significant findings. ABDOMEN: ABDOMEN LIVER: Stable lesion right hepatic lobe measuring up to 23 mm GALLBLADDER AND BILE DUCTS: Layering increased densities within the lumen consistent with gallstones are present. PANCREAS: Unremarkable. SPLEEN: Unremarkable. ADRENAL GLANDS: Unremarkable. KIDNEYS AND URETERS: No evidence of hydronephrosis or renal calculus. The ureters are unremarkable. Bilateral simple appearing renal cysts. PELVIS BLADDER: Unremarkable REPRODUCTIVE: The uterus is surgically absent. ABDOMEN & PELVIS STOMACH AND BOWEL: No evidence of bowel obstruction. The appendix is normal. PERITONEUM: No evidence of pneumoperitoneum or free fluid. VASCULATURE: No evidence of aortic aneurysm. MUSCULOSKELETAL: No acute osseous abnormalities LYMPH NODES: No gross evidence for lymphadenopathy. SOFT TISSUE/ABDOMINAL WALL: Left fat-containing inguinal hernia. IMPRESSION: No evidence for lymphadenopathy or evidence suggest recurrence. Stable right lower lung streaky opaci ties.
== END | disposition home or self-care (01) ==
LOC: RADECHMAIN 13:21
PROVIDERS: ATTEND Internal Medicine
DX: Z01.818 Encounter for other preprocedural examination (principal); C34.31 Malignant neoplasm of lower lobe, right bronchus or lung; I08.1 Rheumatic disorders of both mitral and tricuspid valves; D47.Z9 Other specified neoplasms of uncertain behavior of lymphoid, hematopoietic and related tissue; E78.5 Hyperlipidemia, unspecified; Z71.3 Dietary counseling and surveillance
CPT/HCPCS: 93306; 82565; 84520; 71260; 74177; 36415; Q9967

== ENCOUNTER → 2023-10-15 | Outpatient (CLI) | payer MEDICARE | END | disposition home or self-care (01) | LOC: LABPRL 10:10 | DX: E78.2 Mixed hyperlipidemia | CPT/HCPCS: 80053; 80061; 83036; 83735; 84443; 84550; 85025 ==

== ENCOUNTER → 2023-11-10 | Outpatient (CLI) | payer MEDICARE ==
[2023-11-10 15:23] LABS: African American GFR (CKD) >90 (>60 ml/min/1.73 sqM); Blood Urea Nitrogen 18 mg/dL (7-17); Non-African American GFR(CKD) >90 (>60 ml/min/1.73 sqM)
--- NOTE | 2023-11-10 20:59 | CT ---
EXAMINATION TYPE: CT ChestAbdPelvis w con CT DLP: 1505 mGycm, Automated exposure control for dose reduction was used. DATE OF EXAM: 11/10/2023 4:46 PM COMPARISON: 07/27/2023. 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 Two-dimensional coronal and sagittal reconstructions were obtained. Contrast used:100 mL of Isovue 300 with IV Contrast, Oral contrast used: with Oral Contrast Findings: CHEST: LUNGS/ PLEURA: * Stable basilar streaky atelectasis/scarring in the right lung base. No new or enlarging pulmonary nodules. No focal consolidation, pneumothorax or pleural effusion. * Stable calcified granuloma right superior lung near the minor fissure. AIRWAY: Patent and unremarkable. HEART: Size within normal limits. Atherosclerosis of the carotid arteries. MEDIASTINUM: No gross evidence of adenopathy. VASCULATURE: No aortic aneurysm. MUSCULOSKELETAL: No acute osseous abnormalities. SOFT TISSUES/LYMPH NODES: Unremarkable. LOWER NECK: No significant findings. ABDOMEN: ABDOMEN LIVER: Stable lesion right hepatic lobe measuring up to 25 mm when measuring similarly. GALLBLADDER AND BILE DUCTS: Layering increased densities within the lumen consistent with gallstones are present. PANCREAS: Unremarkable. SPLEEN: Unremarkable. ADRENAL GLANDS: Unremarkable. KIDNEYS AND URETERS: No evidence of hydronephrosis or renal calculus. The ureters are unremarkable. Bilateral simple appearing renal cysts. PELVIS BLADDER: Unremarkable REPRODUCTIVE: The uterus is surgically absent. ABDOMEN & PELVIS STOMACH AND BOWEL: No evidence of bowel obstruction. The appendix is normal. PERITONEUM: No evidence of pneumoperitoneum or free fluid. VASCULATURE: No evidence of aortic aneurysm. MUSCULOSKELETAL: No acute osseous abnormalities LYMPH NODES: No gross evidence for lymphadenopathy. SOFT TISSUE/ABDOMINAL WALL: Left fat-containing inguinal hernia. IMPRESSION: No evidence for lymphadenopathy or evidence suggest recurrence. Stable lower lung streaky opacities.
== END | disposition home or self-care (01) ==
LOC: RADCTMAIN 14:32
PROVIDERS: ATTEND Internal Medicine
DX: C34.31 Malignant neoplasm of lower lobe, right bronchus or lung
CPT/HCPCS: 36415; 71260; 74177; 82565; 84520

== ENCOUNTER → 2023-12-09 | Outpatient (CLI) | payer MEDICARE ==
--- NOTE | 2023-11-13 20:01 | MR ---
Patient Ashley Babb L ID [id number] Order # EXAMINATION TYPE: MR brain w con DATE OF EXAM: 10/20/2023 COMPARISON: No comparison on downtime PACS HISTORY: Lung cancer, unsteady gait CONTRAST: Performed utilizing 7 mL intravenous Gadavist gadolinium contrast. TECHNIQUE: Multiplanar, multiecho imaging on a 3.0 Lindsey magnet is performed through the brain. Stud y is performed within 24 hours of arrival to the hospital. The craniovertebral junction is normal. The pituitary is normal. Diffusion-weighted imaging is performed. There is a focal area of increased signal on diffusion in t he right caballero radiata, series 301, image 60. An extremely subtle area may be within the left caballero radiata near the caudate head, series 303 image 152. There are couple of subcortical changes within the right parietal lobe, series 303 image 200, image 208. Some mild diffuse uptake may be within the left brainstem sample series 304 image 103. This area is s ignificantly more increased signal on the T2-weighted sequences extending into the brainstem across t he midline. This extends towards the left cerebral peduncle. Following contrast administration there are several small enhancing areas within the brainstem, examp le sequence 701 image 56. The largest measures 0.7 cm, series 701 image 53. There is a vague blush of contrast within the inferior left anterior basal ganglion, series 701 image 83. These areas appear hypointense on the diffusion-weighted imaging. There are a few additional nonsuspicious scattered punctate areas of hyperintensity on T2 and Inversi on Recovery weighted sequences which are non-specific but can be related to microvascular ischemic ch anges. Ventricles and sulci are appropriate for the patient age. IMPRESSION: 1. Several enhancing small circular areas with surrounding vasogenic edema within the left brainstem compatible with 4-5 metastatic lesions. 2. There are some additional diffusion weighted signal abnormalities within the right parietal centru m semiovale and the right and left caballero radiata discussed above which could be early nonenhancing m etastasis or ischemic type changes.
== END | disposition home or self-care (01) ==
LOC: RADMRIMAIN 10-16 09:15
PROVIDERS: ATTEND Radiology Radiation Oncology
DX: C34.31 Malignant neoplasm of lower lobe, right bronchus or lung (principal); C79.31 Secondary malignant neoplasm of brain; Z15.89 Genetic susceptibility to other disease
CPT/HCPCS: 70553 ×2; A9585 ×2

== ENCOUNTER 2024-01-15 12:07 | Inpatient (IN) | payer MEDICARE ==
[2024-01-15 12:23] LABS: Glucose,Whole Blood 196 mg/dL (70-110)
--- NOTE | 2024-01-15 12:31 | ED ---
General Adult HPI - General Chief complaint: Neuro Symptoms/Deficit Stated complaint: L arm numbness, chest pain Time Seen by Provider: 01/15/24 12:14 Source: patient Mode of arrival: ambulatory Limitations: no limitations - History of Present Illness Initial comments: Dictation was produced using [employer] dictation software. please excuse any grammatical, word or spelling errors. Chief Complaint: 68-year-old female past medical history of metastatic lung cancer with metastatic disease to the brain presents to the ER for new onset left arm tingling sensation History of Present Illness: Patient 68-year-old female she has history of stage IV lung cancer she has known metastatic disease to the brain. She has had radiation therapy to mets on the brain. She has chronic deficits to the whole right side of her body secondary to the brain mets. States that she was in bed last night when in the middle of the night she started to feel some what she describes as prickling sensation to her whole left arm. States that is new. She does take oral chemotherapy. Denies any chest pain however she does report of some feelings of indigestion. Denies any nausea vomiting. No diaphoresis. The ROS documented in this emergency department record has been reviewed and confirmed by me. Those systems with pertinent positive or negative responses have been documented in the HPI. All other systems are other negative and/or noncontributory. - Related Data Home Medications Medication Instructions Recorded Confirmed Multivitamin/Iron/Folic Acid 1 tab PO DAILY 04/03/15 09/12/22 [Centrum Complete Multivit Tab] Cholecalciferol [Vitamin D3 (25 50 mcg PO DAILY 03/15/22 09/12/22 Mcg = 1000 Iu)] Ezetimibe [Zetia] 10 mg PO HS 03/15/22 09/12/22 Prochlorperazine [Compazine] 10 mg PO Q6H PRN 06/09/22 09/12/22 OLANZapine [ZyPREXA] 2.5 mg PO DIRECTED 09/12/22 09/12/22 Ondansetron Odt [Zofran Odt] 4 mg PO TID PRN 09/12/22 09/12/22 Tafinlar 50mg 50 mg PO BID@0500,1700 09/12/22 09/12/22 Trametinib Dimethyl Sulfoxide 1.5 mg PO DAILY@0500 09/12/22 09/12/22 [Mekinist] Previous Rx's Medication Instructions Recorded Aspirin 81 mg PO DAILY tab 12/26/20 Atorvastatin [Lipitor] 80 mg PO HS #30 tab 12/26/20 Metoprolol Tartrate [Lopressor] 25 mg PO BID 30 Days #60 tab 12/26/20 lisinopriL [Zestril] 2.5 mg PO DAILY 30 Days #30 tab 12/26/20 Allergies Allergy/AdvReac Type Severity Reaction Status Date / Time No Known Allergies Allergy Verified 01/15/24 12:13 Review of Systems ROS Statement: Those systems with pertinent positive or pertinent negative responses have been documented in the HPI. ROS Other: All systems not noted in ROS Statement are negative. Past Medical History Past Medical History: Cancer, Hyperlipidemia, Thyroid Disorder Additional Past Medical History / Comment(s): previously 3 nodules on right side, Lung CA, Brain CA History of Any Multi-Drug Resistant Organisms: None Reported Past Surgical History: Hysterectomy Additional Past Surgical History / Comment(s): previous thyroidectomy - right side. Past Anesthesia/Blood Transfusion Reactions: No Reported Reaction Past Psychological History: No Psychological Hx Reported Smoking Status: Former smoker Past Alcohol Use History: Occasional Past Drug Use History: None Reported - Past Family History Father Family Medical History: Cancer, Hearing Disorder / Deafness Additional Family Medical History / Comment(s): lung General Exam - General Exam Comments Initial Comments: PHYSICAL EXAM: General Impression: Alert and oriented x3, not in acute distress HEENT: Normocephalic atraumatic, extra-ocular movements intact, pupils equal and reactive to light bilaterally, mucous membranes moist. Cardiovascular: Heart regular rate and rhythm Chest: Able to complete full sentences, no retractions, no tachypnea Abdomen: abdomen soft, non-tender, non-distended, no organomegaly Musculoskeletal: Pulses present and equal in all extremities, no peripheral edema Motor: no focal deficits noted Neurological: Sided facial droop, deficit to the right eye, contracture into the right arm and right leg. Reported sensory deficit to light touch of the left arm Skin: Intact with no visualized rashes Psych: Normal affect and mood Limitations: no limitations Course Vital Signs 01/15/24 01/15/24 01/15/24 12:10 13:16 13:43 Temperature 97.7 F Pulse Rate 78 70 70 Respiratory 16 20 18 Rate Blood Pressure 89/67 91/61 97/66 O2 Sat by Pulse 96 96 Oximetry - Reevaluation(s) Reevaluation #1: 01/15/24 12:30 Code stroke was considered however patient clearly not a candidate for alteplase given time of onset along with pre-existing known history of intracranial mass. Reevaluation #2: 01/15/24 15:41 Discussed with on-call neurology, Dr. Vega. Dr. Vega is agreeable that patient is amenable for admission to our facility. EKG Findings - EKG Comments: EKG Findings:: My EKG interpretation: Ventricular rate 66, sinus rhythm,. 149, QRS 94, QTc 396. No AK prolongation, no QTC prolongation, no ST or T-wave changes noted. Overall, this EKG is unremarkable Medical Decision Making - Medical Decision Making Was pt. sent in by a medical professional or institution (, PA, [employer], urgent care, hospital, or long-term...) When possible be specific @ -No Did you speak to anyone other than the patient for history (EMS, parent, family, police, friend...)? What history was obtained from this source @ -Family members as described above Did you review nursing and triage notes (agree or disagree)? Why? @ -I reviewed and agree with nursing and triage notes Were old charts reviewed (outside hosp., previous admission, EMS record, old EKG, old radiological studies, urgent care reports/EKG's, long-term records)? Report findings @ -No old charts were reviewed Differential Diagnosis (chest pain, altered mental status, abdominal pain women, abdominal pain men, vaginal bleeding, musculoskeletal, weakness, fever, dyspnea, syncope, headache, dizziness, GI bleed, back pain, seizure, CVA, palpatations, mental health)? @ - Differential CVA: Ischemic stroke, hemorrhagic stroke, brain tumor, atypical migraine, Wernicke's encephalopathy, seizure, multiple sclerosis, meningitis, encephalitis, hypoglycemia, Guillain-Cabrera, electrolytes disturbance, myasthenia gravis.... This is not meant to be an all-inclusive list EKG interpreted by me (3pts min.). @ -See above X-rays interpreted by me (1pt min.). @ -None done CT interpreted by me (1pt min.). @ -CT brain shows no bleed. CT angiography shows no large vessel occlusion. U/S interpreted by me (1pt. min.). @ -None done What testing was considered but not performed or refused? (CT, X-rays, U/S, labs)? Why? @ -None What meds were considered but not given or refused? Why? @ -Thrombolytics were considered however patient outside the window for treatment Was smoking cessation discussed for >3mins.? @ -No Were there social determinants of health that impacted care today? How? (Homel essness, low income, unemployed, alcoholism, drug addiction, transportation, low edu. Level, literacy, decrease access to med. care, custodial, rehab)? @ -No Was there de-escalation of care discussed even if they declined (Discuss DNR or withdrawal of care, Hospice)? DNR status @ -No What co-morbidities impacted this encounter? (DM, HTN, Smoking, COPD, CAD, Cancer, CVA, ARF, Chemo, Hep., AIDS, mental health diagnosis, sleep apnea, morbid obesity)? @ -Lung cancer with metastatic disease to the brain Was patient admitted / discharged? Hospital course, mention meds given and route, prescriptions, significant lab abnormalities, going to OR and other pertinent info. @ -60-year-old female with pre-existing neurologic focal symptoms from metastatic lung cancer to the brain presents to the ER with new onset sensory deficit of the left upper extremity. Patient outside the window for thrombolytics. Vital signs are stable. CT brain shows no bleed. There does appear to be stable metastatic brain cancer findings. CT angiography shows no large vessel occlusion. Laboratory evaluation obtained. Erythrocytosis 19.3. Leukocytosis of 17.9 of unclear etiology. Laboratory evaluation otherwise u nremarkable. Case discussed with neurology as described above. Case discussed with Dr. Granados for admission. Did you discuss the management of the patient with other professionals (professionals i.e. , PA, [employer], lab, RT, psych nurse, social work faculty member, tab cutter, teacher, air intelligence officer, telephonic nurse case manager)? Give summary @ -See above Was critical care preformed (if so, how long)? @ -No Undiagnosed new problem with uncertain prognosis? @ -No Drug Therapy requiring intensive monitoring for toxicity (Heparin, Nitro, Insulin, Cardizem)? @ -No Were any procedures done? @ -No Diagnosis/symptom? Acute, or Chronic, or Acute on Chronic? Uncomplicated (without systemic symptoms) or Complicated (systemic symptoms)? @ -Strokelike symptoms Side effects of treatment? @ -No Exacerbation, Progression, or Severe Exacerbation? @ -No Poses a threat to life or bodily function? How? (Chest pain, USA, NM, pneumonia, PE, COPD, DKA, ARF, appy, cholecystitis, CVA, Diverticulitis, Homicidal, Suicidal, threat to staff... and all critical care pts) @ -yes - Lab Data Result diagrams: 01/15/24 12:45 01/15/24 12:45 Lab Results 01/15/24 01/15/24 01/15/24 Range/Units 12:21 12:45 12:45 WBC 17.9 H (3.8-10.6) k/uL RBC 6.12 H (3.80-5.40) m/uL Hgb 19.3 H* (11.4-16.0) gm/dL Hct 60.9 H* (34.0-46.0) % MCV 99.5 (80.0-100.0) fL MCH 31.5 (25.0-35.0) pg MCHC 31.7 (31.0-37.0) g/dL RDW 17.5 H (11.5-15.5) % Plt Count 510 H (150-450) k/uL MPV 8.6 Neutrophils % 89 % Lymphocytes % 5 % Monocytes % 5 % Eosinophils % 1 % Basophils % 0 % Neutrophils # 15.9 H (1.3-7.7) k/uL Lymphocytes # 0.8 L (1.0-4.8) k/uL Monocytes # 0.9 (0-1.0) k/uL Eosinophils # 0.2 (0-0.7) k/uL Basophils # 0.1 (0-0.2) k/uL Anisocytosis Slight Macrocytosis Slight PT (10.0-12.5) sec INR (<1.2) APTT (22.0-30.0) sec Sodium 140 (137-145) mmol/L Potassium 4.7 (3.5-5.1) mmol/L Chloride 109 H (98-107) mmol/L Carbon Dioxide 22 (22-30) mmol/L Anion Gap 9 mmol/L BUN 14 (7-17) mg/dL Creatinine 0.68 (0.52-1.04) mg/dL Est GFR (CKD-EPI)AfAm >90 (>60 ml/min/1.73 sqM) Est GFR (CKD-EPI)NonAf >90 (>60 ml/min/1.73 sqM) Glucose 187 H (74-99) mg/dL POC Glucose (mg/dL) 196 H (70-110) mg/dL POC Glu Parent Coach ID Harish José Calcium 9.5 (8.4-10.2) mg/dL Magnesium 1.9 (1.6-2.3) mg/dL Total Bilirubin 1.0 (0.2-1.3) mg/dL AST 60 H (14-36) U/L ALT 42 H (4-34) U/L Alkaline Phosphatase 121 (38-126) U/L Troponin I (0.000-0.034) ng/mL Total Protein 6.3 (6.3-8.2) g/dL Albumin 3.7 (3.5-5.0) g/dL 01/15/24 01/15/24 Range/Units 12:45 13:30 WBC (3.8-10.6) k/uL RBC (3.80-5.40) m/uL Hgb (11.4-16.0) gm/dL Hct (34.0-46.0) % MCV (80.0-100.0) fL MCH (25.0-35.0) pg MCHC (31.0-37.0) g/dL RDW (11.5-15.5) % Plt Count (150-450) k/uL MPV Neutrophils % % Lymphocytes % % Monocytes % % Eosinophils % % Basophils % % Neutrophils # (1.3-7.7) k/uL Lymphocytes # (1.0-4.8) k/uL Monocytes # (0-1.0) k/uL Eosinophils # (0-0.7) k/uL Basophils # (0-0.2) k/uL Anisocytosis Macrocytosis PT 11.1 (10.0-12.5) sec INR 1.0 (<1.2) APTT 25.2 (22.0-30.0) sec Sodium (137-145) mmol/L Potassium (3.5-5.1) mmol/L Chloride (98-107) mmol/L Carbon Dioxide (22-30) mmol/L Anion Gap mmol/L BUN (7-17) mg/dL Creatinine (0.52-1.04) mg/dL Est GFR (CKD-EPI)AfAm (>60 ml/min/1.73 sqM) Est GFR (CKD-EPI)NonAf (>60 ml/min/1.73 sqM) Glucose (74-99) mg/dL POC Glucose (mg/dL) (70-110) mg/dL POC Glu Parent Coach ID Calcium (8.4-10.2) mg/dL Magnesium (1.6-2.3) mg/dL Total Bilirubin (0.2-1.3) mg/dL AST (14-36) U/L ALT (4-34) U/L Alkaline Phosphatase (38-126) U/L Troponin I <0.012 (0.000-0.034) ng/mL Total Protein (6.3-8.2) g/dL Albumin (3.5-5.0) g/dL Disposition Clinical Impression: Stroke-like symptoms Disposition: ADMITTED IP TO THIS [facility] Condition: Fair Referrals: Papo Granados MD [Primary Care Provider] - 1-2 days Decision Time: 16:05
[2024-01-15 13:07] LABS: Anisocytosis Slight; Basophils # (A) 0.1 k/uL (0-0.2); Basophils % (A) 0 %; Eosinophils # (A) 0.2 k/uL (0-0.7); Eosinophils % (A) 1 %; Lymphocytes # (A) 0.8 k/uL (1.0-4.8); Lymphocytes % (A) 5 %; MCH 31.5 pg (25.0-35.0); MCHC 31.7 g/dL (31.0-37.0); MCV 99.5 fL (80.0-100.0); Macrocytosis Slight; Mean Platelet Volume 8.6; Monocytes # (A) 0.9 k/uL (0-1.0); Monocytes % (A) 5 %; Neutrophils # (A) 15.9 k/uL (1.3-7.7); Neutrophils % (A) 89 %; Platelet Count 510 k/uL (150-450); RBC 6.12 m/uL (3.80-5.40); RDW 17.5 % (11.5-15.5); WBC 17.9 k/uL (3.8-10.6)
[2024-01-15 13:16] LABS: HCT 60.9 % (34.0-46.0); HGB 19.3 gm/dL (11.4-16.0)
[2024-01-15 13:18] LABS: African American GFR (CKD) >90 (>60 ml/min/1.73 sqM); Albumin 3.7 g/dL (3.5-5.0); Chloride 109 mmol/L (98-107); Non-African American GFR(CKD) >90 (>60 ml/min/1.73 sqM); Sodium 140 mmol/L (137-145); Total Protein 6.3 g/dL (6.3-8.2)
[2024-01-15 13:28] LABS: ALT 42 U/L (4-34); Anion Gap 9 mmol/L; Calcium 9.5 mg/dL (8.4-10.2); Carbon Dioxide 22 mmol/L (22-30); Glucose 187 mg/dL (74-99)
[2024-01-15 13:43] LABS: Magnesium 1.9 mg/dL (1.6-2.3)
[2024-01-15 13:44] LABS: AST 60 U/L (14-36); Alkaline Phosphatase 121 U/L (38-126); Blood Urea Nitrogen 14 mg/dL (7-17); Potassium 4.7 mmol/L (3.5-5.1)
[2024-01-15 14:20] LABS: Partial Thromboplastin Time 25.2 sec (22.0-30.0); Prothrombin Time 11.1 sec (10.0-12.5)
--- NOTE | 2024-01-15 14:55 | CT ---
EXAMINATION TYPE: CT brain wo con DATE OF EXAM: 01/15/2024 COMPARISON: None CLINICAL INDICATION: Female, 68 years old with history of new onset left arm tingling; PHH, BRAIN CA/ RECIEVING RADIATION/ SLURRED SPEECH/ FACIAL DROOP CT DLP: 1092.4 mGycm Automated exposure control for dose reduction was used. Findings: The ventricles, basal cisterns and sulci over the convexities are within normal limits and there is n o mass effect or shift of midline structures. There is a focal area of vasogenic edema in the right parietal lobe. There is a small focal area of v asogenic edema in the left temporal lobe. There is a subtle area of decreased density in the medial l eft temporal lobe. There is no acute intra or extra-axial hemorrhage.. The posterior fossa including the brainstem, fourth ventricle and cerebellar pontine angles appear no rmal. Intraorbital contents appear normal and symmetric. Visualized paranasal sinuses and mastoid air cells are well aerated. The calvarium is intact. IMPRESSION: 1. Multiple focal areas of decreased density in the right parietal lobe and left temporal lobe as vivi cribed above. The findings are likely related to metastatic disease. See the MRI of the brain dated 1 . 2. No acute bleed or mass effect. [facility], , 01/15/2024 2:53 PM
--- NOTE | 2024-01-15 14:59 | CT ---
EXAMINATION TYPE: CT angio head neck DATE OF EXAM: 01/15/2024 COMPARISON: None CLINICAL INDICATION: Female, 68 years old with history of neurologic defecit; PHH, BRAIN CA/ RECIEVIN G RADIATION/ SLURRED SPEECH/ FACIAL DROOP TECHNIQUE: CTA scan of the head and neck is performed with IV Contrast, patient injected with 65 mL of Isovue 370, axial images are obtained, coronal and sagittal reformatted images are reviewed. 3D re constructed images are created on an independent workstation and reviewed. CT DLP: 406.[address] CTDI: mGy Automated exposure control for dose reduction was used. NASCET criteria was used in interpretation of this exam? FINDINGS: The brachiocephalic origins are widely patent and no significant stenosis. There is no significant stenosis of the common or internal carotid arteries within the neck. There is no stenosis of the vertebral arteries. Intracranially, there is no stenosis, segmental occlusion, sizable aneurysm sac or vascular malformat ion. IMPRESSION:. No significant abnormality seen. No evidence of arterial occlusive disease in the head o r neck NASCET criteria was used in interpretation of this exam? [facility], , 01/15/2024 2:56 PM
[2024-01-15] MEDS ORDERED: NALOXONE 0.4 MG/ML 1 ML VIAL IV PRN (16:00)
[2024-01-15] MEDS: SODIUM CHLORIDE 0.9% 1,000 ML IV STA (16:11)
[2024-01-15] MEDS: DEXAMETHASONE SOD PHOSPHATE 10 MG/ML 1 ML VIAL IVP STA (16:12)
[2024-01-15] MEDS: SODIUM CHLORIDE 0.9% 1,000 ML IV SCH (16:12)
[2024-01-16 10:24] LABS: Anisocytosis Slight; Basophils % (A) 0 %; Eosinophils # (A) 0.1 k/uL (0-0.7); Eosinophils % (A) 1 %; HGB 17.4 gm/dL (11.4-16.0); Hypochromasia Moderate; Lymphocytes # (A) 1.2 k/uL (1.0-4.8); Lymphocytes % (A) 7 %; MCH 31.6 pg (25.0-35.0); MCV 101.8 fL (80.0-100.0); Macrocytosis Moderate; Mean Platelet Volume 7.7; Monocytes # (A) 0.5 k/uL (0-1.0); Monocytes % (A) 3 %; Neutrophils # (A) 15.2 k/uL (1.3-7.7); Neutrophils % (A) 89 %; Platelet Count 424 k/uL (150-450); RBC 5.51 m/uL (3.80-5.40); RDW 16.8 % (11.5-15.5); WBC 17.1 k/uL (3.8-10.6)
[2024-01-16 10:31] LABS: HCT 56.1 % (34.0-46.0)
[2024-01-16] MEDS: levETIRAcetam 500 MG TAB PO SCH (11:42)
--- NOTE | 2024-01-16 14:01 | P.CNNES ---
History of Present Illness Consult date: 01/16/24 Requesting physician: Alejandro Osorio Reason for Consult: stroke-like symptoms History of Present Illness: This is a 68-year-old woman with history of lung cancer with mets to the brain with residual right hemiparesis, dysarthria expressive aphasia who presented emergency department because of left upper extremity numbness. Patient states that she has new onset left upper extremity numbness that she felt this started yesterday. She denies any history of seizure. She has completed her 10th round of radiation this week. She also was on oral chemotherapy. She denies any nausea any vomiting. Denies any new focal deficit. Patient has multiple MRI of the brain in the past Some of the workup during this hospital visit consisted of: Hemoglobin is 19.3 hematocrit 60.9 AST 60 and ALT is 42 I reviewed the rest of the lab workup next CT of the head is read as multiple focal area of decreased density in the right parietal lobe and left temporal lobe. The findings are likely related to metastatic disease. No acute bleed or mass effect. Personally reviewed the CT and I do agree the patient has multiple metastatic lesions with vasogenic edema. CT angiography of the head and neck is reported as no significant abnormality seen. No evidence of arterial occlusion disease in the head or neck. Patient most recent MRI of the brain was on 12/09/2023 and she reported as scattered metastatic disease throughout the brain which is larger from immediate prior and concerning for progression of disease. Review of Systems As per HPI. Past Medical History Past Medical History: Cancer, Hyperlipidemia, Thyroid Disorder Additional Past Medical History / Comment(s): previously 3 nodules on right side, Lung CA, Brain CA History of Any Multi-Drug Resistant Organisms: None Reported Past Surgical History: Hysterectomy Additional Past Surgical History / Comment(s): previous thyroidectomy - right side. Past Anesthesia/Blood Transfusion Reactions: No Reported Reaction Past Psychological History: No Psychological Hx Reported Smoking Status: Former smoker Past Alcohol Use History: Occasional Past Drug Use History: None Reported - Past Family History Father Family Medical History: Cancer, Hearing Disorder / Deafness Additional Family Medical History / Comment(s): lung Medications and Allergies Home Medications Medication Instructions Recorded Confirmed Type Metoprolol Tartrate [Lopressor] 25 mg PO BID 30 Days #60 tab 12/26/20 01/15/24 Rx Ezetimibe [Zetia] 10 mg PO HS 03/15/22 01/15/24 History OLANZapine [ZyPREXA] 2.5 mg PO HS 09/12/22 01/15/24 History Tafinlar 50mg 50 mg PO BID@0400,1600 09/12/22 01/15/24 History Trametinib Dimethyl Sulfoxide 1.5 mg PO DAILY@0400 09/12/22 01/15/24 History [Mekinist] Atorvastatin [Lipitor] 80 mg PO DAILY 01/15/24 01/15/24 History dexAMETHasone [Decadron] See Taper PO DIRECTED 01/15/24 01/15/24 History lisinopriL [Zestril] 5 mg PO DAILY 01/15/24 01/15/24 History oxyBUTYnin chloride [Ditropan] 5 mg PO BID 01/15/24 01/15/24 History Allergies Allergy/AdvReac Type Severity Reaction Status Date / Time No Known Allergies Allergy Verified 01/15/24 16:21 Physical Examination - Vital Signs Vital Signs: Vital Signs Pulse Resp BP Pulse Ox 01/16/24 13:00 77 16 90/54 94 L 01/16/24 10:53 79 17 98/76 99 01/16/24 04:00 65 16 118/69 97 01/16/24 02:00 68 18 107/69 01/16/24 00:00 68 18 90/67 96 01/15/24 22:06 78 18 97/65 97 01/15/24 18:12 63 20 97/66 96 01/15/24 17:12 72 20 104/63 96 01/15/24 17:00 65 20 104/63 98 01/15/24 16:00 68 20 118/98 96 General: Lying in bed and is not in acute distress. Neuro: Awake alert oriented to self place and time. Is following simple commands. Patient has expressive aphasia. Pupils are round equal reactive to light. Visual killian are full to confrontation. Extraocular movement is patient has restriction movement of the left eye looking to the left and when she looks to the left she has nystagmus on the right eye. Patient has right lower facial weakness. Has moderate dysarthria. Tongue is midline move [id number] without difficulty Motor the strength in the right upper extremity is very limited and has significant weakness proximal while distal is about maybe 2-3 and more like a 2. Lower extremity is about a 0. Left upper lower extremity is about a 4-4+. Sensation is decreased on the left side. The plantar is upgoing on the right. Mute on the left Results - Laboratory Findings CBC and BMP: 01/16/24 10:02 01/15/24 12:45 Abnormal Lab Findings: Abnormal Labs 01/15/24 01/15/24 01/15/24 12:21 12:45 12:45 WBC 17.9 H RBC 6.12 H Hgb 19.3 H* Hct 60.9 H* MCV RDW 17.5 H Plt Count 510 H Neutrophils # 15.9 H Lymphocytes # 0.8 L Chloride 109 H Glucose 187 H POC Glucose (mg/dL) 196 H AST 60 H ALT 42 H 01/16/24 10:02 WBC 17.1 H RBC 5.51 H Hgb 17.4 H Hct 56.1 H MCV 101.8 H RDW 16.8 H Plt Count Neutrophils # 15.2 H Lymphocytes # Chloride Glucose POC Glucose (mg/dL) AST ALT Assessment and Plan Assessment: This is a 68-year-old woman with history of lung cancer with metastasis to the brain over bilateral hemisphere as well as brainstem with residual significant right hemiparesis, dysarthria, expressive aphasia who presented emergency department on 01/15/2024 because the left upper extremity numbness. Had a recent MRI of the brain about a month ago which shows progression of her metastatic lesion from her prior MRI. Numbness over the left side I feel is more due to cortical irritability from her brain mets causing likely focal seizure without loss of consciousness. History of lung cancer with breast mets to the brain and the patient has completed her 10th round of radiation this past week and she is on oral chemotherapy residual significant right hemiparesis, expressive aphasia, dysarthria as well as has left lateral rectus palsy. Has vasogenic edema due to above. Plan: I started the patient on Keppra 500 mg every 12 hours because of my concern for seizure I ordered routine EEG. Spoke with the oncology team and notified them from my side no need to pursue MRI since she had one about a month ago and my concern is her cortical irritability from the brain mets and they agreed to hold off with MRI as an inpatient Recommend Decadron but will leave that decision to the oncology team Seizure precautions seizure pads Will defer the rest of the medical management to primary and other specialist Plan discussed with the patient and the oncology nurse practitioner. Dr. Saldana will resume neurology service on 01/18/2024 A.M. Time with Patient: Greater than 30
[2024-01-16] MEDS ORDERED: TAFINLAR PO SCH (16:00)
[2024-01-16] MEDS: DEXAMETHASONE SOD PHOSPHATE 4 MG/ML 1 ML VIAL IVP SCH (17:50)
--- NOTE | 2024-01-16 20:07 | P.CONS ---
History of Present Illness - Reason for Consult Consult date: 01/16/24 metastatic lung cancer Requesting physician: Alejandro Osorio - Chief Complaint left arm parathesia - History of Present Illness Ms. 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 She initially followed with Dr. Velazquez of pulmonology for persistent cough which had developed over 2 to [address] chest 02/19/2022 noted focal masslike consolidation in the right middle lobe measuring 2.7 x 2.2 cm along with mass/masslike consolidation in the right lower lobe measuring 6.1 x 4.5 cm and a nodular area measuring 1.3 cm in the lateral part of the right lower lobe. PET/CT on 02/28/2022 done at [facility] revealed right middle and right lower lobe patchy consolidative changes with increased FDG avidity in the right lung base with an SUV of 5. This area measured 2.6 x 2.1 cm. There were 2 hypodense areas in the right hepatic lobe of the liver near the dome, which were not FDG avid. There was FDG avidity in the left proximal humerus with an SUV of 4.3. She was due to have a brain MRI as part of staging concerning for lung cancer when she developed progressive ataxia with a right leaning gait as well as new onset dysarthria. She initially presented to [facility] and was subsequently transferred to [facility] for additional management. Brain MRI on 03/16/2022 showed a ring- enhancing central left paramedian pontine mass measuring 14.6 x 15.6 x 14.7 mm with significant surrounding edema involving the entire ewelina with extension into the middle cerebellar peduncles, increased signal intensity into the left medullary pyramid and the cervicomedullary junction. There was a deformity of the fourth ventricle without hydrocephalus. Cervical spine MRI on 03/16/2022 noted lateral masses of C1 that were hyperintense on T2 but not T1. These were not definitive for malignancy. An MRI of the abdomen on 03/16/2022 noted 3 hyperintense T2 signals in both hepatic lobes which were compatible with heman giomas. She was initially placed on steroids per neurosurgery and eventually was discharged on 03/18/2022 for additional work-up outpatient. She had a flexible bronchoscopy with transbronchial FNA biopsy on 03/20/2022 of the 4R and 11 R lymph nodes which were negative for malignancy in the 4R lymph node, but was positive for metastatic adenocarcinoma in the 11 R lymph node. IHC was positive for TTF-1 and negative for p40. NGS revealed a BRAF [id number] mutation. She was discussed at tumor board. Started BRAF targeted therapy tafinlar/mekinist 04/2022. JAK2 V617F was noted to be positive from germline testing consistent with polycythemia vera. Dabrafenib and trametinib doses were decreased to 100 mg twice daily and 1.5 mg daily following last visit due to fatigue and nausea upon restarting these medications. MRI of the brain on 09/05/2022 revealed area in the brainstem being enlarged to 1.3 cm from 0.8 x 1 cm. No additional metastases were noted. She was started on dexamethasone taper per Dr. Shaikh and has had no further episodes of ataxia, which was completed in the end of October 2022. Brain MRI on 02/13/2023 noted increasing size of known pontine lesion in addition to new subcentimeter lesions involving the cerebellum and bilateral cerebral hemispheres. After restarting dabrafenib/trametinib at 50 mg twice daily and 1 mg daily, repeat brain MRI on 04/17/2023 noted interval significant improvement in all previously visualized lesions. Because of this, whole brain radiation therapy was deferred. MRI of the brain on 10/20/2023 noted small lesions that were enhancing with vasogenic edema that were concerning for 4-5 metastatic lesions. She was placed on course of dexamethasone, which did provide relief. Staging CT scans on 11/10/2023 revealed no evidence of recurrent or metastatic disease. Brain MRI on 12/09/2023 revealed evidence of disease progression with new brain lesions in addition to increased edema at the ewelina. She was increased to dexamethasone 4 times daily. She completed whole brain radiation with Dr. Shaikh 01/13/24. Given she has no evidence of disease progression systemically, it was recommended to continue dabrafenib/trametinib at 50 mg twice daily and 1 mg daily. Patient presented to the emergency room with complaints of left upper extremity numbness and tingling. Patient denies any other acute changes or neurological deficits. She does have chronic right sided deficits. Upon admit CT brain without contrast showed multiple focal areas of decreased density in the right parietal lobe and left temporal lobe. With no acute bleed or mass effect noted. CTA head and neck was subsequently obtained which showed no significant abnormality. No evidence of arterial occlusive disease within the head or neck. Neurology has been consulted. Keppra has been started and plan for EEG on Thursday. Labs reviewed, hemoglobin 17.1, hematocrit 56.1, platelets 424,000, WBC 17.1. Creatinine 0.68, GFR greater than 90. Coags WNL. Bilirubin and LFTs WNL. Patient was given 1 dose IV dexamethasone 10 mg upon arrival. At today's visit patient is reporting resolution of left upper extremity numbness and tingling. Stating she feels at her baseline. Review of Systems 10 point ROS is negative except as stated in the HPI Past Medical History Past Medical History: Cancer, Hyperlipidemia, Thyroid Disorder Additional Past Medical History / Comment(s): previously 3 nodules on right side, Lung CA, Brain CA History of Any Multi-Drug Resistant Organisms: None Reported Past Surgical History: Hysterectomy Additional Past Surgical History / Comment(s): previous thyroidectomy - right side. Past Anesthesia/Blood Transfusion Reactions: No Reported Reaction Past Psychological History: No Psychological Hx Reported Smoking Status: Former smoker Past Alcohol Use History: Occasional Past Drug Use History: None Reported - Past Family History Father Family Medical History: Cancer, Hearing Disorder / Deafness Additional Family Medical History / Comment(s): lung Medications and Allergies Home Medications Medication Instructions Recorded Confirmed Type Metoprolol Tartrate [Lopressor] 25 mg PO BID 30 Days #60 tab 12/26/20 01/15/24 Rx Ezetimibe [Zetia] 10 mg PO HS 03/15/22 01/15/24 History OLANZapine [ZyPREXA] 2.5 mg PO HS 09/12/22 01/15/24 History Tafinlar 50mg 50 mg PO BID@0400,1600 09/12/22 01/15/24 History Trametinib Dimethyl Sulfoxide 1.5 mg PO DAILY@0400 09/12/22 01/15/24 History [Mekinist] Atorvastatin [Lipitor] 80 mg PO DAILY 01/15/24 01/15/24 History dexAMETHasone [Decadron] See Taper PO DIRECTED 01/15/24 01/15/24 History lisinopriL [Zestril] 5 mg PO DAILY 01/15/24 01/15/24 History oxyBUTYnin chloride [Ditropan] 5 mg PO BID 01/15/24 01/15/24 History Allergies Allergy/AdvReac Type Severity Reaction Status Date / Time No Known Allergies Allergy Verified 01/15/24 16:21 Physical Exam Vitals: Vital Signs Temp Pulse Resp BP Pulse Ox 01/16/24 04:00 65 16 118/69 97 01/16/24 02:00 68 18 107/69 01/16/24 00:00 68 18 90/67 96 01/15/24 22:06 78 18 97/65 97 01/15/24 18:12 63 20 97/66 96 01/15/24 17:12 72 20 104/63 96 01/15/24 17:00 65 20 104/63 98 01/15/24 16:00 68 20 118/98 96 01/15/24 13:43 70 18 97/66 01/15/24 13:16 70 20 91/61 96 01/15/24 12:10 97.7 F 78 16 89/67 96 - Constitutional General appearance: no acute distress - EENT ENT: hearing grossly normal - Respiratory breathing is even and unlabored - Cardiovascular well perfused - Gastrointestinal General gastrointestinal: soft, no tenderness - Integumentary Integumentary: no cyanotic, no jaundiced - Neurologic slurred speech, right sided weakness - Musculoskeletal Musculoskeletal: right sided weakness - Psychiatric Psychiatric: A&O x's 3 Results CBC & Chem 7: 01/16/24 10:02 01/15/24 12:45 Labs: Abnormal Lab Results - Last 24 Hours (Table) 01/15/24 01/15/24 01/15/24 Range/Units 12:21 12:45 12:45 WBC 17.9 H (3.8-10.6) k/uL RBC 6.12 H (3.80-5.40) m/uL Hgb 19.3 H* (11.4-16.0) gm/dL Hct 60.9 H* (34.0-46.0) % RDW 17.5 H (11.5-15.5) % Plt Count 510 H (150-450) k/uL Neutrophils # 15.9 H (1.3-7.7) k/uL Lymphocytes # 0.8 L (1.0-4.8) k/uL Chloride 109 H (98-107) mmol/L Glucose 187 H (74-99) mg/dL POC Glucose (mg/dL) 196 H (70-110) mg/dL AST 60 H (14-36) U/L ALT 42 H (4-34) U/L CT Scan - head: report reviewed Assessment and Plan (1) Stroke-like symptoms Current Visit: Yes Status: Acute Priority: High Code(s): R29.90 - UNSPECIFIED SYMPTOMS AND SIGNS INVOLVING THE NERVOUS SYSTEM SNOMED Code(s): 256713918 (2) Lung cancer Current Visit: Yes Status: Acute Priority: High Code(s): C34.90 - MALIGNANT NEOPLASM OF UNSP PART OF UNSP BRONCHUS OR LUNG SNOMED Code(s): 297342867 Plan: JOSE parathesia: Presented to the emergency room with complaints of left upper extremity numbness and tingling. Patient denies any other acute changes or neurological deficits. Symptoms now resolved -Upon admit CT brain without contrast showed multiple focal areas of decreased density in the right parietal lobe and left temporal lobe. With no acute bleed or mass effect noted. CTA head and neck was subsequently obtained which showed no significant abnormality. No evidence of arterial occlusive disease within th e head or neck. -Neurology has been consulted. Keppra has been started and plan for EEG on Thursday. -Brain MRI on 12/09/2023 revealed evidence of disease progression with new brain lesions in addition to increased edema at the ewelina. She completed whole brain radiation with Dr. Shaikh 01/13/24. Symptoms may be r/t recent whole brain RT. Symptoms now have resolved. Will hold off on repeat Brain MRI at this time. Continue monitoring for acute neurological changes -Continue decadron 4mg QID Metastatic lung adenocarcinoma: -Oncology history and plan as dictated in HPI -Staging CT scans on 11/10/2023 revealed no evidence of recurrent or metastatic disease. Brain MRI on 12/09/2023 revealed evidence of disease progression with new brain lesions in addition to increased edema at the ewelina. She was increased to dexamethasone 4 times daily. She completed whole brain radiation with Dr. Shaikh 01/13/24. Given she has no evidence of disease progression systemically, it was recommended to continue dabrafenib/trametinib at 50 mg twice daily and 1 mg daily. -Can continue dabrafenib/trametinib inpatient -Treatment response scans scheduled for 01/31, with f/u with Dr. Naveed Lin on 02/07. F/u with Dr. Shaikh in 2 weeks
[2024-01-16] MEDS: OLANZapine 2.5 MG TAB PO SCH (21:54)
[2024-01-16] MEDS: METOPROLOL TARTRATE 25 MG TAB PO SCH (21:54)
[2024-01-16] MEDS: EZETIMIBE 10 MG TAB PO SCH (21:54)
[2024-01-16] MEDS: oxyBUTYnin chloride 5 MG TAB PO SCH (22:12)
[2024-01-17] MEDS: TAFINLAR PO SCH (03:56)
[2024-01-17] MEDS: TRAMETINIB DIMETHYL SULFOXIDE PO SCH ×2 (03:56→16:53)
[2024-01-17] MEDS ORDERED: TRAMETINIB DIMETHYL SULFOXIDE 0.5 MG PO SCH (04:00)
[2024-01-17] MEDS: PANTOPRAZOLE 40 MG/10 ML VIAL IVP SCH (08:25)
[2024-01-17] MEDS: lisinopriL 5 MG TAB PO SCH (08:25)
[2024-01-17] MEDS: ASPIRIN 81 MG PO SCH (08:25)
[2024-01-17] MEDS: ATORVASTATIN 80 MG TAB PO SCH (08:25)
--- NOTE | 2024-01-17 08:27 | P.HPIM ---
History of Present Illness H&P Date: 01/16/24 Chief Complaint: TIA/metastatic lung cancer to the brain HISTORY OF PRESENT ILLNESS: This is a 68-year-old female with a previous medical history significant for hypertension and hypertensive cardiovascular disease, hyperlipidemia, history of 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 Amado that was diagnosed back 03/20/2022 after she underwent flexible bronchoscopy with transbronchial biopsy and she was found to have metastatic adenocarcinoma of the lung to the lymph nodes, in the interim patient presented with ataxia to [facility] where she was found to have metastatic brain lesion in the ewelina with significant edema she was referred to [facility] was seen by neurosurgery and she was started by them on dexamethasone due to significant amount of edema, and then patient underwent NGS that was positive for BRAF and V680 and she was started on targeted therapy for that in the form of Tafinlar as well as Mekinist, she just finished 10 sessions of radiation therapy with Dr. Shaikh on January 13, 2024 patient was in her usual state of health at about yesterday when she developed to have a significant numbness in the left side of her arm and patient was concerned about it she was having some issues finding the words as well, therefore she was brought into the emergency department at [facility], had a CT scan of the brain did not show evidence of acute abnormalities, she had a CT angiography did not show evidence of any acute dissection or significant stenosis or aneurysm, neurology consultation was obtained but because of the brain metastatic lesion she was not a candidate for any intervention at this time, she was admitted to the hospital for evaluation by neurology she was seen by Dr. Vega who recommended for the patient to go on Keppra and EEG was done for evaluation of seizure, patient was admitted to the hospital for evaluation by hematology oncology as well. REVIEW OF SYSTEMS: Constitutional: No documented fever, no chills, no night sweats. No weight change. No weakness, fatigue or lethargy. No daytime sleepiness. EENT: positive for headache. No blurred vision positive for double vision, no loss of vision. No loss of Hearing, no ringing in the ears, positive for dizziness. No nasal drainage or congestion. No epistaxis. No sore throat. Lungs: No shortness of breath, occasional cough, no sputum production. No wheezing. Reports dyspnea with activity. Cardiovascular: No chest pain, no lower extremity edema. No palpitations. No paroxysmal nocturnal dyspnea. No orthopnea. No lightheadedness or dizziness. No syncopal episodes. Abdominal: Reports abdominal pain. positive for nausea,no vomiting. No diarrhea. No constipation. No bloody or tarry stools reports loss of appetite. Genitourinary: No dysuria, increased frequency, urgency. No urinary retention. Musculoskeletal: No myalgias. positive for muscle weakness, positive for gait dysfunction, positive for frequent falls. No back pain. positive for neck pain. Integumentary: No wounds, no lesions. No rash or pruritus. No unusual bruising. No change in hair or nails. Neurologic: No aphasia. No facial droop. No change in mentation. No head injury. positive for headache.positive or paralysis. positive for paresthesia. Psychiatric: No depression. No anxiety. No mood swings. Endocrine: No abnormal blood sugars. No weight change. PAST MEDICAL HISTORY: Hypertension and hypertensive cardiovascular disease. Mixed hyperlipidemia. 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 Overactive bladder. GERD. Thyroid nodule. Coronary artery disease. PAST SURGICAL HISTORY: Partial hysterectomy. Right thyroidectomy. Bronchoscopy with transbronchial biopsy March 2022 Left heart catheterization with PCI April 2020. SOCIAL HISTORY: Patient used to smoke about a pack every day since she was a teenager, and she quit more than 20 years ago, she denies any alcohol ingestion, she denies any drug use or abuse. FAMILY HISTORY: Father at the age of 61 from lung cancer mother is still alive 90-year-old with history of hypertension CVA and hyperlipidemia patient has 1 sister 67-year-old with diabetes mellitus type 2, hyperlipidemia, patient has 1 daughter 41-year-old with diabetes mellitus type 2, paternal grandfather from [place] paternal grandmother from an [place] maternal grandfather from heart disease as well maternal grandmother from old age. PHYSICAL EXAMINATION: General: 68-year-old female laying down in bed in no apparent distress HEENT: Head is atraumatic, normocephalic, disconjugate gaze with nystagmus, sclera nonicteric, conjunctivae were pale, mucous membranes of the mouth are somewhat dry. Neck: Supple, no JVP, normal carotid upstroke bilaterally, no lymphadenopathy. Chest: Decreased breath sounds at the bases, few rhonchi, no expiratory wheezes, no chest wall tenderness, no intercostal retractions. Heart: First heart sound is normal, second heart sounds normal there is no gallop or murmur. Abdomen: Soft, nontender, nondistended, positive bowel sounds. Extremities: There is no edema no calf tenderness DP +2 bilaterally. Neurologic examination: Patient is awake alert and oriented x3, cranial nerves III-12 appear grossly intact, right-sided weakness with right foot drop, conjugated gaze. Nystagmus ASSESSMENT AND PLAN: 1. Left upper extremity numbness suggestive of TIA rule out CVA could be related to underlying metastatic disease of the brain. Patient was seen in consultation by neurology, patient was started on Keppra 500 mg every week every 12 hours, I will start the patient on Decadron 4 mg IV push every 6 hours, she did receive 10 mg of Decadron in the ER, we will consult hematology oncology, we will follow-up with the patient very closely. Patient is not a candidate for any intervention at this point in time 2. Hypertension and hypertensive cardiovascular disease. Referral 5 mg orally once every day, metoprolol 25 mg orally twice every day monitor the patient blood pressure very closely 3. Mixed hyperlipidemia. Continue patient on atorvastatin 80 mg once every day, Zetia 10 mg once every day, monitor the patient lipid panel, keep LDL 55- 70. 4. Disease status post PCI in 04/28/2020. Continue patient on aspirin 80 mg once every day, metoprolol 25 mg orally twice every day, atorvastatin 80 mg once every day, Zetia 10 mg once every day. Patient does not have any unstable angina or congestive heart failure at this time. 5. Overactive bladder. Continue patient on oxybutynin 5 mg orally twice every day. 6. 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 Continue patient on Tafinlar and Mekinist otology oncology consultation. Patient just finished 10 sessions of radiation therapy for the whole brain on 01/13/2024 7. Polycythemia vera. Patient was started on aspirin 80 mg once every day 9. Intractable nausea likely due to her medication side effect. Continue olanzapine 2.5 mg orally once every day. 9. DVT prophylaxis. Bilateral knee-high YIMI hose, discontinue Lovenox for now. 10. GI prophylaxis. Continue patient on Protonix 40 mg IV push every 24 hours. 11. Admit to inpatient. Estimated length of stay 2 midnights. 12. Full code Past Medical History Past Medical History: Cancer, Hyperlipidemia, Thyroid Disorder Additional Past Medical History / Comment(s): previously 3 nodules on right side, Lung CA, Brain CA History of Any Multi-Drug Resistant Organisms: None Reported Past Surgical History: Hysterectomy Additional Past Surgical History / Comment(s): previous thyroidectomy - right side. Past Anesthesia/Blood Transfusion Reactions: No Reported Reaction Past Psychological History: No Psychological Hx Reported Smoking Status: Former smoker Past Alcohol Use History: Occasional Past Drug Use History: None Reported - Past Family History Father Family Medical History: Cancer, Hearing Disorder / Deafness Additional Family Medical History / Comment(s): lung Medications and Allergies Home Medications Medication Instructions Recorded Confirmed Type Metoprolol Tartrate [Lopressor] 25 mg PO BID 30 Days #60 tab 12/26/20 01/15/24 Rx Ezetimibe [Zetia] 10 mg PO HS 03/15/22 01/15/24 History OLANZapine [ZyPREXA] 2.5 mg PO HS 09/12/22 01/15/24 History Tafinlar 50mg 50 mg PO BID@0400,1600 09/12/22 01/15/24 History Trametinib Dimethyl Sulfoxide 1.5 mg PO DAILY@0400 09/12/22 01/15/24 History [Mekinist] Atorvastatin [Lipitor] 80 mg PO DAILY 01/15/24 01/15/24 History dexAMETHasone [Decadron] See Taper PO DIRECTED 01/15/24 01/15/24 History lisinopriL [Zestril] 5 mg PO DAILY 01/15/24 01/15/24 History oxyBUTYnin chloride [Ditropan] 5 mg PO BID 01/15/24 01/15/24 History Allergies Allergy/AdvReac Type Severity Reaction Status Date / Time No Known Allergies Allergy Verified 01/15/24 16:21 Physical Exam Vitals: Vital Signs Pulse Resp BP Pulse Ox 01/16/24 13:00 77 16 90/54 94 L 01/16/24 10:53 79 17 98/76 99 01/16/24 04:00 65 16 118/69 97 01/16/24 02:00 68 18 107/69 01/16/24 00:00 68 18 90/67 96 01/15/24 22:06 78 18 97/65 97 01/15/24 18:12 63 20 97/66 96 01/15/24 17:12 72 20 104/63 96 01/15/24 17:00 65 20 104/63 98 01/15/24 16:00 68 20 118/98 96 Results CBC & Chem 7: 01/16/24 10:02 01/15/24 12:45 Labs: Abnormal Lab Results - Last 24 Hours (Table) 01/16/24 Range/Units 10:02 WBC 17.1 H (3.8-10.6) k/uL RBC 5.51 H (3.80-5.40) m/uL Hgb 17.4 H (11.4-16.0) gm/dL Hct 56.1 H (34.0-46.0) % MCV 101.8 H (80.0-100.0) fL RDW 16.8 H (11.5-15.5) % Neutrophils # 15.2 H (1.3-7.7) k/uL
[2024-01-17] MEDS ORDERED: ENOXAPARIN 40 MG/0.4 ML SYRINGE SQ SCH (09:00)
[2024-01-17 10:17] LABS: Basophils # (A) 0.03 X 10*3/uL (0.00-0.10); Basophils % (A) 0.2 %; Eosinophils # (A) 0.02 X 10*3/uL (0.04-0.35); Eosinophils % (A) 0.1 %; HCT 54.1 % (37.2-46.3); HGB 16.6 g/dL (12.0-15.0); Lymphocytes # (A) 0.73 X 10*3/uL (0.90-5.00); Lymphocytes % (A) 4.8 %; MCH 31.1 pg (27.0-32.0); MCHC 30.7 g/dL (32.0-37.0); MCV 101.5 FL (80.0-97.0); Mean Platelet Volume 10.3 FL (9.5-12.2); Monocytes # (A) 0.23 X 10*3/uL (0.20-1.00); Monocytes % (A) 1.5 %; NRBC Per 100 WBC 0 X 10*3/uL (0.00-0.01); Neutrophils # (A) 14.13 X 10*3/uL (1.80-7.70); Neutrophils % (A) 92.5 %; Platelet Count 389 X 10*3/uL (140-440); RBC 5.33 X 10*6/uL (4.10-5.20); RDW 18.7 % (11.5-14.5); WBC 15.27 X 10*3/uL (4.50-10.00)
--- NOTE | 2024-01-17 12:44 | P.PN ---
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 Amado that was diagnosed back 03/20/2022 after she underwent flexible bronchoscopy with transbronchial biopsy and she was found to have metastatic adenocarcinoma of the lung to the lymph nodes, in the interim patient presented with ataxia to [facility] where she was found to have metastatic brain lesion in the ewelina with significant edema she was referred to [facility] was seen by neurosurgery and she was started by them on dexamethasone due to significant amount of edema, and then patient underwent NGS that was positive for BRAF and V680 and she was started on targeted therapy for that in the form of Tafinlar as well as Mekinist, she just finished 10 sessions of radiation therapy with Dr. Shaikh on January 13, 2024 patient was in her usual state of health at about yesterday when she developed to have a significant numbness in the left side of her arm and patient was concerned about it she was having some issues finding the words as well, therefore she was brought into the emergency department at [facility], had a CT scan of the brain did not show evidence of acute abnormalities, she had a CT angiography did not show evidence of any acute dissection or significant stenosis or aneurysm, neurology consultation was obtained but because of the brain metastatic lesion she was not a candidate for any intervention at this time, she was admitted to the hospital for evaluation by neurology she was seen by Dr. Vega who recommended for the patient to go on Keppra and EEG was done for evaluation of seizure, patient was admitted to the hospital for evaluation by hematology oncology as well. 01/16: Patient is feeling better today, she denies any headache at this time, she denies any chest pain or any shortness of breath at this time, her was at the bedside, she is started on Keppra 500 mg orally twice every day, she is scheduled to go for an EEG tomorrow morning, if her EEG is negative patient can be discharged home tomorrow morning follow-up with her oncologist as an outpatient. REVIEW OF SYSTEMS: Constitutional: No documented fever, no chills, no night sweats. No weight change. No weakness, fatigue or lethargy. No daytime sleepiness. EENT: positive for headache. No blurred vision positive for double vision, no loss of vision. No loss of Hearing, no ringing in the ears, positive for dizziness. No nasal drainage or congestion. No epistaxis. No sore throat. Lungs: No shortness of breath, occasional cough, no sputum production. No wh eezing. Reports dyspnea with activity. Cardiovascular: No chest pain, no lower extremity edema. No palpitations. No paroxysmal nocturnal dyspnea. No orthopnea. No lightheadedness or dizziness. No syncopal episodes. Abdominal: Reports abdominal pain. positive for nausea,no vomiting. No diarr hea. No constipation. No bloody or tarry stools reports loss of appetite. Genitourinary: No dysuria, increased frequency, urgency. No urinary retention. Musculoskeletal: No myalgias. positive for muscle weakness, positive for gait dysfunction, positive for frequent falls. No back pain. positive for neck pain. Integumentary: No wounds, no lesions. No rash or pruritus. No unusual bruising. No change in hair or nails. Neurologic: No aphasia. No facial droop. No change in mentation. No head injury. positive for headache.positive or paralysis. positive for paresthesia. Psychiatric: No depression. No anxiety. No mood swings. Endocrine: No abnormal blood sugars. No weight change. PHYSICAL EXAMINATION: General: 68-year-old female laying down in bed in no apparent distress HEENT: Head is atraumatic, normocephalic, disconjugate gaze with nystagmus, sclera nonicteric, conjunctivae were pale, mucous membranes of the mouth are somewhat dry. Neck: Supple, no JVP, normal carotid upstroke bilaterally, no lymphadenopathy. Chest: Decreased breath sounds at the bases, few rhonchi, no expiratory wheezes, no chest wall tenderness, no intercostal retractions. Heart: First heart sound is normal, second heart sounds normal there is no gallop or murmur. Abdomen: Soft, nontender, nondistended, positive bowel sounds. Extremities: There is no edema no calf tenderness DP +2 bilaterally. Neurologic examination: Patient is awake alert and oriented x3, cranial nerves III-12 appear grossly intact, right-sided weakness with right foot drop, conjugated gaze. Nystagmus ASSESSMENT AND PLAN: 1. Left upper extremity numbness suggestive of TIA rule out CVA less likely but most likely related to underlying metastatic disease of the brain. Patient was seen in consultation by neurology, patient was started on Keppra 500 mg every week every 12 hours, continue Decadron 4 mg IV push every 6 hours, continue aspirin 81 mg once every day, continue atorvastatin 80 mg once every da y, monitor the patient's symptoms very closely. 2. Hypertension and hypertensive cardiovascular disease. Lisinopril 5 mg orally once every day, metoprolol 25 mg orally twice every day monitor the p atient blood pressure very closely 3. Mixed hyperlipidemia. Continue patient on atorvastatin 80 mg once every day, Zetia 10 mg once every day, monitor the patient lipid panel, keep LDL 55- 70. 4. Disease status post PCI in 04/28/2020. Continue patient on aspirin 81 mg once every day, metoprolol 25 mg orally twice every day, atorvastatin 80 mg once every day, Zetia 10 mg once every day. Patient does not have any unstable angina or congestive heart failure at this time. 5. Overactive bladder. Continue patient on oxybutynin 5 mg orally twice every day. 6. 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 Continue patient on Tafinlar and Mekinist otology oncology consultation. Patient just finished 10 sessions of radiation therapy for the whole brain on 01/13/2024 7. Polycythemia vera. Patient was started on aspirin 81 mg once every day 9. Intractable nausea likely due to her medication side effect. Continue olanzapine 2.5 mg orally once every day. 9. DVT prophylaxis. Bilateral knee-high YIMI hose, hold off Lovenox for now. 10. GI prophylaxis. Continue patient on Protonix 40 mg IV push every 24 hours. 11. Physical therapy evaluation tomorrow morning. 12. washtub worker helper consultation for discharge planning. Objective - Vital Signs Vital signs: Vital Signs Temp 97.6 F 01/17/24 07:10 Pulse 70 01/17/24 07:10 Resp 16 01/17/24 07:10 BP 123/72 01/17/24 07:10 Pulse Ox 96 01/17/24 07:10 FiO2 Intake & Output 01/16/24 01/17/24 01/17/24 18:59 06:59 18:59 Intake Total 60 240 Balance 60 240 Weight 66.224 kg Intake: Oral 60 240 Other: Voiding Method External Catheter - Labs CBC & Chem 7: 01/17/24 05:22 01/15/24 12:45 Labs: Abnormal Lab Results - Last 24 Hours (Table) 01/16/24 Range/Units 10:02 WBC 17.1 H (3.8-10.6) k/uL RBC 5.51 H (3.80-5.40) m/uL Hgb 17.4 H (11.4-16.0) gm/dL Hct 56.1 H (34.0-46.0) % MCV 101.8 H (80.0-100.0) fL RDW 16.8 H (11.5-15.5) % Neutrophils # 15.2 H (1.3-7.7) k/uL
[2024-01-17 13:53] LABS: ALT 32 U/L (8-44); AST 61 U/L (13-35); Albumin 3.2 g/dL (3.8-4.9); Alkaline Phosphatase 111 U/L (41-126); BUN/Creat Ratio 16.43 Ratio (12.00-20.00); Blood Urea Nitrogen 11.5 mg/dL (9.0-27.0); Calcium 8.2 mg/dL (8.7-10.3); Chloride 115 mmol/L (96-109); Glucose 88 mg/dL (70-110); Sodium 145 mmol/L (135-145); Total Bilirubin 0.5 mg/dL (0.3-1.2); Total Protein 5.2 g/dL (6.2-8.2)
--- NOTE | 2024-01-17 16:06 | P.PN ---
Subjective Progress Note Date: 01/17/24 Following up with the patient and she states that she does not have any further numbness or tingling on the left side. No new new neurological issues. Objective - Vital Signs Vital signs: Vital Signs Temp 97.9 F 01/17/24 12:51 Pulse 66 01/17/24 12:51 Resp 17 01/17/24 12:51 BP 109/69 01/17/24 12:51 Pulse Ox 98 01/17/24 12:51 FiO2 Intake & Output 01/16/24 01/17/24 01/17/24 18:59 06:59 18:59 Intake Total 60 480 Balance 60 480 Weight 66.224 kg Intake: Oral 60 480 Other: Voiding Method External Catheter External Catheter - Exam General: Lying in bed and is not in acute distress. Neuro: Awake alert oriented to self place and time. Is following simple commands. Patient has expressive aphasia. Pupils are round equal reactive to light. Visual killian are full to confrontation. Extraocular movement is patient has restriction movement of the left eye looking to the left and when she looks to the left she has nystagmus on the right eye. Patient has right lower facial weakness. Has moderate dysarthria. Tongue is midline move [id number] without difficulty Motor the strength in the right upper extremity is very limited and has significant weakness proximal while distal is about maybe 2-3 and more like a 2. Lower extremity is about a 0. Left upper lower extremity is about a 4-4+. Sensation feels normal to touch throughout. The plantar is upgoing on the right. Mute on the left Some of the workup during this hospital visit consisted of: Hemoglobin is 19.3 hematocrit 60.9 AST 60 and ALT is 42 I reviewed the rest of the lab workup next CT of the head is read as multiple focal area of decreased density in the right parietal lobe and left temporal lobe. The findings are likely related to metastatic disease. No acute bleed or mass effect. Personally reviewed the CT and I do agree the patient has multiple metastatic lesions with vasogenic edema. CT angiography of the head and neck is reported as no significant abnormality seen. No evidence of arterial occlusion disease in the head or neck. - Labs CBC & Chem 7: 01/17/24 05:22 01/17/24 05:22 Labs: Abnormal Lab Results - Last 24 Hours (Table) 01/17/24 01/17/24 Range/Units 05:22 05:22 WBC 15.27 H (4.50-10.00) X 10*3/uL RBC 5.33 H (4.10-5.20) X 10*6/uL Hgb 16.6 H (12.0-15.0) g/dL Hct 54.1 H (37.2-46.3) % MCV 101.5 H (80.0-97.0) FL MCHC 30.7 L (32.0-37.0) g/dL RDW 18.7 H (11.5-14.5) % Immature Gran # 0.13 H (0.00-0.04) X 10*3/uL Neutrophils # 14.13 H (1.80-7.70) X 10*3/uL Lymphocytes # 0.73 L (0.90-5.00) X 10*3/uL Eosinophils # 0.02 L (0.04-0.35) X 10*3/uL Chloride 115 H (96-109) mmol/L Carbon Dioxide 16.0 L (21.6-31.8) mmol/L Anion Gap 14.00 H (4.00-12.00) mmol/L Calcium 8.2 L (8.7-10.3) mg/dL AST 61 H (13-35) U/L Total Protein 5.2 L (6.2-8.2) g/dL Albumin 3.2 L (3.8-4.9) g/dL Assessment and Plan Assessment: This is a 68-year-old woman with history of lung cancer with metastasis to the brain over bilateral hemisphere as well as brainstem with residual significant right hemiparesis, dysarthria, expressive aphasia who presented emergency department on 01/15/2024 because the left upper extremity numbness. Had a recent MRI of the brain about a month ago which shows progression of her metastatic lesion from her prior MRI. Numbness over the left side I feel is more due to cortical irritability from her brain mets causing likely focal seizure without loss of consciousness. History of lung cancer with breast mets to the brain and the patient has completed her 10th round of radiation this past week and she is on oral chemotherapy residual significant right hemiparesis, expressive aphasia, dysarthria as well as has left lateral rectus palsy. Has vasogenic edema due to above. Plan: I started the patient on Keppra 500 mg every 12 hours because of concern focal seizure without loss of consciousness. Pending routine EEG. Spoke with the oncology team and notified them from my side no need to pursue MRI since she had one about a month ago and my concern is her cortical irritab ility from the brain mets and they agreed to hold off with MRI as an inpatient Recommend Decadron but will leave that decision to the oncology team Seizure precautions seizure pads Will defer the rest of the medical management to primary and other specialist Plan discussed with the patient primary attending. Dr. Saldana will resume neurology service on 01/18/2024 A.M. Time with Patient: Less than 30
[2024-01-18 05:04] LABS: Anisocytosis Slight; HGB 17.4 gm/dL (11.4-16.0); Hypochromasia Slight; MCH 31.9 pg (25.0-35.0); MCHC 31.6 g/dL (31.0-37.0); MCV 100.7 fL (80.0-100.0); Macrocytosis Slight; Mean Platelet Volume 8.5; Platelet Count 399 k/uL (150-450); RBC 5.46 m/uL (3.80-5.40); RDW 17.4 % (11.5-15.5); WBC 18.8 k/uL (3.8-10.6)
[2024-01-18 05:28] LABS: Band Neutrophils % 12 %; Lymphocytes # (M) 0.75 k/uL (1.0-4.8); Monocytes # (M) 0.19 k/uL (0-1.0); Neutrophils % (M) 83 %; Nucleated Red Blood Cells 0 /100 WBC (0-0); Total Cells Counted 100
[2024-01-18 05:29] LABS: Ovalocytes Present
[2024-01-18 08:04] LABS: ALT 26 U/L (4-34); African American GFR (CKD) >90 (>60 ml/min/1.73 sqM); Albumin 2.7 g/dL (3.5-5.0); Albumin/Globulin Ratio 1.1; Anion Gap 5 mmol/L; Blood Urea Nitrogen 12 mg/dL (7-17); Calcium 7.9 mg/dL (8.4-10.2); Carbon Dioxide 19 mmol/L (22-30); Chloride 118 mmol/L (98-107); Globulin 2.4 g/dL; Glucose 147 mg/dL (74-99); Non-African American GFR(CKD) >90 (>60 ml/min/1.73 sqM); Sodium 142 mmol/L (137-145); Total Bilirubin 0.6 mg/dL (0.2-1.3); Total Protein 5.1 g/dL (6.3-8.2)
[2024-01-18 08:14] LABS: Potassium 4.1 mmol/L (3.5-5.1)
[2024-01-18 08:15] LABS: AST 36 U/L (14-36); Alkaline Phosphatase 96 U/L (38-126)
[2024-01-18] MEDS: polyethylene glycoL 3350 17 GM POWD.PACK PO SCH (15:45)
[2024-01-18] MEDS: DOCUSATE 100 MG CAP PO SCH (15:45)
--- NOTE | 2024-01-18 18:03 | P.PN ---
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 Amado that was diagnosed back 03/20/2022 after she underwent flexible bronchoscopy with transbronchial biopsy and she was found to have metastatic adenocarcinoma of the lung to the lymph nodes, in the interim patient presented with ataxia to [facility] where she was found to have metastatic brain lesion in the ewelina with significant edema she was referred to [facility] was seen by neurosurgery and she was started by them on dexamethasone due to significant amount of edema, and then patient underwent NGS that was positive for BRAF and V680 and she was started on targeted therapy for that in the form of Tafinlar as well as Mekinist, she just finished 10 sessions of radiation therapy with Dr. Shaikh on January 13, 2024 patient was in her usual state of health at about yesterday when she developed to have a significant numbness in the left side of her arm and patient was concerned about it she was having some issues finding the words as well, therefore she was brought into the emergency department at [facility], had a CT scan of the brain did not show evidence of acute abnormalities, she had a CT angiography did not show evidence of any acute dissection or significant stenosis or aneurysm, neurology consultation was obtained but because of the brain metastatic lesion she was not a candidate for any intervention at this time, she was admitted to the hospital for evaluation by neurology she was seen by Dr. Vega who recommended for the patient to go on Keppra and EEG was done for evaluation of seizure, patient was admitted to the hospital for evaluation by hematology oncology as well. 01/16: Patient is feeling better today, she denies any headache at this time, she denies any chest pain or any shortness of breath at this time, her was at the bedside, she is started on Keppra 500 mg orally twice every day, she is scheduled to go for an EEG tomorrow morning, if her EEG is negative patient can be discharged home tomorrow morning follow-up with her oncologist as an outpatient. 01/17: Turns laying down in bed in no apparent distress, she is eating her breakfast, she has no difficulty swallowing, she has no chest pain or shortness of breath, she has no abdominal pain, she has no headache in the morning, she is scheduled to go for an EEG today, still pending at the time of dictation, patient will be seen and evaluated by physical therapy, for possible subacute rehabilitation. REVIEW OF SYSTEMS: Constitutional: No documented fever, no chills, no night sweats. No weight change. No weakness, fatigue or lethargy. No daytime sleepiness. EENT: positive for headache. No blurred vision positive for double vision, no loss of vision. No loss of Hearing, no ringing in the ears, positive for dizziness. No nasal drainage or congestion. No epistaxis. No sore throat. Lungs: No shortness of breath, occasional cough, no sputum production. No wheezing. Reports dyspnea with activity. Cardiovascular: No chest pain, no lower extremity edema. No palpitations. No paroxysmal nocturnal dyspnea. No orthopnea. No lightheadedness or dizziness. No syncopal episodes. Abdominal: Reports abdominal pain. positive for nausea,no vomiting. No diarrhea. No constipation. No bloody or tarry stools reports loss of appetite. Genitourinary: No dysuria, increased frequency, urgency. No urinary retention. Musculoskeletal: No myalgias. positive for muscle weakness, positive for gait dysfunction, positive for frequent falls. No back pain. positive for neck pain. Integumentary: No wounds, no lesions. No rash or pruritus. No unusual bruisi ng. No change in hair or nails. Neurologic: No aphasia. No facial droop. No change in mentation. No head injury. positive for headache.positive or paralysis. positive for paresthesia. Psychiatric: No depression. No anxiety. No mood swings. Endocrine: No abnormal blood sugars. No weight change. PHYSICAL EXAMINATION: General: 68-year-old female laying down in bed in no apparent distress HEENT: Head is atraumatic, normocephalic, disconjugate gaze with nystagmus, sclera nonicteric, conjunctivae were pale, mucous membranes of the mouth are somewhat dry. Neck: Supple, no JVP, normal carotid upstroke bilaterally, no lymphadenopathy. Chest: Decreased breath sounds at the bases, few rhonchi, no expiratory wheezes, no chest wall tenderness, no intercostal retractions. Heart: First heart sound is normal, second heart sounds normal there is no gallop or murmur. Abdomen: Soft, nontender, nondistended, positive bowel sounds. Extremities: There is no edema no calf tenderness DP +2 bilaterally. Neurologic examination: Patient is awake alert and oriented x3, cranial nerves III-12 appear grossly intact, right-sided weakness with right foot drop, conjugated gaze. Nystagmus ASSESSMENT AND PLAN: 1. Left upper extremity numbness suggestive of TIA rule out CVA less likely but most likely related to underlying metastatic disease of the brain. Patient was seen in consultation by neurology, patient was started on Keppra 500 mg every week every 12 hours, continue Decadron 4 mg IV push every 6 hours, continue aspirin 81 mg once every day, continue atorvastatin 80 mg once every day, monitor the patient's symptoms very closely. 2. Hypertension and hypertensive cardiovascular disease. Lisinopril 5 mg orally once every day, metoprolol 25 mg orally twice every day monitor the patient blood pressure very closely 3. Mixed hyperlipidemia. Continue patient on atorvastatin 80 mg once every day, Zetia 10 mg once every day, monitor the patient lipid panel, keep LDL 55- 70. 4. Disease status post PCI in 04/28/2020. Continue patient on aspirin 81 mg once every day, metoprolol 25 mg orally twice every day, atorvastatin 80 mg once every day, Zetia 10 mg once every day. Patient does not have any unstable angina or congestive heart failure at this time. 5. Overactive bladder. Continue patient on oxybutynin 5 mg orally twice every day. 6. 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 Continue patient on Tafinlar and Mekinist otology oncology consultation. Patient just finished 10 sessions of radiation therapy for the whole brain on 01/13/2024 7. Polycythemia vera. Patient was started on aspirin 81 mg once every day 9. Intractable nausea likely due to her medication side effect. Continue olanzapine 2.5 mg orally once every day. 9. DVT prophylaxis. Bilateral knee-high YIMI hose, hold off Lovenox for now. 10. GI prophylaxis. Continue patient on Protonix 40 mg IV push every 24 hours. 11. Physical therapy evaluation tomorrow morning. 12. compound worker consultation for discharge planning. Objective - Vital Signs Vital signs: Vital Signs Temp 97.8 F 01/18/24 07:47 Pulse 58 L 01/18/24 07:47 Resp 16 11/11/24 07:47 BP 136/74 01/18/24 07:47 Pulse Ox 96 01/18/24 07:47 FiO2 Intake & Output 01/17/24 01/18/24 01/18/24 18:59 06:59 18:59 Intake Total 1917 590 Output Total 700 Balance 1918 -110 Intake: Oral 1917 590 Output: Urine 700 Other: Voiding Method External Catheter External Catheter External Catheter # Voids 3 1 # Bowel Movements 1 - Labs CBC & Chem 7: 01/18/24 04:33 01/18/24 06:54 Labs: Abnormal Lab Results - Last 24 Hours (Table) 01/17/24 01/18/24 01/18/24 Range/Units 05:22 04:33 06:54 WBC 18.8 H (3.8-10.6) k/uL RBC 5.46 H (3.80-5.40) m/uL Hgb 17.4 H (11.4-16.0) gm/dL Hct 55.0 H (34.0-46.0) % MCV 100.7 H (80.0-100.0) fL RDW 17.4 H (11.5-15.5) % Neutrophils # (Manual) 17.80 H (1.3-7.7) k/uL Lymphocytes # (Manual) 0.75 L (1.0-4.8) k/uL Chloride 115 H 118 H (96-109) mmol/L Carbon Dioxide 16.0 L 19 L (21.6-31.8) mmol/L Anion Gap 14.00 H (4.00-12.00) mmol/L Creatinine 0.51 L (0.52-1.04) mg/dL Glucose 147 H (74-99) mg/dL Calcium 8.2 L 7.9 L (8.7-10.3) mg/dL AST 61 H (13-35) U/L Total Protein 5.2 L 5.1 L (6.2-8.2) g/dL Albumin 3.2 L 2.7 L (3.8-4.9) g/dL
[2024-01-18] MEDS: DEXAMETHASONE SOD PHOSPHATE 4 MG/ML 1 ML VIAL IVP SCH (20:54)
--- NOTE | 2024-01-19 00:09 | EEG ---
ELECTROENCEPHALOGRAM REPORT PREAMBLE: This is a 68-year-old female with left-sided numbness, rule out seizure. The patient has history of lung cancer. CURRENT MEDICATIONS: 1. Lipitor. 2. Keppra. 3. Lopressor. 4. Decadron. 5. Ditropan. 6. Protonix. EEG FINDINGS: This is a 21-channel digital EEG recorded with video component, utilizing 10/20 international system with referential and bipolar montages. Background consists of moderately well-developed and regulated, mixed frequencies of some well-formed 8 hertz alpha, intermixed with some theta and some fast frequency beta activity seen in bihemispheric region. Background seems to be minimally reactive to eye opening and closing. Different stages of sleep were not seen. No focal or generalized epileptiform activity was seen. IMPRESSION: This is an abnormal EEG due to slight background disorganization with the presence of mixed fast and slow frequency activity, suggestive of mild encephalopathy or medication effect. No focal, lateralized, or epileptiform activity was seen. MMODL / IJN: [id number] /
[2024-01-19 09:41] LABS: ALT 33 U/L (8-44); AST 49 U/L (13-35); Albumin 3.3 g/dL (3.8-4.9); Albumin/Globulin Ratio 1.83 Ratio (1.60-3.17); Alkaline Phosphatase 121 U/L (41-126); Blood Urea Nitrogen 10.5 mg/dL (9.0-27.0); Calcium 8.2 mg/dL (8.7-10.3); Carbon Dioxide 17.4 mmol/L (21.6-31.8); Chloride 117 mmol/L (96-109); Globulin 1.8 g/dL (1.6-3.3); Glucose 143 mg/dL (70-110); Potassium 4.4 mmol/L (3.5-5.5); Sodium 145 mmol/L (135-145); Total Bilirubin 0.3 mg/dL (0.3-1.2); Total Protein 5.1 g/dL (6.2-8.2)
[2024-01-19 12:09] LABS: Basophils # (A) 0.05 X 10*3/uL (0.00-0.10); Basophils % (A) 0.3 %; Eosinophils # (A) 0.11 X 10*3/uL (0.04-0.35); Eosinophils % (A) 0.7 %; HGB 17.9 g/dL (12.0-15.0); Lymphocytes % (A) 7.2 %; MCH 32.3 pg (27.0-32.0); MCHC 31.4 g/dL (32.0-37.0); MCV 102.9 FL (80.0-97.0); Mean Platelet Volume 10.3 FL (9.5-12.2); Monocytes # (A) 0.49 X 10*3/uL (0.20-1.00); Monocytes % (A) 3.2 %; NRBC Per 100 WBC 0 X 10*3/uL (0.00-0.01); Neutrophils % (A) 87.7 %; Platelet Count 379 X 10*3/uL (140-440); RBC 5.54 X 10*6/uL (4.10-5.20); RDW 19.1 % (11.5-14.5); WBC 15.28 X 10*3/uL (4.50-10.00)
[2024-01-19] MEDS: TRAMETINIB PO SCH (15:48)
--- NOTE | 2024-01-19 16:35 | P.PN ---
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 Amado that was diagnosed back 03/20/2022 after she underwent flexible bronchoscopy with transbronchial biopsy and she was found to have metastatic adenocarcinoma of the lung to the lymph nodes, in the interim patient presented with ataxia to [facility] where she was found to have metastatic brain lesion in the ewelina with significant edema she was referred to [facility] was seen by neurosurgery and she was started by them on dexamethasone due to significant amount of edema, and then patient underwent NGS that was positive for BRAF and V680 and she was started on targeted therapy for that in the form of Tafinlar as well as Mekinist, she just finished 10 sessions of radiation therapy with Dr. Shaikh on January 13, 2024 patient was in her usual state of health at about yesterday when she developed to have a significant numbness in the left side of her arm and patient was concerned about it she was having some issues finding the words as well, therefore she was brought into the emergency department at [facility], had a CT scan of the brain did not show evidence of acute abnormalities, she had a CT angiography did not show evidence of any acute dissection or significant stenosis or aneurysm, neurology consultation was obtained but because of the brain metastatic lesion she was not a candidate for any intervention at this time, she was admitted to the hospital for evaluation by neurology she was seen by Dr. Vega who recommended for the patient to go on Keppra and EEG was done for evaluation of seizure, patient was admitted to the hospital for evaluation by hematology oncology as well. 01/16: Patient is feeling better today, she denies any headache at this time, she denies any chest pain or any shortness of breath at this time, her was at the bedside, she is started on Keppra 500 mg orally twice every day, she is scheduled to go for an EEG tomorrow morning, if her EEG is negative patient can be discharged home tomorrow morning follow-up with her oncologist as an outpatient. 01/17: Turns laying down in bed in no apparent distress, she is eating her breakfast, she has no difficulty swallowing, she has no chest pain or shortness of breath, she has no abdominal pain, she has no headache in the morning, she is scheduled to go for an EEG today, still pending at the time of dictation, patient will be seen and evaluated by physical therapy, for possible subacute rehabilitation. 01/18: Patient is sitting up in the chair appears to be quite emotional, she was ambulating with a walker with her AFO brace to the right lower extremity with the physical therapist today, patient is aware of the prognosis at this point in time, she continues to have some vasogenic edema around the metastatic lesion in the brain, I will decrease her Decadron to 4 mg orally twice every day, patient is to be maintained on current treatment plan, patient will benefit from subacute rehabilitation at [facility], we will discuss with oncology team whether or not the patient can come off her medication since that scan to be an issue for her to go to [facility]. REVIEW OF SYSTEMS: Constitutional: No documented fever, no chills, no night sweats. No weight change. No weakness, fatigue or lethargy. No daytime sleepiness. EENT: positive for headache. No blurred vision positive for double vision, no loss of vision. No loss of Hearing, no ringing in the ears, positive for dizziness. No nasal drainage or congestion. No epistaxis. No sore throat. Lungs: No shortness of breath, occasional cough, no sputum production. No wheezing. Reports dyspnea with activity. Cardiovascular: No chest pain, no lower extremity edema. No palpitations. No paroxysmal nocturnal dyspnea. No orthopnea. No lightheadedness or dizziness. No syncopal episodes. Abdominal: Reports abdominal pain. positive for nausea,no vomiting. No diarrhea. No constipation. No bloody or tarry stools reports loss of appetite. Genitourinary: No dysuria, increased frequency, urgency. No urinary retention. Musculoskeletal: No myalgias. positive for muscle weakness, positive for gait dysfunction, positive for frequent falls. No back pain. positive for neck pa in. Integumentary: No wounds, no lesions. No rash or pruritus. No unusual bruising. No change in hair or nails. Neurologic: No aphasia. No facial droop. No change in mentation. No head injury. positive for headache.positive or paralysis. positive for paresthesia. Psychiatric: No depression. No anxiety. No mood swings. Endocrine: No abnormal blood sugars. No weight change. PHYSICAL EXAMINATION: General: 68-year-old female laying down in bed in no apparent distress HEENT: Head is atraumatic, normocephalic, disconjugate gaze with nystagmus, sclera nonicteric, conjunctivae were pale, mucous membranes of the mouth are somewhat dry. Neck: Supple, no JVP, normal carotid upstroke bilaterally, no lymphadenopathy. Chest: Decreased breath sounds at the bases, few rhonchi, no expiratory wheezes, no chest wall tenderness, no intercostal retractions. Heart: First heart sound is normal, second heart sounds normal there is no gallop or murmur. Abdomen: Soft, nontender, nondistended, positive bowel sounds. Extremities: There is no edema no calf tenderness DP +2 bilaterally. Neurologic examination: Patient is awake alert and oriented x3, cranial nerves III-12 appear grossly intact, right-sided weakness with right foot drop, conjugated gaze. Nystagmus ASSESSMENT AND PLAN: 1. Left upper extremity numbness suggestive of TIA rule out CVA less likely but most likely related to underlying metastatic disease of the brain. Patient was seen in consultation by neurology, patient was started on Keppra 500 mg every 12 hours, continue Decadron and decrease to 4 mg orally twice every day, continue aspirin 81 mg once every day, continue atorvastatin 80 mg orally once every day 2. Hypertension and hypertensive cardiovascular disease. Lisinopril 5 mg orally once every day, metoprolol 25 mg orally twice every day monitor the patient blood pressure very closely 3. Mixed hyperlipidemia. Continue patient on atorvastatin 80 mg once every day, Zetia 10 mg once every day, monitor the patient lipid panel, keep LDL 55- 70. 4. Disease status post PCI in 04/28/2020. Continue patient on aspirin 81 mg once every day, metoprolol 25 mg orally twice every day, atorvastatin 80 mg once every day, Zetia 10 mg once every day. Patient does not have any unstable angina or congestive heart failure at this time. 5. Overactive bladder. Continue patient on oxybutynin 5 mg orally twice every day. 6. 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 Continue patient on Tafinlar and Mekinist otology oncology consultation. Patient just finished 10 sessions of radiation therapy for the whole brain on 01/13/2024 7. Polycythemia vera. Patient was started on aspirin 81 mg once every day 9. Intractable nausea likely due to her medication side effect. Continue olanzapine 2.5 mg orally once every day. 9. DVT prophylaxis. Bilateral knee-high YIMI hose, hold off Lovenox for now. 10. GI prophylaxis. Continue patient on Protonix 40 mg orally once every day. 11. Physical therapy evaluation is in progress. 12. transfer worker consultation for discharge planning to [facility] on the [facility] tomorrow morning. Objective - Vital Signs Vital signs: Vital Signs Temp 97.5 F L 01/19/24 13:43 Pulse 70 01/19/24 13:43 Resp 16 01/19/24 13:43 BP 111/74 01/19/24 13:43 Pulse Ox 98 01/19/24 13:43 FiO2 Intake & Output 01/18/24 01/19/24 01/19/24 18:59 06:59 18:59 Intake Total 590 Output Total 700 Balance -110 Intake: Oral 590 Output: Urine 700 Other: Voiding Method External Catheter External Catheter # Voids 250 - Labs CBC & Chem 7: 01/19/24 04:24 01/19/24 04:24 Labs: Abnormal Lab Results - Last 24 Hours (Table) 01/19/24 01/19/24 Range/Units 04:24 04:24 WBC 15.28 H (4.50-10.00) X 10*3/uL RBC 5.54 H (4.10-5.20) X 10*6/uL Hgb 17.9 H (12.0-15.0) g/dL Hct 57.0 H (37.2-46.3) % MCV 102.9 H (80.0-97.0) FL MCH 32.3 H (27.0-32.0) pg MCHC 31.4 L (32.0-37.0) g/dL RDW 19.1 H (11.5-14.5) % Immature Gran # 0.13 H (0.00-0.04) X 10*3/uL Neutrophils # 13.40 H (1.80-7.70) X 10*3/uL Chloride 117 H (96-109) mmol/L Carbon Dioxide 17.4 L (21.6-31.8) mmol/L Glucose 143 H (70-110) mg/dL Calcium 8.2 L (8.7-10.3) mg/dL AST 49 H (13-35) U/L Total Protein 5.1 L (6.2-8.2) g/dL Albumin 3.3 L (3.8-4.9) g/dL
[2024-01-19] MEDS: dexAMETHasone 4 MG TAB PO SCH (20:57)
[2024-01-20 01:27] VITALS: RESP 18
[2024-01-20] MEDS: PANTOPRAZOLE 40 MG TABLET PO SCH (08:54)
--- NOTE | 2024-01-20 09:47 | P.DS ---
Providers Date of admission: 01/15/24 16:00 Expected date of discharge: 01/20/24 Attending physician: Papo Granadso Consults: 01/15/24 16:00 Consult Physician Routine Consulting Provider: Jose Ramon Lin Consult Reason/Comments: lung ca Do you want consulting provider notified?: Yes Consult Physician Routine Consulting Provider: Ady Vega Consult Reason/Comments: stroke like symptoms Do you want consulting provider notified?: Already Contacted [facility]: HISTORY OF PRESENT ILLNESS: This is a 68-year-old female with a previous medical history significant for hypertension and hypertensive cardiovascular disease, hyperlipidemia, history of 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 Amado that was diagnosed back 03/20/2022 after she underwent flexible bronchoscopy with transbronchial biopsy and she was found to have metastatic adenocarcinoma of the lung to the lymph nodes, in the interim patient presented with ataxia to [facility] where she was found to have metastatic brain lesion in the ewelina with significant edema she was referred to [facility] was seen by neurosurgery and she was started by them on dexamethasone due to significant amount of edema, and then patient underwent NGS that was positive for BRAF and V680 and she was start ed on targeted therapy for that in the form of Tafinlar as well as Mekinist, she just finished 10 sessions of radiation therapy with Dr. Shaikh on January 13, 2024 patient was in her usual state of health at about yesterday when she developed to have a significant numbness in the left side of her arm and patient was concerned about it she was having some issues finding the words as well, therefore she was brought into the emergency department at [facility], had a CT scan of the brain did not show evidence of acute abnormalities, she had a CT angiography did not show evidence of any acute dissection or significant stenosis or aneurysm, neurology consultation was obtained but because of the brain metastatic lesion she was not a candidate for any intervention at this time, she was admitted to the hospital for evaluation by neurology she was seen by Dr. Vega who recommended for the patient to go on Keppra and EEG was done for evaluation of seizure, patient was admitted to the hospital for evaluation by hematology oncology as well. 01/16: Patient is feeling better today, she denies any headache at this time, she denies any chest pain or any shortness of breath at this time, her was at the bedside, she is started on Keppra 500 mg orally twice every day, she is scheduled to go for an EEG tomorrow morning, if her EEG is negative patient can be discharged home tomorrow morning follow-up with her oncologist as an outpatient. 01/17: Turns laying down in bed in no apparent distress, she is eating her breakfast, she has no difficulty swallowing, she has no chest pain or shortness of breath, she has no abdominal pain, she has no headache in the morning, she is scheduled to go for an EEG today, still pending at the time of dictation, patient will be seen and evaluated by physical therapy, for possible subacute rehabilitation. 01/18: Patient is sitting up in the chair appears to be quite emotional, she was ambulating with a walker with her AFO brace to the right lower extremity with the physical therapist today, patient is aware of the prognosis at this point in time, she continues to have some vasogenic edema around the metastatic lesion in the brain, I will decrease her Decadron to 4 mg orally twice every day, patient is to be maintained on current treatment plan, patient will benefit from subacute rehabilitation at [facility], we will discuss with oncology team whether or not the patient can come off her medication since that scan to be an issue for her to go to [facility]. 01/19:. No new concerns from the patient. Numbness and tingling have resolved. Patient has been started on Keppra by neurology for concern for focal seizures without loss of consciousness. EEG is abnormal due to slight background disorganization with presence of mixed fast and slow frequency activity, suggestive of mild encephalopathy or medication effect. No focal, lateralized or epileptiform activity seen. Patient is also continued on Decadron currently at 4 mg twice daily for 10 days and then 4 mg daily for 10 days. She is doing well with physical therapy and plan is for discharge to subacute rehab today. She understands that her chemotherapy medications will need to be on hold while she is at the residential. Blood pressure 127/87, heart rate 60, pulse ox 93% on room air. No repeat blood work today. Patient will be discharged to [facility] once all arrangements are completed. DISCHARGE DIAGNOSES: 1. Left upper extremity numbness due to cortical irritability from her brain metastasis causing focal seizure without loss of consciousness. 2. Hypertension and hypertensive cardiovascular disease. 3. Mixed hyperlipidemia. 4. Coronary artery disease status post PCI in 04/28/2020. 5. Overactive bladder. 6. 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 7. Polycythemia vera. 9. Intractable nausea likely due to her medication side effect. 10. Discharge planning to [facility] on [facility]. Greater than 35 minutes was utilized and coordinating patient's discharge. Impression and plan of care have been directed as dictated by the signing physician. Torri Wyatt nurse practitioner acting as scribe for signing physician. Patient Condition at Discharge: Fair Plan - Discharge Summary Discharge Rx Participant: Yes New Discharge Prescriptions: New Docusate [Colace] 100 mg PO BID cap levETIRAcetam [Keppra] 500 mg PO Q12HR #60 tab polyethylene glycoL 3350 [Miralax] 17 gm PO DAILY #0 packet Aspirin 81 mg PO DAILY tab Pantoprazole [Protonix] 40 mg PO AC-BRKFST tab Continue Metoprolol Tartrate [Lopressor] 25 mg PO BID 30 Days #60 tab Ezetimibe [Zetia] 10 mg PO HS OLANZapine [ZyPREXA] 2.5 mg PO HS lisinopriL [Zestril] 5 mg PO DAILY oxyBUTYnin chloride [Ditropan] 5 mg PO BID Atorvastatin [Lipitor] 80 mg PO DAILY dexAMETHasone [Decadron] See Taper PO DIRECTED #0 Discontinued Tafinlar 50mg 50 mg PO BID@0400,1600 Trametinib Dimethyl Sulfoxide [Mekinist] 1.5 mg PO DAILY@0400 Discharge Medication List Metoprolol Tartrate [Lopressor] 25 mg PO BID 30 Days #60 tab 12/26/20 [Rx] Ezetimibe [Zetia] 10 mg PO HS 03/15/22 [History] OLANZapine [ZyPREXA] 2.5 mg PO HS 09/12/22 [History] Atorvastatin [Lipitor] 80 mg PO DAILY 01/15/24 [History] lisinopriL [Zestril] 5 mg PO DAILY 01/15/24 [History] oxyBUTYnin chloride [Ditropan] 5 mg PO BID 01/15/24 [History] Aspirin 81 mg PO DAILY tab 01/20/24 [Rx] Docusate [Colace] 100 mg PO BID cap 01/20/24 [Rx] Pantoprazole [Protonix] 40 mg PO AC-BRKFST tab 01/20/24 [Rx] dexAMETHasone [Decadron] See Taper PO DIRECTED #0 01/20/24 [Rx] levETIRAcetam [Keppra] 500 mg PO Q12HR #60 tab 01/20/24 [Rx] polyethylene glycoL 3350 [Miralax] 17 gm PO DAILY #0 packet 01/20/24 [Rx] Follow up Appointment(s)/Referral(s): Papo Granados MD [Primary Care Provider] - 1 Week [facility], [NON-STAFF] - 1 Week Patient Instructions/Handouts: Seizure/Epilepsy Discharge Instructions & Follow-Up Discharge/Stand Alone Forms: Who Do I Call?, Community Resources, Help In The Home, [employer] Specialist
[2024-01-20 14:21] VITALS: BP 136/87; PULSE 63; TEMP 97.7
== END 2024-01-20 15:45 | DRG 54 ==
LOC: EC 12:07 → 4SSUR 16:00 → 5NMEDONC 01-16 19:41
PROVIDERS: ADMIT Internal Medicine; ATTEND Internal Medicine
DX: C79.31 Secondary malignant neoplasm of brain (principal); G93.6 Cerebral edema; C34.90 Malignant neoplasm of unspecified part of unspecified bronchus or lung; G81.91 Hemiplegia, unspecified affecting right dominant side; G45.9 Transient cerebral ischemic attack, unspecified; R47.01 Aphasia; C77.1 Secondary and unspecified malignant neoplasm of intrathoracic lymph nodes; G93.40 Encephalopathy, unspecified; H53.9 Unspecified visual disturbance; R27.0 Ataxia, unspecified; D18.00 Hemangioma unspecified site; R29.810 Facial weakness; D45 Polycythemia vera; K21.9 Gastro-esophageal reflux disease without esophagitis; E78.2 Mixed hyperlipidemia; E89.0 Postprocedural hypothyroidism; H49.22 Sixth [abducent] nerve palsy, left eye; I11.9 Hypertensive heart disease without heart failure; I25.10 Atherosclerotic heart disease of native coronary artery without angina pectoris; N32.81 Overactive bladder; R56.9 Unspecified convulsions; Z79.82 Long term (current) use of aspirin; Z79.899 Other long term (current) drug therapy; Z87.891 Personal history of nicotine dependence; Z98.61 Coronary angioplasty status; Z90.711 Acquired absence of uterus with remaining cervical stump; Z86.73 Personal history of transient ischemic attack (TIA), and cerebral infarction without residual deficits
CPT/HCPCS: 36415; 70450; 70496; 70498; 80053; 83735; 84484; 85025; 85610; 85730; 95816; 96375

== ENCOUNTER 2024-01-27 14:33 | Inpatient (IN) | payer MEDICARE ==
--- NOTE | 2024-01-27 15:31 | CT ---
EXAMINATION TYPE: CT brain wo con CT DLP: 1137.4 mGycm, Automated exposure control for dose reduction was used. DATE OF EXAM: 01/27/2024 3:16 PM COMPARISON: Prior CT Brain from 01/15/2024, MR brain 01/09/2024. CLINICAL INDICATION:Female, 68 years old with history of ams, AMS. Cancer PT TECHNIQUE: Brain: Multiple axial CT images of the brain were obtained without IV contrast. . Coronal and sagitta l reformats reviewed. FINDINGS: Brain: Extra-axial spaces: No abnormal extra-axial fluid collections. Ventricular system: Within normal limits Cerebral parenchyma: No acute intraparenchymal hemorrhage . Similar right parietal region of hypodens e vasogenic edema related to known metastatic disease. Similar hypodense regions of vasogenic edema w ithin the left temporal lobe related to known metastatic disease. Heterogenous appearance within the ewelina related to known metastatic disease. New region of low attenuation within the left basal ganglia /thalamus region (series 201, image 29) The grijalva-white junction is well differentiated. Scattered hyp oattenuating areas are seen within the periventricular white matter. Cerebellum: Unremarkable. Mass effect: No evidence of midline shift. Intracranial vasculature: Atherosclerotic calcifications of the intracranial vessels. Soft tissues: Normal. Calvarium/osseous structures: No depressed skull fracture. Paranasal sinuses and mastoid air cells: Clear. Cerumen within the left external auditory canal. Visualized orbits: Orbital contents are intact. IMPRESSION: 1. No acute intracranial bleed. 2. Multifocal areas of low-attenuation within the right parietal lobe, left temporal lobe, and ewelina related to known metastatic disease. There is a new focal region of low density within the left basal ganglia/thalamus which also may represent new site of metastatic disease versus age indeterminate la cunar infarct. Consider further evaluation with MRI. [facility], , 01/27/2024 3:28 PM
--- NOTE | 2024-01-27 15:57 | ED ---
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 with now significant neurological deficit Location: speech, left face, dysarthria, altered Place: home Severity: severe Improves With: none Worsens With: none Context: gradual onset Associated Symptoms: confusion, shortness of breath, weakness Treatments Prior to Arrival: none - Related Data Home Medications: Home Medications Medication Instructions Recorded Confirmed Ezetimibe [Zetia] 10 mg PO HS 03/15/22 01/27/24 OLANZapine [ZyPREXA] 2.5 mg PO HS 09/12/22 01/27/24 Atorvastatin [Lipitor] 80 mg PO HS 01/15/24 01/27/24 lisinopriL [Zestril] 5 mg PO DAILY 01/15/24 01/27/24 oxyBUTYnin chloride [Ditropan] 5 mg PO Q12H 01/15/24 01/27/24 Omeprazole [PriLOSEC] 20 mg PO DAILY 01/27/24 01/27/24 levETIRAcetam [Keppra] 500 mg PO BID 01/27/24 01/27/24 Previous Rx's Medication Instructions Recorded Metoprolol Tartrate [Lopressor] 25 mg PO BID 30 Days #60 tab 12/26/20 Aspirin 81 mg PO DAILY tab 01/20/24 Docusate [Colace] 100 mg PO BID cap 01/20/24 dexAMETHasone [Decadron] See Taper PO DIRECTED #0 01/20/24 polyethylene glycoL 3350 [Miralax] 17 gm PO DAILY #0 packet 01/20/24 Allergies/Adverse Reactions: Allergies Allergy/AdvReac Type Severity Reaction Status Date / Time No Known Allergies Allergy Verified 01/27/24 17:29 Review of Systems ROS Statement: Those systems with pertinent positive or pertinent negative responses have been documented in the HPI. ROS Other: All systems not noted in ROS Statement are negative. General Exam Limitations: altered mental status, physical limitation General appearance: alert, in no apparent distress Head exam: Present: atraumatic, normocephalic, normal inspection Eye exam: Present: normal appearance, PERRL, EOMI. Absent: scleral icterus, conjunctival injection, periorbital swelling ENT exam: Present: normal exam, mucous membranes moist Neck exam: Present: normal inspection. Absent: tenderness, meningismus, lymphadenopathy Respiratory exam: Present: normal lung sounds bilaterally. Absent: respiratory distress, wheezes, rales, rhonchi, stridor Cardiovascular Exam: Present: regular rate, normal rhythm, normal heart sounds. Absent: systolic murmur, diastolic murmur, rubs, gallop, clicks GI/Abdominal exam: Present: soft, normal bowel sounds. Absent: distended, tenderness, guarding, rebound, rigid Extremities exam: Present: normal inspection, full ROM, normal capillary refill. Absent: tenderness, pedal edema, joint swelling, calf tenderness Back exam: Present: normal inspection Neurological exam: Present: alert, oriented X3, CN II-XII intact Psychiatric exam: Present: normal affect, normal mood Skin exam: Present: warm, dry, intact, normal color. Absent: rash Stroke MDM - Lab Data Result diagrams: 01/27/24 15:59 01/27/24 15:55 Lab Results 01/27/24 01/27/24 01/27/24 Range/Units 15:55 15:55 15:55 WBC (3.8-10.6) k/uL RBC (3.80-5.40) m/uL Hgb (11.4-16.0) gm/dL Hct (34.0-46.0) % MCV (80.0-100.0) fL MCH (25.0-35.0) pg MCHC (31.0-37.0) g/dL RDW (11.5-15.5) % Plt Count (150-450) k/uL MPV Neutrophils % % Lymphocytes % % Monocytes % % Eosinophils % % Basophils % % Neutrophils # (1.3-7.7) k/uL Lymphocytes # (1.0-4.8) k/uL Monocytes # (0-1.0) k/uL Eosinophils # (0-0.7) k/uL Basophils # (0-0.2) k/uL Poikilocytosis Anisocytosis Macrocytosis PT 13.5 H (10.0-12.5) sec INR 1.3 H (<1.2) APTT 24.3 (22.0-30.0) sec D-Dimer (<0.60) mg/L FEU Sodium 141 (137-145) mmol/L Potassium 4.4 (3.5-5.1) mmol/L Chloride 115 H (98-107) mmol/L Carbon Dioxide 12 L (22-30) mmol/L Anion Gap 14 mmol/L BUN 33 H (7-17) mg/dL Creatinine 0.86 (0.52-1.04) mg/dL Est GFR (CKD-EPI)AfAm 81 (>60 ml/min/1.73 sqM) Est GFR (CKD-EPI)NonAf 70 (>60 ml/min/1.73 sqM) Glucose 208 H (74-99) mg/dL Plasma Lactic Acid Sarmad 1.6 (0.7-2.0) mmol/L Calcium 9.0 (8.4-10.2) mg/dL Phosphorus 3.7 (2.5-4.5) mg/dL Magnesium 2.2 (1.6-2.3) mg/dL Total Bilirubin 1.2 (0.2-1.3) mg/dL AST 167 H (14-36) U/L ALT 147 H (4-34) U/L Alkaline Phosphatase 202 H (38-126) U/L Troponin I (0.000-0.034) ng/mL NT-Pro-B Natriuret Pep 27303 pg/mL Total Protein 6.1 L (6.3-8.2) g/dL Albumin 3.4 L (3.5-5.0) g/dL 01/27/24 01/27/24 01/27/24 Range/Units 15:55 15:55 15:59 WBC 24.7 H (3.8-10.6) k/uL RBC 5.81 H (3.80-5.40) m/uL Hgb 18.5 H (11.4-16.0) gm/dL Hct 57.5 H* (34.0-46.0) % MCV 98.8 (80.0-100.0) fL MCH 31.9 (25.0-35.0) pg MCHC 32.2 (31.0-37.0) g/dL RDW 17.5 H (11.5-15.5) % Plt Count 250 (150-450) k/uL MPV 9.6 Neutrophils % 93 % Lymphocytes % 3 % Monocytes % 4 % Eosinophils % 0 % Basophils % 0 % Neutrophils # 22.9 H (1.3-7.7) k/uL Lymphocytes # 0.7 L (1.0-4.8) k/uL Monocytes # 0.9 (0-1.0) k/uL Eosinophils # 0.0 (0-0.7) k/uL Basophils # 0.0 (0-0.2) k/uL Poikilocytosis Slight Anisocytosis Slight Macrocytosis Slight PT (10.0-12.5) sec INR (<1.2) APTT (22.0-30.0) sec D-Dimer 28.65 H (<0.60) mg/L FEU Sodium (137-145) mmol/L Potassium (3.5-5.1) mmol/L Chloride (98-107) mmol/L Carbon Dioxide (22-30) mmol/L Anion Gap mmol/L BUN (7-17) mg/dL Creatinine (0.52-1.04) mg/dL Est GFR (CKD-EPI)AfAm (>60 ml/min/1.73 sqM) Est GFR (CKD-EPI)NonAf (>60 ml/min/1.73 sqM) Glucose (74-99) mg/dL Plasma Lactic Acid Sarmad (0.7-2.0) mmol/L Calcium (8.4-10.2) mg/dL Phosphorus (2.5-4.5) mg/dL Magnesium (1.6-2.3) mg/dL Total Bilirubin (0.2-1.3) mg/dL AST (14-36) U/L ALT (4-34) U/L Alkaline Phosphatase (38-126) U/L Troponin I 1.990 H* (0.000-0.034) ng/mL NT-Pro-B Natriuret Pep pg/mL Total Protein (6.3-8.2) g/dL Albumin (3.5-5.0) g/dL - NIH Stroke Scale 1a. Level of Consciousness: (1) not alert, arousable 1b. LOC Questions: (2) answers no questions correctly 1c. LOC Commands: (0) performs tasks correctly 2. Best Gaze: (0) normal 3. Visual: (0) no visual loss 4. Facial Palsy: (0) normal symmetrical movement 5a. Motor Arm Left: (0) no drift 5b. Motor Arm Right: (0) no drift 6a. Motor Leg Left: (0) no drift 6b. Motor Leg Right: (0) no drift 7. Limb Ataxia: (1) present 1 limb 8. Sensory: (1) mild/moderate sensory loss 9. Best Language: (1) mild/moderate aphasia 10. Dysarthria: (1) mild/moderate dysarthria 11. 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 Patient has CT chest for positive bilateral PE), image reviewed - EKG Data -: EKG Interpreted by Me Past Medical History Past Medical History: Cancer, Hyperlipidemia, Thyroid Disorder Additional Past Medical History / Comment(s): previously 3 nodules on right side, Lung CA, Brain CA History of Any Multi-Drug Resistant Organisms: None Reported Past Surgical History: Hysterectomy Additional Past Surgical History / Comment(s): previous thyroidectomy - right side. Past Anesthesia/Blood Transfusion Reactions: No Reported Reaction Past Psychological History: No Psychological Hx Reported Smoking Status: Former smoker Past Alcohol Use History: Occasional Past Drug Use History: None Reported - Past Family History Father Family Medical History: Cancer, Hearing Disorder / Deafness Additional Family Medical History / Comment(s): lung Course Vital Signs 01/27/24 01/27/24 01/27/24 14:40 16:20 17:00 Temperature 97.6 F Pulse Rate 101 H 91 91 Respiratory 18 16 18 Rate Blood Pressure 93/72 92/70 101/69 O2 Sat by Pulse 93 L 95 92 L Oximetry 01/27/24 01/27/24 19:07 20:00 Temperature Pulse Rate 91 84 Respiratory 12 12 Rate Blood Pressure 96/66 81/63 O2 Sat by Pulse 94 L 96 Oximetry - Reevaluation(s) Reevaluation #1: 01/27/24 15:56 Records reviewed Reevaluation #2: 01/27/24 20:55 Patient has no change in symptoms worsening of symptoms throughout ER stay Reevaluation #3: 01/27/24 20:55 Family spoken with at length regarding grave condition and no CODE STATUS Reevaluation #4: Was pt. sent in by a medical professional or institution ([facility], RETAIL MARKETING EXECUTIVE, urgent care, hospital, or fci...) When possible be specific @ -no Did you speak to anyone other than the patient for history (EMS, parent, family, police, friend...)? What history was obtained from this source @ -no Did you review nursing and triage notes (agree or disagree)? Why? @ -agree Are old charts reviewed (outside hosp., previous admission, EMS record, old EKG, old radiological studies, urgent care reports/EKG's, fci records)? Report findings @ -yes Differential Diagnosis (chest pain, altered mental status, abdominal pain women, abdominal pain men, vaginal bleeding, weakness, fever, dyspnea, syncope, head ache, dizziness, GI bleed, back pain, seizure, CVA, palpatations, mental health, musculoskeletal)? @ -prior EKG interpreted by me (3pts min.). @ -yes X-rays interpreted by me (1pt min.). @ -yes negative for acute disease CT interpreted by me (1pt min.). @ -no U/S interpreted by me (1pt. min.). @ -no What testing was considered but not performed or refused? (CT, X-rays, U/S, labs)? Why? @ -none What meds were considered but not given or refused? Why? @ -none Did you discuss the management of the patient with other professionals (professionals i.e. [facility], RETAIL MARKETING EXECUTIVE, lab, RT, psych nurse, social scientist, home decorator, teacher, commissary officer, case loader operator)? Give summary @ -no Was smoking cessation discussed for >3mins.? @ -no Was critical care preformed (if so, how long)? @ -no Were there social determinants of health that impacted care today? How? (Homelessness, low income, unemployed, alcoholism, drug addiction, transportation, low edu. Level, literacy, decrease access to med. care, intermediate, rehab)? @ -none Was there de-escalation of care discussed even if they declined (Discuss DNR or withdrawal of care, Hospice)? DNR status @ -no What co-morbidities impacted this encounter? (DM, HTN, Smoking, COPD, CAD, Cancer, CVA, ARF, Chemo, Hep., AIDS, mental health diagnosis, sleep apnea, mor bid obesity)? @ -none Was patient admitted / discharged? Hospital course, mention meds given and ro kip, prescriptions, significant lab abnormalities, going to OR and other pertinent info. @ - Undiagnosed new problem with uncertain prognosis? @ -no Drug Therapy requiring intensive monitoring for toxicity (Heparin, Nitro, Insulin, Cardizem)? @ -no Were any procedures done? @ -no Diagnosis/symptom? @ - Acute, or Chronic, or Acute on Chronic? @ -Acute Uncomplicated (without systemic symptoms) or Complicated (systemic symptoms)? @ -Complicated Side effects of treatment? @ -no Exacerbation, Progression, or Severe Exacerbation? @ -exacerbation Poses a threat to life or bodily function? How? (Chest pain, [place], [place], pneumonia, PE, COPD, DKA, ARF, appy, cholecystitis, CVA, Diverticulitis, Homicidal, Suicidal, threat to staff... and all critical care pts) @ -yes Reevaluation #5: Differential CVA Ischemic stroke, hemorrhagic stroke, brain tumor, atypical migraine, Wernicke's encephalopathy, seizure, multiple sclerosis, meningitis, encephalitis, hypoglycemia, Guillain-Cabrera, electrolytes disturbance, myasthenia gravis.... This is not meant to be an all-inclusive list - Consultations Consultation #1: Spoke with To her regarding patient agrees to admission Consultation #2: With ICU agrees to ICU accept the patient Critical Care Time Critical Care Time: Yes Total Critical Care Time: 95 Disposition Clinical Impression: Stroke-like symptoms, Lung cancer, Metastasis to brain, Bilateral pulmonary embolism, NSTEMI (non-ST elevated myocardial infarction), Altered mental status Disposition: ADMITTED IP TO THIS [facility] Condition: Serious Is patient prescribed a controlled substance at d/c from ED?: No Time of Disposition: 18:45
[2024-01-27] MEDS: DEXAMETHASONE SOD PHOSPHATE 10 MG/ML 1 ML VIAL IVP STA (16:03)
[2024-01-27] MEDS: ONDANSETRON 4 MG/2 ML VIAL IVP STA ×2 (16:03→16:12)
[2024-01-27] MEDS: PANTOPRAZOLE 40 MG/10 ML VIAL IVP STA (16:04)
[2024-01-27] MEDS: SODIUM CHLORIDE 0.9% 500 ML 500 ML IV STA (16:05)
[2024-01-27] MEDS: SODIUM CHLORIDE 0.9% 1,000 ML IV STA (16:05)
[2024-01-27] MEDS: MORPHINE SULFATE 4 MG/ML SYRINGE IV STA (16:19)
[2024-01-27 16:20] LABS: INR 1.3 (<1.2); Partial Thromboplastin Time 24.3 sec (22.0-30.0); Prothrombin Time 13.5 sec (10.0-12.5)
[2024-01-27 16:30] LABS: ALT 147 U/L (4-34); AST 167 U/L (14-36); African American GFR (CKD) 81 (>60 ml/min/1.73 sqM); Albumin 3.4 g/dL (3.5-5.0); Alkaline Phosphatase 202 U/L (38-126); Anion Gap 14 mmol/L; Blood Urea Nitrogen 33 mg/dL (7-17); Carbon Dioxide 12 mmol/L (22-30); Chloride 115 mmol/L (98-107); Glucose 208 mg/dL (74-99); Magnesium 2.2 mg/dL (1.6-2.3); Non-African American GFR(CKD) 70 (>60 ml/min/1.73 sqM); Phosphorus 3.7 mg/dL (2.5-4.5); Potassium 4.4 mmol/L (3.5-5.1); Sodium 141 mmol/L (137-145); Total Bilirubin 1.2 mg/dL (0.2-1.3); Total Protein 6.1 g/dL (6.3-8.2)
[2024-01-27 16:37] LABS: Anisocytosis Slight; Basophils % (A) 0 %; Eosinophils % (A) 0 %; HGB 18.5 gm/dL (11.4-16.0); Lymphocytes # (A) 0.7 k/uL (1.0-4.8); Lymphocytes % (A) 3 %; MCH 31.9 pg (25.0-35.0); MCHC 32.2 g/dL (31.0-37.0); MCV 98.8 fL (80.0-100.0); Macrocytosis Slight; Mean Platelet Volume 9.6; Monocytes # (A) 0.9 k/uL (0-1.0); Monocytes % (A) 4 %; Neutrophils # (A) 22.9 k/uL (1.3-7.7); Neutrophils % (A) 93 %; Platelet Count 250 k/uL (150-450); Poikilocytosis Slight; RBC 5.81 m/uL (3.80-5.40); RDW 17.5 % (11.5-15.5); WBC 24.7 k/uL (3.8-10.6)
[2024-01-27 16:38] LABS: NT-Pro-B-Type Natriuretic Pept 16700 pg/mL
--- NOTE | 2024-01-27 16:49 | XR ---
EXAMINATION TYPE: XR chest 2V DATE OF EXAM: 01/27/2024 4:28 PM COMPARISON: Chest radiographs from 06/10/2022 CLINICAL INDICATION: Female, 68 years old with history of Weakness; [facility] TECHNIQUE: XR chest 2V Frontal and lateral views of the chest. FINDINGS: Lungs/Pleura: airspace opacities projecting over the spine. There is no evidence of pleural effusion, focal consolidation, or pneumothorax. Pulmonary vascularity: Unremarkable. Heart/mediastinum: Cardiomediastinal silhouette is prominent in size. Musculoskeletal: No acute osseous pathology. IMPRESSION: Airspace opacities projecting over the spine correlate for pneumonia. [facility], , 01/27/2024 4:46 PM
[2024-01-27 17:07] LABS: HCT 57.5 % (34.0-46.0)
[2024-01-27] MEDS: DEXAMETHASONE SOD PHOSPHATE 4 MG/ML 1 ML VIAL IVP SCH (18:04)
--- NOTE | 2024-01-27 18:41 | CT ---
EXAMINATION TYPE: CT angio chest DATE OF EXAM: 01/27/2024 6:17 PM COMPARISON: CTA chest History CLINICAL INDICATION: Female, 68 years old with history of PE; SOB TECHNIQUE/CONTRAST: CTA scan of the thorax is performed with IV Contrast, patient injected with 100 mL of Isovue 370, MIP images are created and reviewed these are created on a separate workstation.. CT DLP: 303.1 mGycm, Automated exposure control for dose reduction was used. FINDINGS: Pulmonary Artery: Extensive low-density filling defects throughout the bilateral main, lobar, segment al and subsegmental pulmonary artery branches with very large degree of clot burden. Main pulmonary a rtery is dilated measuring 2.8 cm in diameter, which can be seen with underlying pulmonary hypertensi on. Lungs/Pleura: Groundglass and wedge-shaped consolidative opacities primarily in the lower lobes, whic h are felt to most likely reflect atelectasis and developing pulmonary infarctions. No pneumothorax o r sizable pleural effusion. Airway: Large airways are patent. Heart: There is a dilated RV/LV ratio suggestive of right heart strain. Coronary artery calcification s. Heart size mildly enlarged. Vasculature: No evidence of aortic aneurysm. Mediastinum: No gross evidence of adenopathy. Musculoskeletal: No acute osseous abnormalities Soft Tissues/lymph nodes: Unremarkable. Lower neck: No significant findings. Upper Abdomen: No significant findings. Partially visualized simple cyst in the superior left kidney. Colonic diverticulosis also partially visualized. IMPRESSION: 1. Bilateral acute pulmonary emboli involving the main, lobar, segmental and subsegmental pulmonary artery branches as described above. Additionally, there are findings suggestive of underlying right h eart strain. 2. Patchy groundglass and consolidative opacities in the lower lobes consistent with atelectasis and /or developing pulmonary infarctions. 3. Additional nonacute findings as above. *These critical findings were relayed to Dr. Bauer at approximately 6:30 PM on 01/27/2024 [facility], , 01/27/2024 6:39 PM
[2024-01-27] MEDS ORDERED: HEPARIN SODIUM 1,000 UN/ML (10ML VL) IV PRN (18:45)
[2024-01-27] MEDS ORDERED: NALOXONE 0.4 MG/ML 1 ML VIAL IV PRN (18:47)
[2024-01-27] MEDS: HYDROmorphone 1 MG/ML 1 ML SYRINGE IVP STA (18:53)
[2024-01-27] MEDS: HEPARIN SODIUM 1,000 UN/ML (10ML VL) IV ONE (19:01)
[2024-01-27] MEDS: HEPARIN SOD,PORK IN 0.45% NACL 25,000 UNIT in 0.45% NACL 1 250ML.BAG IV SCH (19:02)
[2024-01-28 00:31] LABS: Appearance,Urine Cloudy (Clear); Bacteria,Urine Many /hpf; Bilirubin,Urine 1+ (Negative); Blood,Urine Moderate (Negative); Color,Urine Yellow; Glucose,Urine (UA) Negative (Negative); Ketones,Urine 1+ (Negative); Leukocyte Esterase,Urine Negative (Negative); Mucus,Urine Rare /hpf; Nitrite,Urine Negative (Negative); PH, Urine 5.5 (5.0-8.0); Protein,Urine 1+ (Negative); RBC,Urine 1 /hpf (0-5); Specific Gravity,Urine 1.026 (1.001-1.035); WBC,Urine 1 /hpf (0-5)
[2024-01-28] MEDS: HYDROmorphone 1 MG/ML 1 ML SYRINGE IVP PRN (01:41)
[2024-01-28 04:01] LABS: INR 1.3 (<1.2); Prothrombin Time 13.3 sec (10.0-12.5)
[2024-01-28] MEDS: PANTOPRAZOLE 40 MG/10 ML VIAL IVP SCH (08:37)
--- NOTE | 2024-01-28 11:07 | US ---
EXAMINATION TYPE: US venous doppler duplex LE BI DATE OF EXAM: 01/28/2024 9:35 AM COMPARISON: NONE CLINICAL INDICATION: Female, 68 years old with history of bilateral PE; HX of brain mets, TECHNIQUE: The lower extremity deep venous system is examined utilizing real time linear array sonog ryley with graded compression, color doppler sonography, and spectral doppler. SIDE PERFORMED: bilateral FINDINGS: VESSELS IMAGED: Common Femoral Vein Deep Femoral Vein Greater Saphenous Vein * Femoral Vein Popliteal Vein Small Saphenous Vein * Proximal Calf Veins (* superficial vessels) Right Leg: Positive for DVT, Internal echoes that did not compress from the calf vs up through proxi mal FV Left Leg: Positive for DVT, Internal echoes that did not compress from the calf vs through her proxi mal popliteal v IMPRESSION: Deep vein thrombosis in the bilateral lower extremities. Findings communicated to Dr. Lurdes Galicia 01/28/2024 11:[address] Mesfin Jama. Provider: Lurdes Romero Attending: Papo Granados MD [facility], , 01/28/2024 11:04 AM
[2024-01-28] MEDS: levETIRAcetam IV 500 MG/5 ML VIAL IVP SCH (12:18)
--- NOTE | 2024-01-28 12:32 | P.CNPUL ---
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 Patient is a poor historian due to difficulties with her speech and altered mentation and all history is obtained via old records and daughter who is present at bedside. On 01/13/2024 she completed 10 sessions of radiation with Dr. Shaikh and then on 01/15/2024 she presented to the emergency department with complaints of numbness in the left arm. Brain CT and CT angiography at the time showed no acute processes. She was admitted to the hospital for further evaluation. On 01/20/2024 she was discharged to [facility]. Her daughter, who is at bedside, states that since her discharge she has been declining. The patient saw Dr. Shaikh yesterday and he advised coming to the emergency department due to her worsening mentation and low blood pressure readings at home. Her daughter states that her speech has significantly worsened over the last few weeks and over the last 2 days she has become less awake and alert. EKG showed normal sinus rhythm. Chest x-ray showed airspace opacities projecting over the spine, correlate for pneumonia. CT brain showed: No acute intracranial bleed, multifocal areas of low-attenuation within the right parietal lobe, left temporal lobe and ewelina related to known metastatic disease; a new focal region of low-density within the left basal ganglia/thalamus which may also represent new site of metastatic disease versus age-indeterminate lacunar infarct. CT angio chest showed: Bilateral acute pulmonary emboli involving main, lobar, segmental, and subsegmental pulmonary artery branches with findings suggestive of underlying right heart strain; patchy groundglass and consolidative opacities in the lower lobes consistent with atelectasis and/or developing pulmonary infarctions. Initial labs showed WBCs 24.7, hemoglobin 18.5, hematocrit 57.5, platelets 250, sodium 141, potassium 4.4, chloride 115, CO2 12, BUN 33, creatinine 0.86, glucose 208, lactic acid 1.6, magnesium 2.2, AST 167, ALT 147, alkaline phosphatase 202, troponin 1.99, NT proBNP 16,700, D-dimer 28.65. Review of Systems ROS unobtainable: due to mental status Past Medical History Past Medical History: Cancer, Hyperlipidemia, Thyroid Disorder Additional Past Medical History / Comment(s): previously 3 nodules on right si de, Lung CA, Brain CA History of Any Multi-Drug Resistant Organisms: None Reported Past Surgical History: Hysterectomy Additional Past Surgical History / Comment(s): previous thyroidectomy - right side. Past Anesthesia/Blood Transfusion Reactions: No Reported Reaction Past Psychological History: No Psychological Hx Reported Smoking Status: Former smoker Past Alcohol Use History: Occasional Past Drug Use History: None Reported - Past Family History Father Family Medical History: Cancer, Hearing Disorder / Deafness Additional Family Medical History / Comment(s): lung Medications and Allergies Home Medications Medication Instructions Recorded Confirmed Type Metoprolol Tartrate [Lopressor] 25 mg PO BID 30 Days #60 tab 12/26/20 01/27/24 Rx Ezetimibe [Zetia] 10 mg PO HS 03/15/22 01/27/24 History OLANZapine [ZyPREXA] 2.5 mg PO HS 09/12/22 01/27/24 History Atorvastatin [Lipitor] 80 mg PO HS 01/15/24 01/27/24 History lisinopriL [Zestril] 5 mg PO DAILY 01/15/24 01/27/24 History oxyBUTYnin chloride [Ditropan] 5 mg PO Q12H 01/15/24 01/27/24 History Aspirin 81 mg PO DAILY tab 01/20/24 01/27/24 Rx Docusate [Colace] 100 mg PO BID cap 01/20/24 01/27/24 Rx dexAMETHasone [Decadron] See Taper PO DIRECTED #0 01/20/24 01/27/24 Rx polyethylene glycoL 3350 [Miralax] 17 gm PO DAILY #0 packet 01/20/24 01/27/24 Rx Omeprazole [PriLOSEC] 20 mg PO DAILY 01/27/24 01/27/24 History levETIRAcetam [Keppra] 500 mg PO BID 01/27/24 01/27/24 History Apixaban [Eliquis Starter Pack 5 - 10 mg PO DIRECTED 30 Days 01/28/24 Rx (for VTE)] #1 each Allergies Allergy/AdvReac Type Severity Reaction Status Date / Time No Known Allergies Allergy Verified 01/27/24 17:29 Physical Exam Vitals: Vital Signs Temp Pulse Resp BP Pulse Ox 01/28/24 07:00 94 15 107/68 95 01/28/24 06:15 97.8 F 92 16 113/76 95 01/28/24 05:30 91 18 102/73 95 01/28/24 05:12 93 15 99/67 95 01/28/24 04:06 89 17 111/68 96 01/28/24 03:01 88 17 94/63 94 L 01/28/24 01:08 85 15 99/73 96 01/28/24 00:16 82 12 100/77 96 01/27/24 23:00 86 18 90/57 96 01/27/24 22:00 83 12 87/64 95 01/27/24 21:00 88 12 99/62 95 01/27/24 20:00 84 12 81/63 96 01/27/24 19:07 91 12 96/66 94 L 01/27/24 17:00 91 12 101/69 92 L 01/27/24 16:20 91 16 92/70 95 01/27/24 14:40 97.6 F 101 H 18 93/72 93 L Intake and Output 01/27/24 01/28/24 01/28/24 22:59 06:59 14:59 Intake Total 109.116 Balance 109.116 Intake: Intake, IV Titration 109.116 Amount Heparin Sod,Pork in 0.45% 109.116 NaCl 25,000 unit In 0.45 % NaCl 1 250ml.bag @ 18 UNITS/KG/HR 11.839 mls/hr IV .Q21H7M [facility] Rx#: [id number] Vital signs are stable. General: No acute distress. Lethargic. HEENT: Head exam is unremarkable. EOMI bilaterally. ACs patent. Nares patent. Lungs: Bilateral breath sounds present; rhonchi present bilaterally; no wheezes or rales. Heart: Rate and rhythm are regular. S1-S2 present. No murmur/rub/gallops. Abdomen: Soft, nontender, nondistended. Bowel sounds present. Extremities: No edema present. 0/5 strength in the right extremities. 3/5 strength in the left extremities. Neuro: CN II-XII grossly intact. Results - Laboratory Findings CBC and BMP: 01/27/24 15:59 01/27/24 15:55 PT/INR, D-dimer PT 13.3 sec (10.0-12.5) H 01/28/24 02:23 INR 1.3 (<1.2) H 01/28/24 02:23 D-Dimer 28.65 mg/L FEU (<0.60) H 01/27/24 15:55 Abnormal lab findings: Abnormal Labs 01/27/24 01/27/24 01/27/24 15:55 15:55 15:55 WBC RBC Hgb Hct RDW Neutrophils # Lymphocytes # PT 13.5 H INR 1.3 H APTT D-Dimer Chloride 115 H Carbon Dioxide 12 L BUN 33 H Glucose 208 H AST 167 H ALT 147 H Alkaline Phosphatase 202 H Troponin I 1.990 H* Total Protein 6.1 L Albumin 3.4 L Urine Appearance Urine Protein Urine Ketones Urine Blood Urine Bilirubin Urine Bacteria Urine Mucus 01/27/24 01/27/24 01/28/24 15:55 15:59 00:15 WBC 24.7 H RBC 5.81 H Hgb 18.5 H Hct 57.5 H* RDW 17.5 H Neutrophils # 22.9 H Lymphocytes # 0.7 L PT INR APTT D-Dimer 28.65 H Chloride Carbon Dioxide BUN Glucose AST ALT Alkaline Phosphatase Troponin I Total Protein Albumin Urine Appearance Cloudy H Urine Protein 1+ H Urine Ketones 1+ H Urine Blood Moderate H Urine Bilirubin 1+ H Urine Bacteria Many H Urine Mucus Rare H 01/28/24 01/28/24 02:23 02:23 WBC RBC Hgb Hct RDW Neutrophils # Lymphocytes # PT 13.3 H INR 1.3 H APTT 185.3 H* D-Dimer Chloride Carbon Dioxide BUN Glucose AST ALT Alkaline Phosphatase Troponin I Total Protein Albumin Urine Appearance Urine Protein Urine Ketones Urine Blood Urine Bilirubin Urine Bacteria Urine Mucus Assessment and Plan Assessment: Submassive pulmonary embolism Lung cancer with metastasis to the brain. Undergoing radiation with Dr. Shaikh Right-sided hemiparesis Dysarthria Dysphagia as reported by the daughter History of hypertension History of hyperlipidemia History of [place] with stenting December 2020 History of right-sided thyroidectomy Former smoker Plan: Begin Eliquis VTE starter pack. Continue Decadron. Continue IV heparin. GI prophylaxis with IV Protonix. Consider hospice options. Daughter was at bedside for this discussion and all questions were answered. Patient will continue to be followed by pulmonology. Recommendations to be dete rmined by clinical course. Poor overall prognosis.
--- NOTE | 2024-01-28 14:02 | P.CONS ---
History of Present Illness - Reason for Consult Consult date: 01/28/24 Brain metastasis Requesting physician: Tl Bauer - Chief Complaint Hypotension, lt face dysartha, speech alterations - History of Present Illness Ms. Babb is a 67-year-old female pt of Dr. Naveed Lin with a diagnosis of metastatic lung adenocarcinoma with brain mets. She initially followed with Dr. Pat Velazquez for persistent cough which had developed over 2 to [address] chest 02/19/2022 noted focal masslike consolidation in the right middle lobe measuring 2.7 x 2.2 cm along with mass/masslike consolidation in the right lower lobe measuring 6.1 x 4.5 cm and a nodular area measuring 1.3 cm in the lateral part of the right lower lobe. PET/CT 02/28/22 revealed RML and RLL patchy consolidative changes with increased FDG avidity in the right lung base with an SUV of 5. This area measured 2.6 x 2.1 cm. There were 2 hypodense areas in the right hepatic lobe of the liver near the dome, which were not FDG avid. There was FDG avidity in the left proximal humerus with an SUV of 4.3. She was due to have a brain MRI as part of staging concerning for lung cancer when she developed progressive ataxia with a right leaning gait as well as new onset dysarthria. She initially presented to [facility] and was subsequently transferred to [facility] for additional management. Brain MRI 03/16/2022 showed a ring-enhancing central left paramedian pontine mass measuring 14.6 x 15.6 x 14.7 mm with significant surrounding edema involving the entire ewelina with extension into the middle cerebellar peduncles. There is increased signal intensity into the left medullary pyramid and the cervicomedullary junction. There was a deformity of the fourth ventricle without hydrocephalus. Cervical spine MRI on 03/16/2022 noted lateral masses of C1 that were hyperintense on T2 but not T1. These were not definitive for malignancy. An MRI of the abdomen on 03/16/2022 noted 3 hyperintense T2 signals in both hepatic lobes which were compatible with hemangiomas. She was initially placed on steroids per neurosurgery and eventually was discharged on 03/18/2022 for additional work-up outpatient. She had a flexible bronchoscopy with tra nsbronchial FNA biopsy on 03/20/2022 of the 4R and 11 R lymph nodes which were negative for malignancy in the 4R lymph node, but was positive for metastatic adenocarcinoma in the 11 R lymph node. IHC was positive for TTF-1 and negative for p40. Final staging IVB ([id number]) adenocarcinoma of the lung with brain metastases. 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 She was evaluated by Dr. Shaikh of Radiation Oncology and completed a total of 5 fractions of SBRT for total of 25 Gy from 04/10/2022 through 04/16/2022. NGS with nontargetable mutations and PD-L1 less than 1%. MSI high status was negative and low tumor mutational burden. [employer] 360 noted presence of BRAF V600E and JAK2 mutations. It was not clear if JAK2 mutation (ultimately found to be a germline mutation). Treatment with dabrafenib/trametinib targeting BRAF V600E mutation was initiated on 04/23/2022. Brain MRI on 06/09/2022 revealed treated cerebellar lesion with no evidence of new intracranial metastases Repeat staging CT scans on 07/07/2002 revealed significant partial response. She required dose reduction of Dabrafenib/trametinib due to side effects. MRI brain 09/05/22 revealed area in the brainstem being enlarged to 1.3 cm from 0.8 x 1 cm. No additional metastases were noted. She was started on dexamethasone taper per Dr. Shaikh and has had no further episodes of ataxia, which was completed in the end of October 2022. LVEF in Jan 2023 had decreased so dabrafenib/trametinibwas held for 1 month with recovery or LVEF on ECHO 02/17/2023. Brain MRI on 02/13/2023 noted increasing size of known pontine lesion in addition to new subcentimeter lesions involving the cerebellum and bilateral cerebral hemispheres. She resumed dabrafenib/trametinib at reduced dose, repeat brain MRI on 04/17/2023 noted interval significant improvement in all previously visualized lesions. Because of this, whole brain radiation therapy was deferred. Brain MRI on 07/08/2023 noted no evidence of disease progression with previously visualized lesions overall decreasing in size. Treatment monitoring CT 07/27/2023 noted no evidence of disease recurrence with streaky atelectasis in the right lung base. MRI of the brain 10/20/2023 noted small lesions that were enhancing with vasogenic edema that were concerning for 4-5 metastatic lesions. She was placed on course of dexamethasone, which did provide relief. CT 11/10/2023 revealed no evidence of recurrent or metastatic disease. Clinically, she was having increased nystagmus of the right eye along with weakness in the right upper and lower extremity. Brain MRI 12/09/2023 revealed evidence of disease progression with new brain lesions in addition to increased edema at the ewelina. She was increased to dexamethasone 4 times daily. Reviewed case with Dr. Shaikh, with plans for whole brain radiation therapy, which pt completed recently. Since that time pt has continued to decline,speech slurred, confused, visible neurological deficits. She is currently on dex 4mg Q4, she was found to have bilateral PE and is on heparin drip. Trop and BNP significantly elevated. Daughter at bedside. Pt opens eyes to voice, she does attempt to answer questions but most is unintelligible Review of Systems 10 point ROS is neg except as stated in HPI Past Medical History Past Medical History: Cancer, Hyperlipidemia, Thyroid Disorder Additional Past Medical History / Comment(s): previously 3 nodules on right side, Lung CA, Brain CA History of Any Multi-Drug Resistant Organisms: None Reported Past Surgical History: Hysterectomy Additional Past Surgical History / Comment(s): previous thyroidectomy - right side. Past Anesthesia/Blood Transfusion Reactions: No Reported Reaction Past Psychological History: No Psychological Hx Reported Smoking Status: Former smoker Past Alcohol Use History: Occasional Past Drug Use History: None Reported - Past Family History Father Family Medical History: Cancer, Hearing Disorder / Deafness Additional Family Medical History / Comment(s): lung Medications and Allergies Home Medications Medication Instructions Recorded Confirmed Type Metoprolol Tartrate [Lopressor] 25 mg PO BID 30 Days #60 tab 12/26/20 01/27/24 Rx Ezetimibe [Zetia] 10 mg PO HS 03/15/22 01/27/24 History OLANZapine [ZyPREXA] 2.5 mg PO HS 09/12/22 01/27/24 History Atorvastatin [Lipitor] 80 mg PO HS 01/15/24 01/27/24 History lisinopriL [Zestril] 5 mg PO DAILY 01/15/24 01/27/24 History oxyBUTYnin chloride [Ditropan] 5 mg PO Q12H 01/15/24 01/27/24 History Aspirin 81 mg PO DAILY tab 01/20/24 01/27/24 Rx Docusate [Colace] 100 mg PO BID cap 01/20/24 01/27/24 Rx dexAMETHasone [Decadron] See Taper PO DIRECTED #0 01/20/24 01/27/24 Rx polyethylene glycoL 3350 [Miralax] 17 gm PO DAILY #0 packet 01/20/24 01/27/24 Rx Omeprazole [PriLOSEC] 20 mg PO DAILY 01/27/24 01/27/24 History levETIRAcetam [Keppra] 500 mg PO BID 01/27/24 01/27/24 History Apixaban [Eliquis Starter Pack 5 - 10 mg PO DIRECTED 30 Days 01/28/24 Rx (for VTE)] #1 each Allergies Allergy/AdvReac Type Severity Reaction Status Date / Time No Known Allergies Allergy Verified 01/27/24 17:29 Physical Exam Vitals: Vital Signs Temp Pulse Resp BP Pulse Ox 01/28/24 07:00 94 15 107/68 95 01/28/24 06:15 97.8 F 92 16 113/76 95 01/28/24 05:30 91 18 102/73 95 01/28/24 05:12 93 15 99/67 95 01/28/24 04:06 89 17 111/68 96 01/28/24 03:01 88 17 94/63 94 L 01/28/24 01:08 85 15 99/73 96 01/28/24 00:16 82 12 100/77 96 01/27/24 23:00 86 18 90/57 96 01/27/24 22:00 83 12 87/64 95 01/27/24 21:00 88 12 99/62 95 01/27/24 20:00 84 12 81/63 96 01/27/24 19:07 91 12 96/66 94 L 01/27/24 17:00 91 12 101/69 92 L 01/27/24 16:20 91 16 92/70 95 01/27/24 14:40 97.6 F 101 H 18 93/72 93 L Intake and Output 01/27/24 01/28/24 01/28/24 22:59 06:59 14:59 Intake Total 109.116 Balance 109.116 Intake: Intake, IV Titration 109.116 Amount Heparin Sod,Pork in 0.45% 109.116 NaCl 25,000 unit In 0.45 % NaCl 1 250ml.bag @ 18 UNITS/KG/HR 11.839 mls/hr IV .Q21H7M [facility] Rx#: [id number] - Constitutional General appearance: cooperative, no acute distress, thin - EENT Eyes: anicteric sclerae, EOMI (NOT intact) ENT: hearing grossly normal - Neck Neck: no lymphadenopathy - Respiratory Respiratory: bilateral: diminished - Cardiovascular Rhythm: regular Heart sounds: normal: S1, S2 Abnormal Heart Sounds: no systolic murmur, no diastolic murmur, no rub, no S3 Gallop, no S4 Gallop, no click, no other leg Peripheral Edema: bilateral: None - Gastrointestinal General gastrointestinal: no absent bowel sounds, no decreased bowel sounds, no distended, no hepatomegaly, no hyperactive bowel sounds, normal bowel sounds, no organomegaly, no rigid, no scaphoid, soft, no splenomegaly, no tenderness, no umbilical hernia, no ventral hernia - Integumentary Integumentary: normal - Neurologic Neurologic: focal deficits - Musculoskeletal Musculoskeletal: right sided weakness - Psychiatric alert, unable to determine orientation as speech is not clear but, she did say to her daughter, "explain whats going on" Results CBC & Chem 7: 01/27/24 15:59 01/27/24 15:55 Labs: Abnormal Lab Results - Last 24 Hours (Table) 01/27/24 01/27/24 01/27/24 Range/Units 15:55 15:55 15:55 WBC (3.8-10.6) k/uL RBC (3.80-5.40) m/uL Hgb (11.4-16.0) gm/dL Hct (34.0-46.0) % RDW (11.5-15.5) % Neutrophils # (1.3-7.7) k/uL Lymphocytes # (1.0-4.8) k/uL PT 13.5 H (10.0-12.5) sec INR 1.3 H (<1.2) APTT (22.0-30.0) sec D-Dimer (<0.60) mg/L FEU Chloride 115 H (98-107) mmol/L Carbon Dioxide 12 L (22-30) mmol/L BUN 33 H (7-17) mg/dL Glucose 208 H (74-99) mg/dL AST 167 H (14-36) U/L ALT 147 H (4-34) U/L Alkaline Phosphatase 202 H (38-126) U/L Troponin I 1.990 H* (0.000-0.034) ng/mL Total Protein 6.1 L (6.3-8.2) g/dL Albumin 3.4 L (3.5-5.0) g/dL Urine Appearance (Clear) Urine Protein (Negative) Urine Ketones (Negative) Urine Blood (Negative) Urine Bilirubin (Negative) Urine Bacteria (None) /hpf Urine Mucus (None) /hpf 01/27/24 01/27/24 01/28/24 Range/Units 15:55 15:59 00:15 WBC 24.7 H (3.8-10.6) k/uL RBC 5.81 H (3.80-5.40) m/uL Hgb 18.5 H (11.4-16.0) gm/dL Hct 57.5 H* (34.0-46.0) % RDW 17.5 H (11.5-15.5) % Neutrophils # 22.9 H (1.3-7.7) k/uL Lymphocytes # 0.7 L (1.0-4.8) k/uL PT (10.0-12.5) sec INR (<1.2) APTT (22.0-30.0) sec D-Dimer 28.65 H (<0.60) mg/L FEU Chloride (98-107) mmol/L Carbon Dioxide (22-30) mmol/L BUN (7-17) mg/dL Glucose (74-99) mg/dL AST (14-36) U/L ALT (4-34) U/L Alkaline Phosphatase (38-126) U/L Troponin I (0.000-0.034) ng/mL Total Protein (6.3-8.2) g/dL Albumin (3.5-5.0) g/dL Urine Appearance Cloudy H (Clear) Urine Protein 1+ H (Negative) Urine Ketones 1+ H (Negative) Urine Blood Moderate H (Negative) Urine Bilirubin 1+ H (Negative) Urine Bacteria Many H (None) /hpf Urine Mucus Rare H (None) /hpf 01/28/24 01/28/24 Range/Units 02:23 02:23 WBC (3.8-10.6) k/uL RBC (3.80-5.40) m/uL Hgb (11.4-16.0) gm/dL Hct (34.0-46.0) % RDW (11.5-15.5) % Neutrophils # (1.3-7.7) k/uL Lymphocytes # (1.0-4.8) k/uL PT 13.3 H (10.0-12.5) sec INR 1.3 H (<1.2) APTT 185.3 H* (22.0-30.0) sec D-Dimer (<0.60) mg/L FEU Chloride (98-107) mmol/L Carbon Dioxide (22-30) mmol/L BUN (7-17) mg/dL Glucose (74-99) mg/dL AST (14-36) U/L ALT (4-34) U/L Alkaline Phosphatase (38-126) U/L Troponin I (0.000-0.034) ng/mL Total Protein (6.3-8.2) g/dL Albumin (3.5-5.0) g/dL Urine Appearance (Clear) Urine Protein (Negative) Urine Ketones (Negative) Urine Blood (Negative) Urine Bilirubin (Negative) Urine Bacteria (None) /hpf Urine Mucus (None) /hpf Chest x-ray: report reviewed CT scan - chest: report reviewed CT Scan - head: report reviewed Assessment and Plan (1) Bilateral pulmonary embolism Current Visit: Yes Status: Acute Priority: High Code(s): I26.99 - OTHER PULMONARY EMBOLISM WITHOUT ACUTE COR PULMONALE SNOMED Code(s): 82510002 (2) Lung cancer Current Visit: Yes Status: Chronic Priority: High Code(s): C34.90 - MALIGNANT NEOPLASM OF UNSP PART OF UNSP BRONCHUS OR LUNG SNOMED Code(s): 866251623 Plan: Progressive neurological symptoms -Recent WBRT for progressive mets in brain -CT brain without contrast neg for bleed -Suspect rebound edema to treated lesion. Dex has been ordered, will see how does symptomatically in the next 24-48 hours Bilateral PE -multifactorial including malignancy, steroids, decreased mobility -Case discussed with Rad Onc, recently treated brain mets, can anticoagulate if needed -Doppler BLE ordered for baseline Braf + metastatic NSCLC -Pt has been on oral braf inhibitor for over a year and has done well with dose reductions and has had disease control-outside of the brain -Family is leaning towards hospice because of pt overall decline, which is completely reasonable Doctor attests: I performed a history and physical examination of this patient, developed impression and plan of care. Discussed with dictator. I agree with dictators note, documented as a scribe.
--- NOTE | 2024-01-28 16:00 | P.CNNES ---
History of Present Illness Consult date: 01/28/24 Requesting physician: Tl Bauer Reason for Consult: ams History of Present Illness: This is a 68-year-old woman history of lung cancer with mets to the brain over bilateral hemisphere as well as brainstem with residual significant right hemiparesis, dysarthria, expressive aphasia, vasogenic edema who presented emergency department because of lethargy, not eating drinking and low blood pressure according to the daughter was at bedside. History is obtained from the patient daughter as well as the who at bedside. Patient is known to me and I have seen the patient last on 01/17/2024 for numbness over the left side felt was due to her mets causing cortical irritability and since then the patient was discharged to nursing facility and there according to the family members she has not been eating drinking having low blood pressure. Per family members they think at facility she is been getting the Keppra. No seizure-like activity. Some of the workup during this hospital visit consisted of: CT of the head is reported as no acute intracranial bleed. Multifocal area of low-attenuation in the right parietal, left temporal and ewelina related to known metastatic disease. This is new focal region of low density within the left basal ganglia thalamus which I also represent new site of metastatic disease versus age indeterminate lacunar infarct. Chest CTA is reported as bilateral acute pulmonary emboli. Additionally there is findings suggestive of underlying right heart strain. Patchy groundglass and consolidative opacity in the lower lobe consistent with atelectasis and or developing pulmonary infarction. Venous of the lower is positive for DVT in the bilateral lower extremities. Review of Systems per HPI. Past Medical History Past Medical History: Cancer, Hyperlipidemia, Thyroid Disorder Additional Past Medical History / Comment(s): previously 3 nodules on right side, Lung CA, Brain CA History of Any Multi-Drug Resistant Organisms: None Reported Past Surgical History: Hysterectomy Additional Past Surgical History / Comment(s): previous thyroidectomy - right side. Past Anesthesia/Blood Transfusion Reactions: No Reported Reaction Past Psychological History: No Psychological Hx Reported Smoking Status: Former smoker Past Alcohol Use History: Occasional Past Drug Use History: None Reported - Past Family History Father Family Medical History: Cancer, Hearing Disorder / Deafness Additional Family Medical History / Comment(s): lung Medications and Allergies Home Medications Medication Instructions Recorded Confirmed Type Metoprolol Tartrate [Lopressor] 25 mg PO BID 30 Days #60 tab 12/26/20 01/27/24 Rx Ezetimibe [Zetia] 10 mg PO HS 03/15/22 01/27/24 History OLANZapine [ZyPREXA] 2.5 mg PO HS 09/12/22 01/27/24 History Atorvastatin [Lipitor] 80 mg PO HS 01/15/24 01/27/24 History lisinopriL [Zestril] 5 mg PO DAILY 01/15/24 01/27/24 History oxyBUTYnin chloride [Ditropan] 5 mg PO Q12H 01/15/24 01/27/24 History Aspirin 81 mg PO DAILY tab 01/20/24 01/27/24 Rx Docusate [Colace] 100 mg PO BID cap 01/20/24 01/27/24 Rx dexAMETHasone [Decadron] See Taper PO DIRECTED #0 01/20/24 01/27/24 Rx polyethylene glycoL 3350 [Miralax] 17 gm PO DAILY #0 packet 01/20/24 01/27/24 Rx Omeprazole [PriLOSEC] 20 mg PO DAILY 01/27/24 01/27/24 History levETIRAcetam [Keppra] 500 mg PO BID 01/27/24 01/27/24 History Apixaban [Eliquis Starter Pack 5 - 10 mg PO DIRECTED 30 Days 01/28/24 Rx (for VTE)] #1 each Allergies Allergy/AdvReac Type Severity Reaction Status Date / Time No Known Allergies Allergy Verified 01/27/24 17:29 Physical Examination - Vital Signs Vital Signs: Vital Signs Temp Pulse Resp BP Pulse Ox 01/28/24 12:13 97.7 F 97 16 127/77 93 L 01/28/24 08:45 97.6 F 95 14 104/72 96 01/28/24 07:00 94 15 107/68 95 01/28/24 06:15 97.8 F 92 16 113/76 95 01/28/24 05:30 91 18 102/73 95 01/28/24 05:12 93 15 99/67 95 01/28/24 04:06 89 17 111/68 96 01/28/24 03:01 88 17 94/63 94 L 01/28/24 01:08 85 15 99/73 96 01/28/24 00:16 82 12 100/77 96 01/27/24 23:00 86 18 90/57 96 01/27/24 22:00 83 12 87/64 95 01/27/24 21:00 88 12 99/62 95 01/27/24 20:00 84 12 81/63 96 01/27/24 19:07 91 12 96/66 94 L 01/27/24 17:00 91 12 101/69 92 L 01/27/24 16:20 91 16 92/70 95 Intake and Output 01/28/24 01/28/24 01/28/24 06:59 14:59 22:59 Intake Total 109.116 112.801 Balance 109.116 112.801 Intake: Intake, IV Titration 109.116 112.801 Amount Heparin Sod,Pork in 0.45% 109.116 112.801 NaCl 25,000 unit In 0.45 % NaCl 1 250ml.bag @ 18 UNITS/KG/HR 11.839 mls/hr IV .Q21H7M [facility] Rx#: [id number] General: Is not in acute distress. Neuro: Very limited. Is moderate to severely drowsy but is awakeable to voice. Upon her waking up from sleep she was asking family members who I was. Unable to assess because of her overall condition. Results - Laboratory Findings CBC and BMP: 01/27/24 15:59 01/27/24 15:55 Abnormal Lab Findings: Abnormal Labs 01/27/24 01/27/24 01/27/24 15:55 15:55 15:55 WBC RBC Hgb Hct RDW Neutrophils # Lymphocytes # PT 13.5 H INR 1.3 H APTT D-Dimer Chloride 115 H Carbon Dioxide 12 L BUN 33 H Glucose 208 H AST 167 H ALT 147 H Alkaline Phosphatase 202 H Troponin I 1.990 H* Total Protein 6.1 L Albumin 3.4 L Urine Appearance Urine Protein Urine Ketones Urine Blood Urine Bilirubin Urine Bacteria Urine Mucus 01/27/24 01/27/24 01/28/24 15:55 15:59 00:15 WBC 24.7 H RBC 5.81 H Hgb 18.5 H Hct 57.5 H* RDW 17.5 H Neutrophils # 22.9 H Lymphocytes # 0.7 L PT INR APTT D-Dimer 28.65 H Chloride Carbon Dioxide BUN Glucose AST ALT Alkaline Phosphatase Troponin I Total Protein Albumin Urine Appearance Cloudy H Urine Protein 1+ H Urine Ketones 1+ H Urine Blood Moderate H Urine Bilirubin 1+ H Urine Bacteria Many H Urine Mucus Rare H 01/28/24 01/28/24 01/28/24 02:23 02:23 14:19 WBC RBC Hgb Hct RDW Neutrophils # Lymphocytes # PT 13.3 H INR 1.3 H APTT 185.3 H* 108.9 H* D-Dimer Chloride Carbon Dioxide BUN Glucose AST ALT Alkaline Phosphatase Troponin I Total Protein Albumin Urine Appearance Urine Protein Urine Ketones Urine Blood Urine Bilirubin Urine Bacteria Urine Mucus Assessment and Plan Assessment: This is a 68-year-old woman history of lung cancer with mets to the brain who presents from her nursing facility because of patient, lack of nutrition. Altered mental status due to brain mets with multiple lesion with vasogenic edema Bilateral pulmonary embolism Bilateral lower extremity DVT History of lung cancer with mets to the brain over bilateral hemisphere as well as brainstem with residual significant right hemiparesis, dysarthria, expressive aphasia as well as has left lateral rectus palsy. History of left-sided numbness due to her brain mets causing cortical irritabil ity and better controlled with Keppra Plan: I resumed the Keppra 500 mg every 12 hours Patient is on Decadron 4 mg every 4 hours and was given 10 mg once by the ED physician. Oncology team is consulted Pulmonary team is consulted On heparin drip for her PE and DVTs. Patient family does not want any further workup from neurology perspective and they want speak with hospice and they are considering hospice. Plan discussed with the patient's as well as the patient's daughter who are bedside. Thank you for the consultation. Time with Patient: Greater than 30
--- NOTE | 2024-01-28 18:22 | P.HPIM ---
History of Present Illness H&P Date: 01/28/24 HISTORY OF PRESENT ILLNESS: This is a 68-year-old female with a previous medical history significant for hypertension and hypertensive cardiovascular disease, hyperlipidemia, history of 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 Amado that was diagnosed back 03/20/2022 after she underwent flexible bronchoscopy with transbronchial biopsy and she was found to have metastatic adenocarcinoma of the lung to the lymph nodes, in the interim patient presented with ataxia to [facility] where she was found to have metastatic brain lesion in the ewelina with significant edema she was referred to [facility] was seen by neurosurgery and she was started by them on dexamethasone due to significant amount of edema, and the n patient underwent NGS that was positive for BRAF and V680 and she was started on targeted therapy for that in the form of Tafinlar as well as Mekinist, she just finished 10 sessions of radiation therapy with Dr. Shaikh on January 13, 2024 patient was in her usual state of health at about yesterday when she developed to have a significant numbness in the left side of her arm and patient was concerned about it she was having some issues finding the words as well, therefore she was brought into the emergency department at [facility], after she was sent from Dr. Shaikh's office where she had a referral to see him yesterday, patient was quite debilitated has been declining over the last week since she was moved to [facility] [place], not been eating much, with increased swelling in both lower extremities, patient was seen in the emergency department, had a CT scan of the brain that did show evidence of metastatic brain disease, along with a new lesion in the brainstem area in the basal ganglia, patient was quite obtunded, with the dysphagia, as well as significant right-sided weakness, not able to say anything, patient ended up going for a CT angiography of the chest that showed evidence of bilateral pulmonary emboli, that are numerous, ultrasound of the lower extremity showed evidence of bilateral deep venous thrombosis as well, she was seen earlier by pulmonary medicine as well as by neurology and it was recommended for the patient to be started on heparin drip at this point in time, patient's family is leaning toward hospice care at this point in time, she will be admitted to a hospice care in the hospital prognosis is very dismal at this point in time, patient was started on Decadron every 4 hours, she has been started also on pain management as well she was kept on Keppra 500 mg IV piggyback every 12 hours for seizure precautions I spoke with the daughter and her sister at the bedside and they wanted to go for hospice at this point. REVIEW OF SYSTEMS: Constitutional: No documented fever, no chills, no night sweats. No weight change. No weakness, fatigue or lethargy. No daytime sleepiness. EENT: positive for headache. No blurred vision positive for double vision, no loss of vision. No loss of Hearing, no ringing in the ears, positive for diz ziness. No nasal drainage or congestion. No epistaxis. No sore throat. Lungs: Positive for shortness of breath, occasional cough, no sputum production. No wheezing. Reports dyspnea with activity. Cardiovascular: No chest pain, no lower extremity edema. No palpitations. No paroxysmal nocturnal dyspnea. No orthopnea. No lightheadedness or dizziness. No syncopal episodes. Abdominal: Reports no abdominal pain. positive for nausea,no vomiting. No diarrhea. No constipation. No bloody or tarry stools reports loss of appetite. Genitourinary: No dysuria, increased frequency, urgency. No urinary retention. Musculoskeletal: No myalgias. positive for muscle weakness, positive for gait d ysfunction, positive for frequent falls. No back pain. positive for neck pain. Integumentary: No wounds, no lesions. No rash or pruritus. No unusual bruising. No change in hair or nails. Neurologic: Positive for aphasia. Positive for facial droop. Positive for change in mentation. No head injury. positive for headache.positive or paralysis of the right side Psychiatric: No depression. No anxiety. No mood swings. Endocrine: No abnormal blood sugars. Positive for weight change. PAST MEDICAL HISTORY: Hypertension and hypertensive cardiovascular disease. Mixed hyperlipidemia. 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 Overactive bladder. GERD. Thyroid nodule. Coronary artery disease. PAST SURGICAL HISTORY: Partial hysterectomy. Right thyroidectomy. Bronchoscopy with transbronchial biopsy March 2022 Left heart catheterization with PCI April 2020. SOCIAL HISTORY: Patient used to smoke about a pack every day since she was a teenager, and she quit more than 20 years ago, she denies any alcohol ingestion, she denies any drug use or abuse. FAMILY HISTORY: Father at the age of 61 from lung cancer mother is still alive 90-year-old with history of hypertension CVA and hyperlipidemia patient has 1 sister 67-year-old with diabetes mellitus type 2, hyperlipidemia, patient has 1 daughter 41-year-old with diabetes mellitus type 2, paternal grandfather from [place] paternal grandmother from an [place] maternal grandfather from heart disease as well maternal grandmother from old age. PHYSICAL EXAMINATION: General: 68-year-old female laying down in bed HEENT: Head is atraumatic, normocephalic, disconjugate gaze with nystagmus, sclera nonicteric, conjunctivae were pale, mucous membranes of the mouth are somewhat dry. Neck: Supple, no JVP, normal carotid upstroke bilaterally, no lymphadenopathy. Chest: Decreased breath sounds at the bases, few rhonchi, no expiratory wheezes, no chest wall tenderness, no intercostal retractions. Heart: First heart sound is normal, second heart sounds normal there is no gallop or murmur. Abdomen: Soft, nontender, nondistended, positive bowel sounds. Extremities: There is +2 edema positive for calf tenderness DP +2 bilaterally. Neurologic examination: Patient is obtunded, right-sided weakness, aphasia, dysphagia and facial droop. ASSESSMENT AND PLAN: 1. Bilateral pulmonary emboli plus bilateral lower extremity DVT. Multifactorial due to malignancy steroid use inability to ambulate much, patient was seen earlier by pulmonary medicine, she was started on heparin drip, at this point in time, the patient's family did not want any more testing at this point in time, and they were leaning toward having hospice care at this point which is appropriate at this point in time, as the patient prognosis is dismal. 2. Non-small cell lung cancer with metastatic disease to the brain status post whole brain radiation therapy as well as BRAF positive treatment. Patient has been off her treatment for the last week since she left the hospital. 3. Hypertension and hypertensive cardiovascular disease. Her blood pressure has been stable off the medication. 4. Mixed hyperlipidemia. No need for statins at this point. 5. Coronary artery disease status post PCI in 04/28/2020. Stable at this time. 6. Overactive bladder. Has a Prasad catheter in place 7. 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 patient was seen by hematology oncology and they were in agreement for hospice care. 8. Polycythemia vera. 10. GI prophylaxis. Continue patient on Protonix 40 mg IV push every 24 hours. 11. Patient will be admitted to hospice later on this evening. 12. No CODE STATUS. Past Medical History Past Medical History: Cancer, Hyperlipidemia, Thyroid Disorder Additional Past Medical History / Comment(s): previously 3 nodules on right side, Lung CA, Brain CA History of Any Multi-Drug Resistant Organisms: None Reported Past Surgical History: Hysterectomy Additional Past Surgical History / Comment(s): previous thyroidectomy - right side. Past Anesthesia/Blood Transfusion Reactions: No Reported Reaction Past Psychological History: No Psychological Hx Reported Smoking Status: Former smoker Past Alcohol Use History: Occasional Past Drug Use History: None Reported - Past Family History Father Family Medical History: Cancer, Hearing Disorder / Deafness Additional Family Medical History / Comment(s): lung Medications and Allergies Home Medications Medication Instructions Recorded Confirmed Type Metoprolol Tartrate [Lopressor] 25 mg PO BID 30 Days #60 tab 12/26/20 01/27/24 Rx Ezetimibe [Zetia] 10 mg PO HS 03/15/22 01/27/24 History OLANZapine [ZyPREXA] 2.5 mg PO HS 09/12/22 01/27/24 History Atorvastatin [Lipitor] 80 mg PO HS 01/15/24 01/27/24 History lisinopriL [Zestril] 5 mg PO DAILY 01/15/24 01/27/24 History oxyBUTYnin chloride [Ditropan] 5 mg PO Q12H 01/15/24 01/27/24 History Aspirin 81 mg PO DAILY tab 01/20/24 01/27/24 Rx Docusate [Colace] 100 mg PO BID cap 01/20/24 01/27/24 Rx dexAMETHasone [Decadron] See Taper PO DIRECTED #0 01/20/24 01/27/24 Rx polyethylene glycoL 3350 [Miralax] 17 gm PO DAILY #0 packet 01/20/24 01/27/24 Rx Omeprazole [PriLOSEC] 20 mg PO DAILY 01/27/24 01/27/24 History levETIRAcetam [Keppra] 500 mg PO BID 01/27/24 01/27/24 History Apixaban [Eliquis Starter Pack 5 - 10 mg PO DIRECTED 30 Days 01/28/24 Rx (for VTE)] #1 each Allergies Allergy/AdvReac Type Severity Reaction Status Date / Time No Known Allergies Allergy Verified 01/27/24 17:29 Physical Exam Vitals: Vital Signs Temp Pulse Resp BP Pulse Ox 01/28/24 12:13 97.7 F 97 16 127/77 93 L 01/28/24 08:45 97.6 F 95 14 104/72 96 01/28/24 07:00 94 15 107/68 95 01/28/24 06:15 97.8 F 92 16 113/76 95 01/28/24 05:30 91 18 102/73 95 01/28/24 05:12 93 15 99/67 95 01/28/24 04:06 89 17 111/68 96 01/28/24 03:01 88 17 94/63 94 L 01/28/24 01:08 85 15 99/73 96 01/28/24 00:16 82 12 100/77 96 01/27/24 23:00 86 18 90/57 96 01/27/24 22:00 83 12 87/64 95 01/27/24 21:00 88 12 99/62 95 01/27/24 20:00 84 12 81/63 96 01/27/24 19:07 91 12 96/66 94 L 01/27/24 17:00 91 12 101/69 92 L 01/27/24 16:20 91 16 92/70 95 01/27/24 14:40 97.6 F 101 H 18 93/72 93 L Intake and Output 01/27/24 01/28/24 01/28/24 22:59 06:59 14:59 Intake Total 109.116 Balance 109.116 Intake: Intake, IV Titration 109.116 Amount Heparin Sod,Pork in 0.45% 109.116 NaCl 25,000 unit In 0.45 % NaCl 1 250ml.bag @ 18 UNITS/KG/HR 11.839 mls/hr IV .Q21H7M [facility] Rx#: [id number] Results CBC & Chem 7: 01/27/24 15:59 01/27/24 15:55 Labs: Abnormal Lab Results - Last 24 Hours (Table) 01/27/24 01/27/24 01/27/24 Range/Units 15:55 15:55 15:55 WBC (3.8-10.6) k/uL RBC (3.80-5.40) m/uL Hgb (11.4-16.0) gm/dL Hct (34.0-46.0) % RDW (11.5-15.5) % Neutrophils # (1.3-7.7) k/uL Lymphocytes # (1.0-4.8) k/uL PT 13.5 H (10.0-12.5) sec INR 1.3 H (<1.2) APTT (22.0-30.0) sec D-Dimer (<0.60) mg/L FEU Chloride 115 H (98-107) mmol/L Carbon Dioxide 12 L (22-30) mmol/L BUN 33 H (7-17) mg/dL Glucose 208 H (74-99) mg/dL AST 167 H (14-36) U/L ALT 147 H (4-34) U/L Alkaline Phosphatase 202 H (38-126) U/L Troponin I 1.990 H* (0.000-0.034) ng/mL Total Protein 6.1 L (6.3-8.2) g/dL Albumin 3.4 L (3.5-5.0) g/dL Urine Appearance (Clear) Urine Protein (Negative) Urine Ketones (Negative) Urine Blood (Negative) Urine Bilirubin (Negative) Urine Bacteria (None) /hpf Urine Mucus (None) /hpf 01/27/24 01/27/24 01/28/24 Range/Units 15:55 15:59 00:15 WBC 24.7 H (3.8-10.6) k/uL RBC 5.81 H (3.80-5.40) m/uL Hgb 18.5 H (11.4-16.0) gm/dL Hct 57.5 H* (34.0-46.0) % RDW 17.5 H (11.5-15.5) % Neutrophils # 22.9 H (1.3-7.7) k/uL Lymphocytes # 0.7 L (1.0-4.8) k/uL PT (10.0-12.5) sec INR (<1.2) APTT (22.0-30.0) sec D-Dimer 28.65 H (<0.60) mg/L FEU Chloride (98-107) mmol/L Carbon Dioxide (22-30) mmol/L BUN (7-17) mg/dL Glucose (74-99) mg/dL AST (14-36) U/L ALT (4-34) U/L Alkaline Phosphatase (38-126) U/L Troponin I (0.000-0.034) ng/mL Total Protein (6.3-8.2) g/dL Albumin (3.5-5.0) g/dL Urine Appearance Cloudy H (Clear) Urine Protein 1+ H (Negative) Urine Ketones 1+ H (Negative) Urine Blood Moderate H (Negative) Urine Bilirubin 1+ H (Negative) Urine Bacteria Many H (None) /hpf Urine Mucus Rare H (None) /hpf 01/28/24 01/28/24 Range/Units 02:23 02:23 WBC (3.8-10.6) k/uL RBC (3.80-5.40) m/uL Hgb (11.4-16.0) gm/dL Hct (34.0-46.0) % RDW (11.5-15.5) % Neutrophils # (1.3-7.7) k/uL Lymphocytes # (1.0-4.8) k/uL PT 13.3 H (10.0-12.5) sec INR 1.3 H (<1.2) APTT 185.3 H* (22.0-30.0) sec D-Dimer (<0.60) mg/L FEU Chloride (98-107) mmol/L Carbon Dioxide (22-30) mmol/L BUN (7-17) mg/dL Glucose (74-99) mg/dL AST (14-36) U/L ALT (4-34) U/L Alkaline Phosphatase (38-126) U/L Troponin I (0.000-0.034) ng/mL Total Protein (6.3-8.2) g/dL Albumin (3.5-5.0) g/dL Urine Appearance (Clear) Urine Protein (Negative) Urine Ketones (Negative) Urine Blood (Negative) Urine Bilirubin (Negative) Urine Bacteria (None) /hpf Urine Mucus (None) /hpf
--- NOTE | 2024-01-29 12:13 | P.PN ---
Progress Note - Text Per nursing, patients family has met with hospice and is currently making decisions for different hospice options. Cardiology team will sign off. Please reconsult cardiology team if patient's family changes their mind and is interested in pursuing any further cardiac evaluation or workup.
--- NOTE | 2024-01-29 12:23 | P.PN ---
Subjective Progress Note Date: 01/29/24 Patient is 68-year-old female with a medical history significant for adenocarcinoma of the lung with metastasis to the brain, hypertension, and hyperlipidemia who was brought to the emergency department by her for worsening mental status, difficulty swallowing, and difficulty with speech. Patient is a poor historian due to difficulties with her speech and altered mentation and all history is obtained via old records and daughter who is present at bedside. On 01/13/2024 she completed 10 sessions of radiation with Dr. Shaikh and then on 01/15/2024 she presented to the emergency department w ith complaints of numbness in the left arm. Brain CT and CT angiography at the time showed no acute processes. She was admitted to the hospital for further evaluation. On 01/20/2024 she was discharged to [facility]. Her daughter, who is at bedside, states that since her discharge she has been declining. The patient saw Dr. Shaikh yesterday and he advised coming to the emergency department due to her worsening mentation and low blood pressure readings at home. Her daughter states that her speech has significantly worsened over the last few weeks and over the last 2 days she has become less awake and alert. EKG showed normal sinus rhythm. Chest x-ray showed airspace opacities projecting over the spine, correlate for pneumonia. CT brain showed: No acute intracranial bleed, multifocal areas of low-attenuation within the right parietal lobe, left temporal lobe and ewelina related to known metastatic disease; a new focal region of low-density within the left basal ganglia/thalamus which may also represent new site of metastatic disease versus age-indeterminate lacunar infarct. CT angio chest showed: Bilateral acute pulmonary emboli involving main, lobar, segmental, and subsegmental pulmonary artery branches with findings suggestive of underlying right heart strain; patchy groundglass and consolidative opacities in the lower lobes consistent with atelectasis and/or developing pulmonary infarctions. Initial labs showed WBCs 24.7, hemoglobin 18.5, hematocrit 57.5, platelets 250, sodium 141, potassium 4.4, chloride 115, CO2 12, BUN 33, creatinine 0.86, glucose 208, lactic acid 1.6, magnesium 2.2, AST 167, ALT 147, alkaline phosphatase 202, troponin 1.99, NT proBNP 16,700, D-dimer 28.65. The patient is seen today January 29, 2024 in follow-up on the regular medical floor. She is currently resting in bed. Remains somewhat obtunded. Her level of alertness is waxing and waning. It is in the 90s on 2 L/min per nasal cannula. She is afebrile. Hemodynamically stable.. She is continued on Decadron. She remains on a heparin drip for bilateral pulmonary emboli along w ith bilateral lower extremity DVTs and positive troponins. No new labs today. Objective - Vital Signs Vital signs: Vital Signs Temp 98.6 F 01/29/24 08:00 Pulse 104 H 01/29/24 08:00 Resp 21 01/29/24 08:00 BP 123/83 01/29/24 08:00 Pulse Ox 89 L 01/29/24 08:00 FiO2 Intake & Output 01/28/24 01/29/24 01/29/24 18:59 06:59 18:59 Intake Total 112.801 74.457 0 Balance 112.801 74.457 0 Weight 65.771 kg Intake: Intake, IV Titration 112.801 74.457 Amount Heparin Sod,Pork in 0.45% 112.801 74.457 NaCl 25,000 unit In 0.45 % NaCl 1 250ml.bag @ 18 UNITS/KG/HR 11.839 mls/hr IV .Q21H7M [facility] Rx#: [id number] Oral 0 Other: Voiding Method Indwelling Catheter - Exam GENERAL EXAM: Obtunded, minimally responsive 68-year-old female, on 2 L nasal cannula, in no apparent distress. HEAD: Normocephalic. EYES: Normal reaction of pupils, equal size. NOSE: Clear with pink turbinates. THROAT: No erythema or exudates. NECK: No masses, no JVD. CHEST: No chest wall deformity. LUNGS: Equal air entry with no crackles, wheeze, rhonchi or dullness. CVS: S1 and S2 normal with no audible murmur, regular rhythm. ABDOMEN: No hepatosplenomegaly, normal bowel sounds, no guarding or rigidity. SPINE: No scoliosis or deformity SKIN: No rashes CENTRAL NERVOUS SYSTEM: Obtunded, tone is normal in all 4 extremities. EXTREMITIES: There is no peripheral edema. No clubbing, no cyanosis. Peripheral pulses are intact. - Labs CBC & Chem 7: 01/27/24 15:59 01/27/24 15:55 Labs: Abnormal Lab Results - Last 24 Hours (Table) 01/28/24 01/28/24 Range/Units 14:19 23:54 APTT 108.9 H* 46.4 H (22.0-30.0) sec Assessment and Plan Assessment: Submassive bilateral pulmonary emboli with bilateral lower extremity DVTs. Currently on a heparin drip Non-small cell lung cancer with metastatic disease to the brain, status post whole brain radiation therapy as well as BRAF positive treatment Right-sided hemiparesis Dysarthria Dysphagia as reported by the daughter History of hypertension History of hyperlipidemia History of IL with coronary artery disease status post stenting December 2020 History of right-sided thyroidectomy Former smoker Polycythemia vera Plan: The patient was seen and evaluated Currently stable on 2 L nasal cannula Very minimally responsive Remains on a heparin drip for now Daughter is at the bedside Plan is for hospice care They will be meeting with family again today This patient was seen independently by the pulmonary nurse practitioner addressing pulmonary issues I have personally seen and examined the patient, performed the documentation and the assessment and plan as written. Number of minutes spent on the visit: 24 Dictation was produced using [employer] dictation software. Please excuse any grammatical, word or spelling errors.
[2024-01-29 14:29] VITALS: BP 120/81; PULSE 102; RESP 20; TEMP 97.5
--- NOTE | 2024-01-29 14:30 | P.PN ---
Subjective Progress Note Date: 01/29/24 I am following up with the patient and the patient is accompanied with her daughter. The daughter stated that they had a meeting with hospice yesterday and it seems that patient's is not on board yet but the daughter feels the appropriate thing is likely to pursue hospice. Objective - Vital Signs Vital signs: Vital Signs Temp 98.6 F 01/29/24 08:00 Pulse 104 H 01/29/24 08:00 Resp 21 01/29/24 08:00 BP 123/83 01/29/24 08:00 Pulse Ox 89 L 01/29/24 08:00 FiO2 Intake & Output 01/28/24 01/29/24 01/29/24 18:59 06:59 18:59 Intake Total 112.801 74.457 0 Balance 112.801 74.457 0 Weight 65.771 kg Intake: Intake, IV Titration 112.801 74.457 Amount Heparin Sod,Pork in 0.45% 112.801 74.457 NaCl 25,000 unit In 0.45 % NaCl 1 250ml.bag @ 18 UNITS/KG/HR 11.839 mls/hr IV .Q21H7M [facility] Rx#: [id number] Oral 0 Other: Voiding Method Indwelling Catheter - Exam General: Lying in bed and is not in acute distress. Neuro: Very Limited. Is drowsy but is awakeable to voice. Is oriented to self. Followed few simple commands. Otherwise went back asleep. Sounds hoarse. - Labs CBC & Chem 7: 01/27/24 15:59 01/27/24 15:55 Labs: Abnormal Lab Results - Last 24 Hours (Table) 01/28/24 01/28/24 Range/Units 14:19 23:54 APTT 108.9 H* 46.4 H (22.0-30.0) sec Assessment and Plan Assessment: This is a 68-year-old woman history of lung cancer with mets to the brain who presents from her nursing facility because of patient, lack of nutrition. Altered mental status due to brain mets with multiple lesion with vasogenic edema Bilateral pulmonary embolism Bilateral lower extremity DVT History of lung cancer with mets to the brain over bilateral hemisphere as well as brainstem with residual significant right hemiparesis, dysarthria, expressive aphasia as well as has left lateral rectus palsy. History of left-sided numbness due to her brain mets causing cortical ir ritability and better controlled with Keppra Plan: I resumed the Keppra 500 mg every 12 hours Patient is on Decadron 4 mg every 4 hours and was given 10 mg once by the ED ph ysician. Oncology team is consulted Pulmonary team is consulted On heparin drip for her PE and DVTs. Patient family does not want any further workup from neurology perspective. Per daughter she is on board with hospice but patient's is not committed yet. and they want speak with hospice and they are considering hospice. They will have another meeting with hospice. Plan discussed with the patient's daughter who is at bedside and her nurse. Will follow-up sporadically. Time with Patient: Less than 30
--- NOTE | 2024-01-29 16:12 | P.DS ---
Providers Date of admission: 01/27/24 18:49 Expected date of discharge: 01/29/24 Attending physician: Papo Granados Consults: 01/27/24 18:47 Consult Physician Routine Consulting Provider: Pippa Prasad Consult Reason/Comments: BL PEs Do you want consulting provider notified?: Yes Consult Physician Routine Consulting Provider: Tyrone Shaikh Consult Reason/Comments: known Do you want consulting provider notified?: Yes Consult Physician Stat Consulting Provider: Mesfin Vega Consult Reason/Comments: PE Do you want consulting provider notified?: Yes Consult Physician Urgent Consulting Provider: Ady Vega Consult Reason/Comments: ams Do you want consulting provider notified?: Yes 01/28/24 07:44 Consult Physician Routine Consulting Provider: Jose Ramon Lin Consult Reason/Comments: lung ca, mets Do you want consulting provider notified?: Yes Primary care physician: Papo Granados [facility] Course: HISTORY OF PRESENT ILLNESS: This is a 68-year-old female with a previous medical history significant for hypertension and hypertensive cardiovascular disease, hyperlipidemia, history of 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 Amado that was diagnosed back 03/20/2022 after she underwent flexible bronchoscopy with transbronchial biopsy and she was found to have metastatic adenocarcinoma of the lung to the lymph nodes, in the interim patient presented with ataxia to [facility] where she was found to have metastatic brain lesion in the ewelina with significant edema she was referred to [facility] was seen by neurosurgery and she was started by them on dexamethasone due to significant amount of edema, and then patient underwent NGS that was positive for BRAF and V680 and she was started on targeted therapy for that in the form of Tafinlar as well as Mekinist, she just finished 10 sessions of radiation therapy with Dr. Shaikh on January 13, 2024 patient was in her usual state of health at about yesterday when she developed to have a significant numbness in the left side of her arm and patient was concerned about it she was having some issues finding the words as well, therefore she was brought into the emergency department at [facility], after she was sent from Dr. Shaikh's office where she had a referral to see him yesterday, patient was quite debilitated has been declining over the last week since she was moved to [facility] on the [place], not been eating much, with increased swelling in both lower extremities, patient was seen in the emergency department, had a CT scan of the brain that did show evidence of metastatic brain disease, along with a new lesion in the brainstem area in the basal ganglia, patient was quite obtunded, with the dysphagia, as well as significant right-sided weakness, not able to say anything, patient ended up going for a CT angiography of the chest that showed evidence of bilateral pulmonary emboli, that are numerous, ultrasound of the lower extremity showed evidence of bilateral deep venous thrombosis as well, she was seen earlier by pulmonary medicine as well as by neurology and it was recommended for the patient to be started on heparin drip at this point in time, patient's family is leaning toward hospice care at this point in time, she will be admitted to a hospice care in the hospital prognosis is very dismal at this point in time, patient was started on Decadron every 4 hours, she has been started also on pain management as well she was kept on Keppra 500 mg IV piggyback every 12 hours for seizure precautions I spoke with the daughter and her sister at the bedside and they wanted to go for hospice at this point. 01/28: Patient is excepted at the hospice house, patient is going for hospice care at this point in time due to metastatic lung cancer to the brain with bilateral pulmonary emboli and bilateral DVT, patient will be discharged to the hospice house this evening. Discharge diagnoses: 1. Bilateral pulmonary emboli plus bilateral lower extremity DVT. 2. Non-small cell lung cancer with metastatic disease to the brain status post whole brain radiation therapy as well as BRAF positive treatment. 3. Hypertension and hypertensive cardiovascular disease. 4. Mixed hyperlipidemia. 5. Coronary artery disease status post PCI in 04/28/2020. 6. Overactive bladder. 7. 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 8. Polycythemia vera. Patient Condition at Discharge: Serious Plan - Discharge Summary Discharge Rx Participant: No New Discharge Prescriptions: New Apixaban [Eliquis Starter Pack (for VTE)] 5 - 10 mg PO DIRECTED 30 Days #1 each No Action Metoprolol Tartrate [Lopressor] 25 mg PO BID 30 Days #60 tab Ezetimibe [Zetia] 10 mg PO HS OLANZapine [ZyPREXA] 2.5 mg PO HS lisinopriL [Zestril] 5 mg PO DAILY Docusate [Colace] 100 mg PO BID cap polyethylene glycoL 3350 [Miralax] 17 gm PO DAILY #0 packet Omeprazole [PriLOSEC] 20 mg PO DAILY oxyBUTYnin chloride [Ditropan] 5 mg PO Q12H Atorvastatin [Lipitor] 80 mg PO HS Aspirin 81 mg PO DAILY tab dexAMETHasone [Decadron] See Taper PO DIRECTED #0 levETIRAcetam [Keppra] 500 mg PO BID Discharge Medication List Metoprolol Tartrate [Lopressor] 25 mg PO BID 30 Days #60 tab 12/26/20 [Rx] Ezetimibe [Zetia] 10 mg PO HS 03/15/22 [History] OLANZapine [ZyPREXA] 2.5 mg PO HS 09/12/22 [History] Atorvastatin [Lipitor] 80 mg PO HS 01/15/24 [History] lisinopriL [Zestril] 5 mg PO DAILY 01/15/24 [History] oxyBUTYnin chloride [Ditropan] 5 mg PO Q12H 01/15/24 [History] Aspirin 81 mg PO DAILY tab 01/20/24 [Rx] Docusate [Colace] 100 mg PO BID cap 01/20/24 [Rx] dexAMETHasone [Decadron] See Taper PO DIRECTED #0 01/20/24 [Rx] polyethylene glycoL 3350 [Miralax] 17 gm PO DAILY #0 packet 01/20/24 [Rx] Omeprazole [PriLOSEC] 20 mg PO DAILY 01/27/24 [History] levETIRAcetam [Keppra] 500 mg PO BID 01/27/24 [History] Apixaban [Eliquis Starter Pack (for VTE)] 5 - 10 mg PO DIRECTED 30 Days #1 each 01/28/24 [Rx] Follow up Appointment(s)/Referral(s): Papo Granados MD [Primary Care Provider] - 1-2 days Jose Ramon Lin MD [STAFF PHYSICIAN] - 02/08/24 1:30 pm
== END 2024-01-29 18:05 | disposition hospice, inpatient (51) | DRG 299 ==
LOC: EC 14:33 → 2SICU 18:49 → 5NMEDONC 01-28 09:25
PROVIDERS: ADMIT Internal Medicine; ATTEND Internal Medicine
DX: I82.403 Acute embolism and thrombosis of unspecified deep veins of lower extremity, bilateral (principal); G93.6 Cerebral edema; I26.99 Other pulmonary embolism without acute cor pulmonale; C79.31 Secondary malignant neoplasm of brain; C34.90 Malignant neoplasm of unspecified part of unspecified bronchus or lung; G81.91 Hemiplegia, unspecified affecting right dominant side; R47.01 Aphasia; E78.2 Mixed hyperlipidemia; Z51.5 Encounter for palliative care; D45 Polycythemia vera; N32.81 Overactive bladder; I25.10 Atherosclerotic heart disease of native coronary artery without angina pectoris; Z95.5 Presence of coronary angioplasty implant and graft; R13.10 Dysphagia, unspecified; R20.0 Anesthesia of skin; Z66 Do not resuscitate; Z85.118 Personal history of other malignant neoplasm of bronchus and lung; R47.1 Dysarthria and anarthria; D18.09 Hemangioma of other sites; I10 Essential (primary) hypertension; H49.22 Sixth [abducent] nerve palsy, left eye; K76.89 Other specified diseases of liver; E03.9 Hypothyroidism, unspecified; Z79.890 Hormone replacement therapy; I25.2 Old myocardial infarction; Z79.82 Long term (current) use of aspirin; Z79.899 Other long term (current) drug therapy; Z82.49 Family history of ischemic heart disease and other diseases of the circulatory system; Z85.841 Personal history of malignant neoplasm of brain; Z87.891 Personal history of nicotine dependence; Z90.711 Acquired absence of uterus with remaining cervical stump
CPT/HCPCS: 36415; 51701; 70450; 71046; 71275; 80053; 81001; 83605; 83735; 83880; 84100; 84484; 85025; 85379; 85610; 85730; 93005; 93970; 96365; 96366; 96375; 96376; 99291; 99292